=== PATIENT | female | born 1970 | race Caucasian/White ===

== ENCOUNTER 2024-04-03 21:15 | Emergency (ER) | payer OTHER, MEDICAID, SELFPAY ==
[2024-04-03 21:16] VITALS: BMI 37.0
[2024-04-03 21:31] VITALS: BP 151/87; PULSE 79; RESP 16; TEMP 36.4; O2SAT 96
--- NOTE | 2024-04-03 21:43 | XR_ITS ---
Examination: PA lateral chest 2 views Technique: Upright PA lateral chest 2 views Exam date and time: April 03, 2024 1006 hrs. Comparison 02/02/2024 Indications: Chest pain today. Findings: Bilateral perihilar basilar pneumonia with bilateral subsegmental atelectasis Minor prominence left ventricle Mild vascular congestion Impression: Bilateral perihilar bibasilar pneumonia
--- NOTE | 2024-04-03 21:43 | EKG_ITS ---
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) Order Number: [id number] Reading MD: Donald Staley ([facility]) Measurements Intervals [place] Rate: 77 P: 66 [place]: 153 QRS: 106 QRSD: 96 T: 66 QT: 331 QTc: 377 Interpretive Statements SINUS RHYTHM MARKED RIGHT AXIS DEVIATION [QRS AXIS > 100] LOW QRS VOLTAGE IN PRECORDIAL LEADS [QRS DEFLECTION < 1.0 mV IN CHEST LEADS] NONSPECIFIC T-WAVE ABNORMALITY Compared to ECG 02/02/2024 21:33:24 Right-axis deviation now present Low QRS voltage now present T-wave abnormality now present /store/S0/[id number]/ecg/[id number].pdf
--- NOTE | 2024-04-03 21:47 | PD.EDRME ---
Rapid Medical Screening Exam RME Arrival date/time: 04/03/24 21:15 53-year-old female with past medical history of diabetes hyperlipidemia and CHF presents emergency department complaining of chest pain has been ongoing for several months. Chief Complaint: Chest Pain Time Seen by Provider: 04/03/24 21:35 Vital signs: Vital Signs Temperature 97.5 F 04/03/24 21:31 Pulse Rate 79 04/03/24 21:31 Respiratory Rate 16 04/03/24 21:31 Blood Pressure 151/87 H 04/03/24 21:31 Pulse Oximetry (%) 96 04/03/24 21:31 Oxygen Delivery Method Room Air 04/03/24 21:31 Vital signs reviewed by provider: Yes
[2024-04-03 22:13] LABS: Collection Type, Urine Clean Catch
[2024-04-03 22:18] LABS: Basophils % (Auto) 0 % (0-2.5); Eosinophils # (Auto) 0.2 Thou/mm3 (0.0-0.5); Eosinophils % (Auto) 2 % (0-10); Hematocrit 41.3 % (36.0-46.0); Hemoglobin 13.4 g/dL (12.0-16.0); Immature Granulocytes % (Auto) 1 % (0-0); Immature Granulocytes Auto 0.05 Thou/mm3 (0.00-0.00); Lymphocytes # (Auto) 1.8 Thou/mm3 (1.0-4.8); Lymphocytes % (Auto) 18 % (10-50); Mean Corpuscular HGB Conc 32.4 g/dl (31.0-37.0); Mean Corpuscular Hemoglobin 30.2 pg (25.0-35.0); Mean Corpuscular Volume 93 fL (80-100); Monocytes # (Auto) 0.9 Thou/mm3 (0.0-0.8); Monocytes % (Auto) 9 % (0-12); Neutrophils # (Auto) 7.2 Thou/mm3 (1.8-7.7); Neutrophils % (Auto) 71 % (37-80); Nucleated Red Blood Cell % 0 /100 WBC (0); Platelet Count 313 Thou/mm3 (140-440); RDW Standard Deviation 46.6 fL (36.4-46.3); Red Blood Count 4.43 Miln/mm3 (4.00-5.20); White Blood Count 10.1 Thou/mm3 (3.6-11.0)
[2024-04-03 22:32] LABS: Bilirubin,Urine Negative (Negative); Blood,Urine Negative (Negative); Clarity,Urine Clear (Clear/Hazy); Color,Urine Colorless (Lt Yel-Yel); Glucose, Urine Negative (Negative); Ketones,Urine Negative (Negative); Leukocyte Esterase,Urine Negative (Negative); Nitrite,Urine Negative (Negative); Protein,Urine Negative (Neg - Trace); RBC,Urine 1 /hpf (0-3); Specific Gravity,Urine 1.006 (1.001-1.035); Squamous Epithelial Cell,Urine 1 /hpf (0-5); Urobilinogen,Urine Negative mg/dL (0.0-1.0); WBC,Urine < 1 /hpf (0-5)
[2024-04-03 22:34] LABS: INR 0.9 (0.9-1.3); Partial Thromboplastin Time 23.7 Seconds (22.0-36.0); Prothrombin Time 10.3 Seconds (9.0-12.2)
[2024-04-03 22:39] LABS: B-Type Natriuretic Peptide < 20 pg/mL (0-100)
[2024-04-03 22:47] LABS: Alanine Aminotransferase 21 U/L (10-49); Albumin, Serum 4.4 gm/dL (3.5-5.0); Albumin/Globulin Ratio 1.7 (1.2-2.2); Alkaline Phosphatase 105 U/L (46-116); Anion Gap 3 (7-16); Aspartate Amino Transferase 14 U/L (0-34); BUN/Creatinine Ratio 13 Ratio (12-20); Bilirubin,Total 0.2 mg/dL (0.3-1.2); Blood Urea Nitrogen 13 mg/dL (9-23); Calcium 10.7 mg/dL (8.3-10.6); Calcium (Corrected) 10.7 mg/dL (8.5-10.1); Chloride 100 mMol/L (98-107); Globulin 2.6 gm/dL (2.3-3.5); Glucose 183 mg/dL (74-106); Magnesium 1.7 mg/dL (1.6-2.6); Osmolality,Calculated 277 (275-295); Potassium 4.1 mMol/L (3.4-5.1); Sodium 136 mMol/L (136-145); Troponin I < 0.020 ng/mL (0.0-0.045); eGFR > 60 See Note
[2024-04-03 23:59] LABS: Amphetamine/Methamp Scrn,U Negative (Negative); Barbiturate Screen,Urine Negative (Negative); Benzodiazepines Screen,Urine Negative (Negative); Benzoylecgonine Screen, Ur Negative (Negative); Fentanyl Screen,Urine Positive (Negative); Opiate Screen,Urine Negative (Negative); THC Screen,Urine Positive (Negative)
--- NOTE | 2024-04-04 00:46 | PD.EDCHEST ---
ED Chest Pain RME/HPI General Chief Complaint: Chest Pain Stated Complaint: CHEST PAIN RADIATES TO BACK Time Seen by Provider: 04/03/24 21:35 Source: patient Arrival date/time: 04/03/24 21:15 53-year-old female with past medical history of diabetes hyperlipidemia and CHF presents emergency department complaining of chest pain has been ongoing for several months. Patient denies any fever, chills, shortness of breath, nausea vomiting, palpitations, or any other associated symptom. Mode of arrival: ambulatory Limitations: physical limitation RME / HPI RME / HPI narrative: 04/03/24 21:15 53-year-old female with past medical history of diabetes hyperlipidemia and CHF presents emergency department complaining of chest pain has been ongoing for several months. Related Data Home Medications ?Medication ?Instructions ?Recorded ?Confirmed lithium carbonate 300 mg 300 mg PO BID ##0 04/22/17 11/14/22 tablet,extended release montelukast 10 mg tablet 10 mg PO QDAY #0 tabs 05/31/17 11/14/22 (Singulair) dexlansoprazole 60 mg 60 mg PO DAILY 11/18/20 11/14/22 capsule,biphase delayed release (Dexilant) pregabalin 75 mg capsule 75 mg PO TID PRN Pain 11/18/20 11/14/22 risperidone 3 mg tablet 6 mg PO HS 11/18/20 11/14/22 atorvastatin 40 mg tablet 40 mg PO DAILY 12/08/21 11/14/22 ropinirole 5 mg tablet 5 mg PO HS 12/08/21 11/14/22 tizanidine 4 mg tablet 4 mg PO BID 12/08/21 11/14/22 levothyroxine 50 mcg tablet 50 mcg PO DAILY 12/09/21 11/14/22 naloxegol 25 mg tablet (Movantik) 25 mg PO DAILY 12/09/21 11/14/22 paroxetine HCl 40 mg tablet 40 mg PO HS 05/13/22 11/14/22 buspirone 15 mg tablet 15 mg PO TID 06/21/22 11/14/22 docusate sodium 100 mg capsule 100 mg PO TID 06/21/22 11/14/22 insulin glargine 100 unit/mL (3 36 unit subcut QPM 06/21/22 11/14/22 mL) subcutaneous pen (Basaglar KwikPen U-100 Insulin) lamotrigine 100 mg tablet 150 mg PO BID 06/21/22 11/14/22 metformin 500 mg tablet 500 mg PO BID 06/21/22 11/14/22 quetiapine 300 mg tablet 300 mg PO HS 06/21/22 11/14/22 trazodone 150 mg tablet 375 mg PO HS 06/21/22 11/14/22 Previous Rx's ?Medication ?Instructions ?Recorded acetaminophen 500 mg capsule 1,000 mg (2 x 500 mg) PO TID #30 12/15/22 caps benzonatate 200 mg capsule 200 mg PO TID PRN cough #20 caps 12/15/22 pantoprazole 40 mg tablet,delayed 40 mg PO QDAY #20 tabs 01/16/24 release (Protonix) levofloxacin 750 mg tablet 750 mg PO QDAY 5 days #5 tabs 04/04/24 Allergies Allergy/AdvReac Type Severity Reaction Status Date / Time chocolate flavor Allergy Severe BLISTERS Verified 12/25/23 19:12 IN MOUTH NSAIDS (Non-Steroidal Allergy Severe Nausea Verified 12/25/23 19:12 Anti-Inflamma gold Au 198 Allergy Intermediate RASH Verified 12/25/23 19:12 ibuprofen Allergy Intermediate NAUSEA AND Verified 12/25/23 19:12 VOMITING promethazine Allergy Mild RASH/SOB Verified 12/25/23 19:12 ketorolac AdvReac Unknown NAUSEA Verified 12/25/23 19:12 VOMITING, STOMACH UPSET Review of Systems Review of Systems Systems Reviewed: All systems reviewed, normal except as documented Constitutional Constitutional: Reports system reviewed and no additional complaints, except as documented, Denies body ache(s), Denies chills and Denies fever(s) Eyes Eyes: Reports system reviewed and no additional complaints, except as documented and Denies change in vision ENT Ears, Nose, Mouth, and Throat: Reports system reviewed and no additional complaints, except as documented, Denies disequilibrium, Denies dizziness, Denies sore throat and Denies vertigo Cardiovascular Cardiovascular: Reports system reviewed and no additional complaints, except as documented, Reports chest pain and Denies dyspnea Respiratory Respiratory: Reports system reviewed and no additional complaints, except as documented, Denies chest congestion, Denies cough and Denies dyspnea Gastrointestinal Gastrointestinal: Reports system reviewed and no additional complaints, except as documented, Denies abdominal pain, Denies nausea and Denies vomiting Musculoskeletal Musculoskeletal: Reports system reviewed and no additional complaints, except as documented, Denies abnormal gait and Denies arthralgias Integumentary/Breasts Skin/Breast: Reports system reviewed and no additional complaints, except as documented, Denies erythema, Denies rash and Denies wounds Neurologic Neurologic: Reports system reviewed and no additional complaints, except as documented, Denies abnormal gait, Denies disequilibrium, Denies dizziness and Denies vertigo Past Medical History Past Medical History NEUROLOGIC: Positive Neurological Disorders, Seizures, Spina Bifida, Migraine and Spinal Cord Injury CARDIAC: Positive Cardiac Disorders, Myocardial Infarction, Cardiac Arrhythmia, Angina, Hypercholesterolemia, Congestive Heart Failure, Edema and Hypertension RESPIRATORY: Positive Chronic Obstructive Pulmonary Disease (COPD), Asthma and Pneumonia GASTROINTESTINAL: Positive Gastrointestinal Disorders, Pancreatitis, Hiatal Hernia and Obesity; Negative Hepatitis GENITOURINARY: Negative Genitourinary Disorders or Renal Disease REPRODUCTIVE: Positive Previous Pregnancies MUSCULOSKELETAL: Positive Musculoskeletal Disorders, Arthritis, Fibromyalgia and Fractures ENT: Positive Cataracts ENDOCRINE: Positive Endocrine Disorders, Diabetes Mellitus Type 2 and Hypothyroidism; Negative Diabetes Mellitus Type 1 HEMATOLOGIC: Positive Blood Disorders and Anemia; Negative Sickle Cell Disease PSYCHO/SOCIAL: Positive Psychiatric Problems, Recreational Drug Use, Bipolar Disorder, Depression, Anxiety and Post Traumatic Stress Disorder; Negative Self-Mutilation or Depression OTHER HISTORY: Positive Hospitalization and Blood Transfusions; Negative Autoimmune Disease, Shingles, Falls, Blood Transfusion Reaction, Anesthesia Reactions, Chemotherapy, Radiation Therapy, MRSA, Chicken Pox, Measles, Mumps or Cancer Family History FAMILY HISTORY: Positive Family Cardiac Disorders and Family Surgery; Negative Family Psychiatric Problems, Family Respiratory Disorders, Family Gastrointestinal Problems, Family Cancer or Family Anesthesia Reaction Surgical History SURGICAL: Positive Hysterectomy, Tubal Ligation and Section; Negative Cardiac Surgery, Endocrine Surgery or Abdominal Surgery Social History SMOKING STATUS: Former smoker SUBSTANCE USE: marijuana ED Exam General Limitations: Present physical limitation General appearance: Present alert and in no apparent distress Head Head exam: Present atraumatic Eye Eye exam: Present normal appearance, PERRL and EOMI ENT ENT exam: Present normal exam, normal oropharynx and mucous membranes moist Neck Neck exam: Present normal inspection, full ROM and trachea midline Chest Chest inspection: Present normal inspection and symmetric chest wall rise Respiratory Respiratory exam: Present normal lung sounds bilaterally Cardiovascular Cardiovascular exam: Present regular rate, normal rhythm and normal heart sounds Abdominal Exam Abdominal exam: Present soft and normal bowel sounds Extremities Exam Extremities exam: Present normal inspection and full ROM Back Exam Back exam: Present normal inspection and full ROM Neurological Exam Neurological exam: Present alert, oriented X3 and CN II-XII intact Psychiatric Psychiatric exam: Present normal affect and normal mood Skin Skin exam: Present warm, dry, intact and normal color Course Quality Measures none Orders Category Date Time Status EKG (ED ONLY) *Do not use* NOW Care 04/03/24 21:43 Completed EKG (ED Only) Stat Exams 04/03/24 21:43 Draft XR chest 2V Stat Exams 04/03/24 21:43 Completed B-Type Natriuretic Peptide Stat Lab 04/03/24 21:56 Completed CBC Stat Lab 04/03/24 21:56 Completed Comprehensive Metabolic Panel Stat Lab 04/03/24 21:56 Completed Drug Screen,Urine Stat Lab 04/03/24 22:01 Completed LDH (Lactate Dehydrogenase) Stat Lab 04/03/24 21:56 Completed Magnesium Stat Lab 04/03/24 21:56 Completed Partial Thromboplastin Time Stat Lab 04/03/24 21:56 Completed Prothrombin Time with INR Stat Lab 04/03/24 21:56 Completed Troponin I Stat Lab 04/03/24 21:56 Completed Urinalysis Stat Lab 04/03/24 22:01 Completed cefTRIAXone [Rocephin] 1,000 mg Med 04/04/24 00:43 Discontinued Lidocaine 1% 20 ml [Xylocaine 1% 20 ML] 2.1 ml IM X1 Vital Signs Vital signs: Vital Signs Temperature 97.5 F 04/03/24 21:31 Pulse Rate 79 04/03/24 21:31 Respiratory Rate 16 04/03/24 21:31 Blood Pressure 151/87 H 04/03/24 21:31 Pulse Oximetry (%) 96 04/03/24 21:31 Oxygen Delivery Method Room Air 04/03/24 21:31 96% room air within normal limits Procedures -ED EKG Interpretation #1: Date of EK04/03/24 Time of EK:54 Rate: 77 Interpretation: Interpreted by me EKG Impression: Normal sinus rhythm, No acute ST-T changes, No ectopy and No ischemic changes Chest Pain MDM Narrative MDM Narrative:: 53-year-old female with past medical history of diabetes hyperlipidemia and CHF presents emergency department complaining of chest pain has been ongoing for several months. Patient denies any fever, chills, shortness of breath, nausea vomiting, palpitations, or any other associated symptom. CBC remarkable for any leukocytosis. CMP was unremarkable with BNP and troponin within normal limits. EKG normal sinus rhythm. Urinalysis was unremarkable. X-ray of chest findings Bilateral perihilar bibasilar pneumonia. Patient appears nontoxic and hemodynamically stable. Patient does not appear to be in any respiratory distress. Patient speaking in full sentences. Patient given IM Rocephin and discharged home on oral antibiotics. Instructed patient to have close follow-up with primary care provider in 24 to 48 hours and return to emergency department for any worsening symptoms or as needed. Patient data External records reviewed:: [facility] Clinical information provided by:: patient Social determinants that could affect healthcare access:: none Patient has the following chronic illnesses:: See chart How is presenting disease/condition affected by chronic disease/condition?: uneffected by Evaluation data The following diagnostics were reviewed and interpreted by me:: radiology exam(s) and EKG tracing(s) Lab and/or radiology exams considered but not ordered:: Ordered Interpretation Summary: Interpreted by me Medications / Prescriptions Medications or Prescriptions considered but not ordered:: Ordered Medication administrations:: Medication Administration History Discontinued Medications Ceftriaxone Sodium 1,000 mg/ (Lidocaine HCl 2.1 ml) 0 mg IM X1 ONE Stop: 04/04/24 00:44 Last Admin: 04/04/24 00:58 Dose: 1,000 mg Documented By: CARMEN Given Consultations Consultation(s) initiated? (list below): No Diagnosis Chest Pain Differential Diagnosis: stable angina, unstable angina pectoris, atypical chest pain, st elevation myocardial infarction, chest pain and biliary colic Most likely diagnosis given after review of the tests above:: Pneumonia Noncardiac chest pain Admission Indicated Admission indicated?: not indicated Admission Request Was there a request for admission?: No Disposition Plan Disposition Plan: Discharge Discharge Attestation Discharge Attestation: The patient and all family members were given an opportunity to ask questions and understood the discharge instructions. Discharge instructions specifically effects, indications for sooner follow up or return to the emergency department, and the expected course of current diagnosis. Patient condition: Stable Discharge Plan Plan Patient Disposition: HOME (Self Care) Disposition Comment: Stable Prescriptions/Referrals Prescriptions/Med Rec: New levofloxacin 750 mg tablet 750 mg PO QDAY 5 Days Qty: 5 0RF No Action lithium carbonate 300 MG tablet extended release 300 mg PO BID Qty: 0 montelukast [Singulair] 10 MG tablet 10 mg PO QDAY Qty: 0 risperidone 3 mg tablet 6 mg PO HS Patient Comments: TAKE TWO TABLETS BY MOUTH AT BED TIME pregabalin 75 mg capsule 75 mg PO TID PRN (Reason: Pain) Patient Comments: TAKE ONE TABLET BY MOUTH THREE TIMES DAILY dexlansoprazole [Dexilant] 60 mg capsule,biphase delayed releas 60 mg PO DAILY Patient Comments: TAKE ONE CAPSULE BY MOUTH EVERY DAY FOR HEARTBURN GASTRIC ACIDITY atorvastatin 40 mg tablet 40 mg PO DAILY tizanidine 4 mg tablet 4 mg PO BID Patient Comments: TAKE ONE TABLET BY MOUTH TWICE DAILY ropinirole 5 mg tablet 5 mg PO HS Patient Comments: TAKE ONE TABLET BY MOUTH AT BEDTIME levothyroxine 50 mcg tablet 50 mcg PO DAILY Patient Comments: TAKE ONE TABLET BY MOUTH EVERY MORNING 30 minutes BEFORE BREAKFAST Movantik 25 mg tablet 25 mg PO DAILY Patient Comments: TAKE ONE TABLET BY MOUTH EVERY DAY metformin 500 mg tablet 500 mg PO BID Patient Comments: TAKE ONE TABLET BY MOUTH TWICE DAILY FOR DIABETES quetiapine 300 mg Tablet 300 mg PO HS trazodone 150 mg Tablet 375 mg PO HS Rx Instructions: Take 2.5 tab po HS docusate sodium 100 mg Capsule 100 mg PO TID lamotrigine 100 mg Tablet 150 mg PO BID buspirone 15 mg Tablet 15 mg PO TID insulin glargine [Basaglar KwikPen U-100 Insulin] 100 unit/mL (3 mL) insulin pen 36 unit SUBCUT QPM Patient Comments: INJECT 36 UNITS SUBCUTANEOUSLY EVERY EVENING FOR DIABETES paroxetine HCl 40 mg tablet 40 mg PO HS Patient Comments: TAKE ONE TABLET BY MOUTH EVERY DAY AT BED TIME benzonatate 200 mg capsule 200 mg PO TID PRN (Reason: cough) Qty: 20 0RF acetaminophen 500 mg capsule 1,000 mg PO TID Qty: 30 0RF pantoprazole [Protonix] 40 mg tablet,delayed release (DR/EC) 40 mg PO QDAY Qty: 20 0RF Referrals: Scott Lara MD [Primary Care Provider] - In 1 week Problem List Clinical Impression: Pneumonia, Non-cardiac chest pain Patient/Caregiver Discharge Instructions Discharge Activity: activity as tolerated Education Materials: ED Pneumonia (Adult) Additional Instructions: Take medication as prescribed. Close follow-up with primary care provider in 24 to 48 hours. Return to emergency department for any worsening symptoms or as needed. Print Language: Turkish Stand Alone Forms: [employer] Award Info., Patient Portal Info Letter Attestation Attestation The patient was seen by the midlevel practitioner. I, the co-signing physician, was present during the entire ER visit. While I did not physically examine the patient, I was available for consultation as needed.
[2024-04-04] MEDS: cefTRIAXone 1,000 MG, LIDOCAINE 1% 20 ML 2.1 ML IM (00:58)
[2024-04-04 01:00] VITALS: BP 147/67; PULSE 87; RESP 18; TEMP 37.1; O2SAT 99
[2024-04-04 02:54] LABS: LDH (Lactate Dehydrogenase) 178 U/L (120-246)
== END 2024-04-04 01:03 | disposition home or self-care (01) ==
PROVIDERS: Emergency Provider Emergency Medicine; PCP Family Medicine
DX: J18.9 Pneumonia, unspecified organism (principal); R94.31 Abnormal electrocardiogram [ECG] [EKG]; I11.0 Hypertensive heart disease with heart failure; I50.9 Heart failure, unspecified; E78.00 Pure hypercholesterolemia, unspecified; I25.2 Old myocardial infarction; Z87.891 Personal history of nicotine dependence
CPT/HCPCS: 36415; 71046; 80053; 80307; 81001; 83615; 83735; 83880; 84484; 85025; 85610; 85730; 93005; 96372; 99283; J0696; J3490

== ENCOUNTER → 2024-05-28 | Outpatient (CLI) | payer OTHER, MEDICAID, SELFPAY ==
[2024-05-28 10:23] LABS: Alanine Aminotransferase 36 U/L (10-49); Albumin, Serum 4.2 gm/dL (3.5-5.0); Albumin/Globulin Ratio 1.8 (1.2-2.2); Alkaline Phosphatase 115 U/L (46-116); Anion Gap 6 (7-16); Aspartate Amino Transferase 19 U/L (0-34); BUN/Creatinine Ratio 12 Ratio (12-20); Bilirubin,Total < 0.2 mg/dL (0.3-1.2); Blood Urea Nitrogen 12 mg/dL (9-23); Calcium 9.6 mg/dL (8.3-10.6); Calcium (Corrected) 9.6 mg/dL (8.5-10.1); Carbon Dioxide 31.3 mMol/L (20.0-31.0); Cardiac Risk Estimate 3.7 RATIO (3.7-5.6); Chloride 103 mMol/L (98-107); Cholesterol 152 mg/dL (132-200); Free T4 (Free Thyroxine) 0.78 ng/dL (0.89-1.76); Globulin 2.3 gm/dL (2.3-3.5); Glucose 193 mg/dL (74-106); HDL Cholesterol 41 mg/dL (40-60); LDL Cholesterol,Calculated 64 mg/dL (0-130); Osmolality,Calculated 284 (275-295); Potassium 4.2 mMol/L (3.4-5.1); Sodium 140 mMol/L (136-145); Thyroid Stimulating Hormone 5.48 uIU/mL (0.55-4.78); Total Protein 6.5 gm/dL (5.7-8.2); Triglycerides 234 mg/dL (30-150); eGFR > 60 See Note
[2024-05-29 14:46] LABS: Vitamin D 25 Hydroxy Total 31.2 ng/mL (7.3-40.2)
[2024-06-03 06:54] LABS: Direct LDL* 70 mg/dL (<100)
== END | disposition home or self-care (01) ==
LOC: COPL 08:48
PROVIDERS: PCP Family Medicine; Referring Provider Psychiatry & Neurology Child & Adolescent Psychiatry; Visit Provider Psychiatry & Neurology Child & Adolescent Psychiatry
DX: Z15.81 Genetic susceptibility to multiple endocrine neoplasia [MEN] (principal); Z13.29 Encounter for screening for other suspected endocrine disorder; Z13.228 Encounter for screening for other metabolic disorders; Z79.899 Other long term (current) drug therapy
CPT/HCPCS: 36415; 80053; 80061; 82306; 83721; 84439; 84443

== ENCOUNTER 2024-07-06 00:51 | Emergency (ER) | payer OTHER, MEDICAID, SELFPAY ==
[2024-07-06 00:52] VITALS: BMI 38.0
[2024-07-06 01:45] VITALS: BP 120/66; PULSE 90; RESP 19; TEMP 36.4; O2SAT 92
--- NOTE | 2024-07-06 01:46 | PD.EDABDPN ---
ED Abdominal Pain RME/HPI General Chief Complaint: Abdominal Pain Stated complaint: WHOLE [place]ORSO PAIN Time seen by provider: 07/06/24 01:14 Arrival date/time: 07/06/24 00:51 RME / HPI RME / HPI narrative: This section includes all my notes and documentations, including HPI, PE, and ED course. Jose Luis Love MD HPI: 53yo female with a history of CHF, COPD, HTN, HLD, DM, asthma accompanied by her nephew presents to the ED for complaints of generalized chest pain and shortness of breath. Patient states she's had a productive cough with yellow phlegm, shortness of breath, and chest pain for the last 1 week, reporting it got significantly worse tonight, so she came in for evaluation. She reports associated chills. She denies any fever, body aches or any other associated symptoms. She is a current tobacco smoker. No other complaints reported. ROS: All negative except as documented in HPI. Physical Exam: General: Alert and oriented. No acute distress when remaining still. Eyes: Conjunctivae and lids clear. ENT: No nasal congestion. Neck: Supple. Heart: RRR. Lungs: No respiratory distress. Decreased air movement. Diffuse wheezing. No rhonchi, rales. Abdomen: Soft and nontender. Legs: No clubbing, cyanosis, edema. Skin: Warm and dry. Neuro: Alert and oriented X 3. I reviewed all diagnostic test results. My interpretation of the EKG is sinus rhythm no acute ST-T changes. My interpretation of the chest x-ray is infiltrates. Covid/Influenza negative. At this point, diagnoses include pneumonia. Treatment here included Tylenol with Codeine, Duoneb, Prednisone, Zithromax, and Cefdinir. Significant improvement noted. Recommended a trial of treatment at home. Based on my best medical judgment, made decision no further evaluation or treatment indicated at this time. Patient understands and agrees to the discharge instructions customized and printed, see below. Discharge instructions from Dr. Love: --No physical exertion for 3 days to help rest the lungs. ?No smoking or exposure to smoking or pets or dust or cold air. --Zithromax and cefdinir to kill the germs causing the bronchitis. --Prednisone to help decrease the swelling in the airways. --Tylenol with codeine for severe cough for severe pain. --Albuterol 2 puffs with the spacer every 4-6 hours for 3 days to help keep the airways open. Then as needed for cough or shortness of breath. --See a private doctor on 07/08/2024 for recheck and further care. --Seek immediate medical care with worsening or with any concerns. Jose Luis Love MD Related Data Home Medications ?Medication ?Instructions ?Recorded ?Confirmed lithium carbonate 300 mg 300 mg PO BID ##0 04/22/17 11/14/22 tablet,extended release montelukast 10 mg tablet 10 mg PO QDAY #0 tabs 05/31/17 11/14/22 (Singulair) dexlansoprazole 60 mg 60 mg PO DAILY 11/18/20 11/14/22 capsule,biphase delayed release (Dexilant) pregabalin 75 mg capsule 75 mg PO TID PRN Pain 11/18/20 11/14/22 risperidone 3 mg tablet 6 mg PO HS 11/18/20 11/14/22 atorvastatin 40 mg tablet 40 mg PO DAILY 12/08/21 11/14/22 ropinirole 5 mg tablet 5 mg PO HS 12/08/21 11/14/22 tizanidine 4 mg tablet 4 mg PO BID 12/08/21 11/14/22 levothyroxine 50 mcg tablet 50 mcg PO DAILY 12/09/21 11/14/22 naloxegol 25 mg tablet (Movantik) 25 mg PO DAILY 12/09/21 11/14/22 paroxetine HCl 40 mg tablet 40 mg PO HS 05/13/22 11/14/22 buspirone 15 mg tablet 15 mg PO TID 06/21/22 11/14/22 docusate sodium 100 mg capsule 100 mg PO TID 06/21/22 11/14/22 insulin glargine 100 unit/mL (3 36 unit subcut QPM 06/21/22 11/14/22 mL) subcutaneous pen (Samariaar Manda U-100 Insulin) lamotrigine 100 mg tablet 150 mg PO BID 06/21/22 11/14/22 metformin 500 mg tablet 500 mg PO BID 06/21/22 11/14/22 quetiapine 300 mg tablet 300 mg PO HS 06/21/22 11/14/22 trazodone 150 mg tablet 375 mg PO HS 06/21/22 11/14/22 Previous Rx's ?Medication ?Instructions ?Recorded acetaminophen 500 mg capsule 1,000 mg (2 x 500 mg) PO TID #30 12/15/22 caps benzonatate 200 mg capsule 200 mg PO TID PRN cough #20 caps 12/15/22 pantoprazole 40 mg tablet,delayed 40 mg PO QDAY #20 tabs 01/16/24 release (Protonix) acetaminophen 300 mg-codeine 30 mg 2 tab PO TID PRN pain #20 tabs 07/06/24 tablet albuterol sulfate 90 mcg/actuation 2 inh inhalation QID PRN shortness 07/06/24 aerosol inhaler of breath or wheezing #8.5 grams azithromycin 500 mg tablet 500 mg PO QDAY 3 days #3 tabs 07/06/24 (Zithromax TRI-JAYDEN) cefdinir 300 mg capsule 300 mg PO BID #14 caps 07/06/24 prednisone 20 mg tablet 40 mg PO BID 3 days #12 tabs 07/06/24 Allergies Allergy/AdvReac Type Severity Reaction Status Date / Time chocolate flavor Allergy Severe BLISTERS Verified 12/25/23 19:12 IN MOUTH NSAIDS (Non-Steroidal Allergy Severe Nausea Verified 12/25/23 19:12 Anti-Inflamma gold Au 198 Allergy Intermediate RASH Verified 12/25/23 19:12 ibuprofen Allergy Intermediate NAUSEA AND Verified 12/25/23 19:12 VOMITING promethazine Allergy Mild RASH/SOB Verified 12/25/23 19:12 ketorolac AdvReac Unknown NAUSEA Verified 12/25/23 19:12 VOMITING, STOMACH UPSET Review of Systems Review of Systems Systems Reviewed: All systems reviewed, normal except as documented Past Medical History Past Medical History NEUROLOGIC: Positive Neurological Disorders, Seizures, Spina Bifida, Migraine and Spinal Cord Injury CARDIAC: Positive Cardiac Disorders, Myocardial Infarction, Cardiac Arrhythmia, Angina, Hypercholesterolemia, Congestive Heart Failure, Edema and Hypertension RESPIRATORY: Positive Chronic Obstructive Pulmonary Disease (COPD), Asthma and Pneumonia GASTROINTESTINAL: Positive Gastrointestinal Disorders, Pancreatitis, Hiatal Hernia and Obesity; Negative Hepatitis GENITOURINARY: Negative Genitourinary Disorders or Renal Disease REPRODUCTIVE: Positive Previous Pregnancies MUSCULOSKELETAL: Positive Musculoskeletal Disorders, Arthritis, Fibromyalgia and Fractures ENT: Positive Cataracts ENDOCRINE: Positive Endocrine Disorders, Diabetes Mellitus Type 2 and Hypothyroidism; Negative Diabetes Mellitus Type 1 HEMATOLOGIC: Positive Blood Disorders and Anemia; Negative Sickle Cell Disease PSYCHO/SOCIAL: Positive Psychiatric Problems, Recreational Drug Use, Bipolar Disorder, Depression, Anxiety and Post Traumatic Stress Disorder; Negative Self-Mutilation or Depression OTHER HISTORY: Positive Hospitalization and Blood Transfusions; Negative Autoimmune Disease, Shingles, Falls, Blood Transfusion Reaction, Anesthesia Reactions, Chemotherapy, Radiation Therapy, MRSA, Chicken Pox, Measles, Mumps or Cancer Family History FAMILY HISTORY: Positive Family Cardiac Disorders and Family Surgery; Negative Family Psychiatric Problems, Family Respiratory Disorders, Family Gastrointestinal Problems, Family Cancer or Family Anesthesia Reaction Surgical History SURGICAL: Positive Hysterectomy, Tubal Ligation and Section; Negative Cardiac Surgery, Endocrine Surgery or Abdominal Surgery Social History SMOKING STATUS: Current every day smoker SUBSTANCE USE: marijuana ED Exam Narrative Physical exam: As noted in HPI. Course Course Course Narrative: CXR is ordered for determining the etiology of shortness of breath. Quality Measures none Orders Category Date Time Status Bedside COVID-19 Antigen Test NOW Care 07/06/24 01:47 Completed Bedside Influenza A&B Antigen Test NOW Care 07/06/24 01:47 Completed EKG (ED ONLY) *Do not use* NOW Care 07/06/24 01:47 Completed EKG (ED Only) Stat Exams 07/06/24 01:47 Draft XR chest 1V portable Stat Exams 07/06/24 01:47 Completed ACETAMINOPHEN w/COD 300-30 [Tylenol w/Cod #3] Med 07/06/24 01:47 Discontinued 2 tab PO X1 ONE Albuterol/Ipratr Rt Ignacia [Duoneb Rt Ignacia] Med 07/06/24 01:47 Discontinued 6 ml INH X1 ONE Azithromycin Po [Zithromax PO] Med 07/06/24 04:00 Discontinued 500 mg PO X1 ONE Cefdinir [Omnicef] Med 07/06/24 04:00 Discontinued 300 mg PO X1 ONE predniSONE Med 07/06/24 01:47 Discontinued 80 mg PO X1 ONE Vital Signs Vital signs: Vital Signs Temperature 97.6 F 07/06/24 01:45 Pulse Rate 90 07/06/24 01:45 Respiratory Rate 19 07/06/24 01:45 Blood Pressure 120/66 07/06/24 01:45 Pulse Oximetry (%) 92 L 07/06/24 01:45 Oxygen Delivery Method Room Air 07/06/24 01:45 Procedures -ED Smoking Cessation Time Spent Discussing Smoking Cessation w/Patient (min): 5 Patient Acknowledges Need for Cessation: Yes Additional Comments: The patient was counseled as to the multiple risks to their health from continued use of tobacco products. It was explained that continuing to smoke may lead to multiple short and half-way negative health consequences, including but not limited to mouth/esophageal/lung cancer, COPD, and heart disease. The patient states she/he understands these risks and also understands the options and resources available to them to help them stop smoking. Nicotine replacement therapy, local hotlines, and local resources were discussed as viable options for helping them stop their tobacco use. The total time spent counseling the patient regarding tobacco cessation was 5 minutes. Abdominal Pain MDM MDM Narrative MDM Narrative:: Scribe Attestation: 07/06/24 - Tara Mcdonough am scribing for and in the presence of Dr. Love. Patient data External records reviewed:: [facility] previous records (Per chart review, patient was seen here on 04/04/24 for non-cardiac chest pain.) Clinical information provided by:: patient Social determinants that could affect healthcare access:: substance use (current tobacco smoker) Patient has the following chronic illnesses:: CHF, COPD, HTN, HLD, DM, asthma How is presenting disease/condition affected by chronic disease/condition?: exacerbated by Evaluation data The following diagnostics were reviewed and interpreted by me:: lab results, radiology exam(s) and EKG tracing(s) (My interpretation of the EKG is: Sinus rhythm (87 bpm) with nonspecific ST-T changes. Jose Luis Love MD) Lab and/or radiology exams considered but not ordered:: none Interpretation Summary: Pneumonia Medications / Prescriptions Medications or Prescriptions considered but not ordered:: none Medication administrations:: Medication Administration History Discontinued Medications Acetaminophen/Codeine Phosphate (Acetaminophen W/Cod 300-30 Tablet) 2 tab PO X1 ONE Stop: 07/06/24 01:48 Last Admin: 07/06/24 02:44 Dose: 2 tab Documented By: ALEXANDR Albuterol/Ipratropium (Albuterol/Ipratropium (Duoneb) Rt Ignacia 3 Ml Nebu) 6 ml INH X1 ONE Stop: 07/06/24 01:48 Last Admin: 07/06/24 03:40 Dose: 6 ml Documented By: ELIZABETH Azithromycin (Azithromycin 250 Mg Tablet) 500 mg PO X1 ONE Stop: 07/06/24 04:01 Last Admin: 07/06/24 04:16 Dose: 500 mg Documented By: ALEXANDR Cefdinir (Cefdinir 250 Mg/5 Ml Ml) 300 mg PO X1 ONE Stop: 07/06/24 04:01 Last Admin: 07/06/24 04:16 Dose: Not Given Documented By: ALEXANDR Non-Admin Reason: Medication Not Available Prednisone (Prednisone 20 Mg Tablet) 80 mg PO X1 ONE Stop: 07/06/24 01:48 Last Admin: 07/06/24 02:45 Dose: 80 mg Documented By: ALEXANDR Tylenol with Codeine, Duoneb, Prednisone, Zithromax, Cefdinir Consultations Consultation(s) initiated? (list below): No Diagnosis Differential diagnosis abdominal pain: other (Pneumonia, Influenza, Covid, Bronchitis) Most likely diagnosis given after review of the tests above:: Pneumonia Admission Indicated Admission indicated?: not indicated Explain why admission is indicated or not indicated:: No criteria for admission. Admission Request Was there a request for admission?: No Admission Attestation Admission request attestation: No criteria for admission Disposition Plan Disposition Plan: Discharge Discharge Attestation Discharge Attestation: The patient and all family members were given an opportunity to ask questions and understood the discharge instructions. Discharge instructions specifically effects, indications for sooner follow up or return to the emergency department, and the expected course of current diagnosis. Patient condition: Stable Discharge Plan Plan Patient Disposition: HOME (Self Care) Prescriptions/Referrals Prescriptions/Med Rec: New acetaminophen-codeine 300-30 mg tablet 2 tab PO TID MDD 6 PRN (Reason: pain) Qty: 20 0RF albuterol sulfate 90 mcg/actuation HFA aerosol inhaler 2 inh inhalation QID PRN (Reason: shortness of breath or wheezing) Qty: 8.5 0RF cefdinir 300 mg capsule 300 mg PO BID Qty: 14 0RF azithromycin [Zithromax TRI-JAYDEN] 500 mg tablet 500 mg PO QDAY 3 Days Qty: 3 0RF prednisone 20 mg tablet 40 mg PO BID 3 Days Qty: 12 0RF Taper: Prednisone Taper 20 mg DAILY for 2 Days and 0 Hour 10 mg DAILY for 2 Days and 0 Hour 5 mg DAILY for 7 Days and 0 Hour No Action lithium carbonate 300 MG tablet extended release 300 mg PO BID Qty: 0 montelukast [Singulair] 10 MG tablet 10 mg PO QDAY Qty: 0 risperidone 3 mg tablet 6 mg PO HS Patient Comments: TAKE TWO TABLETS BY MOUTH AT BED TIME pregabalin 75 mg capsule 75 mg PO TID PRN (Reason: Pain) Patient Comments: TAKE ONE TABLET BY MOUTH THREE TIMES DAILY dexlansoprazole [Dexilant] 60 mg capsule,biphase delayed releas 60 mg PO DAILY Patient Comments: TAKE ONE CAPSULE BY MOUTH EVERY DAY FOR HEARTBURN GASTRIC ACIDITY atorvastatin 40 mg tablet 40 mg PO DAILY tizanidine 4 mg tablet 4 mg PO BID Patient Comments: TAKE ONE TABLET BY MOUTH TWICE DAILY ropinirole 5 mg tablet 5 mg PO HS Patient Comments: TAKE ONE TABLET BY MOUTH AT BEDTIME levothyroxine 50 mcg tablet 50 mcg PO DAILY Patient Comments: TAKE ONE TABLET BY MOUTH EVERY MORNING 30 minutes BEFORE BREAKFAST Movantik 25 mg tablet 25 mg PO DAILY Patient Comments: TAKE ONE TABLET BY MOUTH EVERY DAY metformin 500 mg tablet 500 mg PO BID Patient Comments: TAKE ONE TABLET BY MOUTH TWICE DAILY FOR DIABETES quetiapine 300 mg Tablet 300 mg PO HS trazodone 150 mg Tablet 375 mg PO HS Rx Instructions: Take 2.5 tab po HS docusate sodium 100 mg Capsule 100 mg PO TID lamotrigine 100 mg Tablet 150 mg PO BID buspirone 15 mg Tablet 15 mg PO TID insulin glargine [Basaglar KwikPen U-100 Insulin] 100 unit/mL (3 mL) insulin pen 36 unit SUBCUT QPM Patient Comments: INJECT 36 UNITS SUBCUTANEOUSLY EVERY EVENING FOR DIABETES paroxetine HCl 40 mg tablet 40 mg PO HS Patient Comments: TAKE ONE TABLET BY MOUTH EVERY DAY AT BED TIME benzonatate 200 mg capsule 200 mg PO TID PRN (Reason: cough) Qty: 20 0RF acetaminophen 500 mg capsule 1,000 mg PO TID Qty: 30 0RF pantoprazole [Protonix] 40 mg tablet,delayed release (DR/EC) 40 mg PO QDAY Qty: 20 0RF Referrals: Scott Lara MD [Primary Care Provider] - In 1 week Problem List Clinical Impression: Pneumonia Patient/Caregiver Discharge Instructions Discharge Activity: activity as tolerated Education Materials: ED Pneumonia (Adult) Additional Instructions: Discharge instructions from Dr. Love: --No physical exertion for 3 days to help rest the lungs. ?No smoking or exposure to smoking or pets or dust or cold air. --Zithromax and cefdinir to kill the germs causing the bronchitis. --Prednisone to help decrease the swelling in the airways. --Tylenol with codeine for severe cough for severe pain. --Albuterol 2 puffs with the spacer every 4-6 hours for 3 days to help keep the airways open. Then as needed for cough or shortness of breath. --See a private doctor on 07/08/2024 for recheck and further care. --Seek immediate medical care with worsening or with any concerns. Print Language: Upper Sorbian Stand Alone Forms: [employer] Award Info., Patient Portal Info Letter
--- NOTE | 2024-07-06 01:47 | EKG_ITS ---
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
--- NOTE | 2024-07-06 01:47 | XR_ITS ---
Examination: PA chest single view Technique: Upright PA chest single view Exam date and time: July 06, 2024 0206 hrs. Indication: Shortness of breath today. Findings: Mild heart failure Mild enlargement cardiac contour Prominent vascular congestion with early septal edema at the lung bases Impression: Mild heart failure
[2024-07-06] MEDS: ACETAMINOPHEN w/COD 300-30 TABLET 2 TAB PO (02:44)
[2024-07-06] MEDS: predniSONE 20 MG TABLET 80 MG PO (02:45)
[2024-07-06] MEDS: ALBUTEROL/IPRATROPIUM (Duoneb) RT SOL 3 ML NEBU 6 ML INH (03:40)
[2024-07-06 03:44] VITALS: PULSE 73; RESP 18; O2SAT 97
[2024-07-06] MEDS: AZITHROMYCIN 250 MG TABLET 500 MG PO (04:16)
== END 2024-07-06 04:19 | disposition home or self-care (01) ==
PROVIDERS: Emergency Provider Emergency Medicine; PCP Family Medicine
DX: J18.9 Pneumonia, unspecified organism (principal); J44.0 Chronic obstructive pulmonary disease with (acute) lower respiratory infection; I11.0 Hypertensive heart disease with heart failure; I50.9 Heart failure, unspecified; E78.5 Hyperlipidemia, unspecified; E11.9 Type 2 diabetes mellitus without complications; F17.290 Nicotine dependence, other tobacco product, uncomplicated
CPT/HCPCS: 71045; 87400; 87811; 93005; 94640; 99283; A9270; J7512

== ENCOUNTER 2024-11-04 09:55 | Inpatient (IN) | payer OTHER, MEDICARE, SELFPAY ==
[2024-11-04] VITALS (25 sets, daily range): BP systolic 118–170; BP diastolic 64–98; PULSE 68–99; RESP 15–89; TEMP 36.6–37; O2SAT 90–98; BMI 36.6; BMI 32.5
--- NOTE | 2024-11-04 10:29 | EKG_ITS ---
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
--- NOTE | 2024-11-04 10:29 | PD.EDAMS ---
Altered Mental Status RME/HPI General Chief Complaint: Altered Mental Status Stated Complaint: AMS, aphasia, last seen normal Time Seen by Provider: 11/04/24 10:04 Arrival date/time: 11/04/24 09:55 Limitations: no limitations RME / HPI RME / HPI narrative: 53 year old female with a medical history of CHF, hypertension, diabetes, hyperlipidemia, COPD, asthma, depression, chronic back pain presents to the ED with altered mental status. Patient was brought in by her son who reports that the patient began feeling unwell three days ago Monday. Consulted her PCP, who prescribed promethazine. Since then, the patient has reportedly been taking the promethazine directly from the bottle without measuring the dose. Family became concerned about possible overdose, especially given her use of a Fentanyl patch and [place] for chronic lower back pain. Although they discontinued the promethazine, her mental status did not improve. Today, the patient is noted to be slurring her speech and confused. Due to mental status, the patient is unable to provide any additional history. Related Data Home Medications ?Medication ?Instructions ?Recorded ?Confirmed lithium carbonate 300 mg 300 mg PO BID ##0 04/22/17 11/14/22 tablet,extended release montelukast 10 mg tablet 10 mg PO QDAY #0 tabs 05/31/17 11/14/22 (Singulair) dexlansoprazole 60 mg 60 mg PO DAILY 11/18/20 11/14/22 capsule,biphase delayed release (Dexilant) pregabalin 75 mg capsule 75 mg PO TID PRN Pain 11/18/20 11/14/22 risperidone 3 mg tablet 6 mg PO HS 11/18/20 11/14/22 atorvastatin 40 mg tablet 40 mg PO DAILY 12/08/21 11/14/22 ropinirole 5 mg tablet 5 mg PO HS 12/08/21 11/14/22 tizanidine 4 mg tablet 4 mg PO BID 12/08/21 11/14/22 levothyroxine 50 mcg tablet 50 mcg PO DAILY 12/09/21 11/14/22 naloxegol 25 mg tablet (Movantik) 25 mg PO DAILY 12/09/21 11/14/22 paroxetine HCl 40 mg tablet 40 mg PO HS 05/13/22 11/14/22 buspirone 15 mg tablet 15 mg PO TID 06/21/22 11/14/22 docusate sodium 100 mg capsule 100 mg PO TID 06/21/22 11/14/22 insulin glargine 100 unit/mL (3 36 unit subcut QPM 06/21/22 11/14/22 mL) subcutaneous pen (Basaglar KwikPen U-100 Insulin) lamotrigine 100 mg tablet 150 mg PO BID 06/21/22 11/14/22 metformin 500 mg tablet 500 mg PO BID 06/21/22 11/14/22 quetiapine 300 mg tablet 300 mg PO HS 06/21/22 11/14/22 trazodone 150 mg tablet 375 mg PO HS 06/21/22 11/14/22 Previous Rx's ?Medication ?Instructions ?Recorded acetaminophen 500 mg capsule 1,000 mg (2 x 500 mg) PO TID #30 12/15/22 caps benzonatate 200 mg capsule 200 mg PO TID PRN cough #20 caps 12/15/22 pantoprazole 40 mg tablet,delayed 40 mg PO QDAY #20 tabs 01/16/24 release (Protonix) acetaminophen 300 mg-codeine 30 mg 2 tab PO TID PRN pain #20 tabs 07/06/24 tablet albuterol sulfate 90 mcg/actuation 2 inh inhalation QID PRN shortness 07/06/24 aerosol inhaler of breath or wheezing #8.5 grams cefdinir 300 mg capsule 300 mg PO BID #14 caps 07/06/24 Allergies Allergy/AdvReac Type Severity Reaction Status Date / Time chocolate flavor Allergy Severe BLISTERS Verified 11/04/24 10:00 IN MOUTH NSAIDS (Non-Steroidal Allergy Severe Nausea Verified 11/04/24 10:00 Anti-Inflamma gold Au 198 Allergy Intermediate RASH Verified 11/04/24 10:00 ibuprofen Allergy Intermediate NAUSEA AND Verified 11/04/24 10:00 VOMITING promethazine Allergy Mild RASH/SOB Verified 11/04/24 10:00 ketorolac AdvReac Unknown NAUSEA Verified 11/04/24 10:00 VOMITING, STOMACH UPSET Review of Systems Review of Systems ROS Unobtainable: unobtainable due to mental status Past Medical History Past Medical History NEUROLOGIC: Positive Neurological Disorders, Seizures, Spina Bifida, Migraine and Spinal Cord Injury CARDIAC: Positive Cardiac Disorders, Myocardial Infarction, Cardiac Arrhythmia, Angina, Hypercholesterolemia, Congestive Heart Failure, Edema and Hypertension RESPIRATORY: Positive Respiratory Disorders, Chronic Obstructive Pulmonary Disease (COPD), Asthma and Pneumonia GASTROINTESTINAL: Positive Gastrointestinal Disorders, Pancreatitis, Hiatal Hernia and Obesity GENITOURINARY: Positive Renal Disease REPRODUCTIVE: Positive Previous Pregnancies MUSCULOSKELETAL: Positive Musculoskeletal Disorders, Arthritis, Fibromyalgia and Fractures ENT: Positive Cataracts ENDOCRINE: Positive Endocrine Disorders, Diabetes Mellitus Type 2 (Glucose is 257) and Hypothyroidism HEMATOLOGIC: Positive Blood Disorders and Anemia PSYCHO/SOCIAL: Positive Psychiatric Problems, Recreational Drug Use, Bipolar Disorder, Depression, Anxiety and Post Traumatic Stress Disorder OTHER HISTORY: Positive Hospitalization and Blood Transfusions Family History FAMILY HISTORY: Positive Family Cardiac Disorders and Family Surgery Surgical History SURGICAL: Positive Hysterectomy, Tubal Ligation and Section Social History SMOKING STATUS: Never smoker SUBSTANCE USE: marijuana ED Exam General Limitations: Present no limitations General appearance: Present other (Awake, eyes open, diffculty with answering questions, confused, not following directions well) Head Head exam: Present atraumatic Eye Eye exam: Present normal appearance, PERRL and EOMI ENT ENT exam: Present normal exam, normal oropharynx and mucous membranes moist Neck Neck exam: Present normal inspection, full ROM and trachea midline Chest Chest inspection: Present normal inspection and symmetric chest wall rise Respiratory Respiratory exam: Present normal lung sounds bilaterally Cardiovascular Cardiovascular exam: Present regular rate, normal rhythm and normal heart sounds Abdominal Exam Abdominal exam: Present soft and normal bowel sounds Extremities Exam Extremities exam: Present normal inspection and full ROM Back Exam Back exam: Present normal inspection and full ROM Neurological Exam Neurological exam: Present alert and other (Awake, eyes open, diffculty with answering questions, confused, couldnt follow directions well, unable to follow finger or set herself up for coordination testing, moving all extremities ) Skin Skin exam: Present warm, dry, intact and normal color Course Quality Measures none Orders Category Date Time Status Admit to Inpatient Status Routine Admission 11/04/24 13:14 Active Patient Condition Routine Admission 11/04/24 13:13 Ordered Bedside Blood Glucose NOW Care 11/04/24 10:29 Active COVID-19 Screening Questionnaire NOW Care 11/04/24 12:[address] Screening NOW Care 11/04/24 10:[address] Screening X1 Care 11/04/24 10:57 Active Chemical Instrumentation Officer NOW Care 11/04/24 10:29 Active Continuous Pulse Oximetry NOW Care 11/04/24 10:29 Completed Decision to Admit X1 Care 11/04/24 12:04 Active EKG (ED ONLY) *Do not use* NOW Care 11/04/24 10:29 Completed Flu & Pneumonia Vaccine Screen ONCE Care 11/04/24 13:23 Active In and Out Catheter NEEDED Care 11/04/24 10:29 Completed Insert IV NOW Care 11/04/24 10:29 Active MRI Screening NOW Care 11/04/24 11:50 Active NIH Stroke Scale now Care 11/04/24 10:29 Active NPO NOW Care 11/04/24 10:29 Active Neuro Check Q15MIN Care 11/04/24 10:29 Active Neuro Check Q2H Care 11/04/24 13:14 Active Notify provider NEEDED Care 11/04/24 13:13 Active Nurse Swallow Screen x1 Care 11/04/24 10:29 Active Seizure precautions NEEDED Care 11/04/24 13:14 Active Consult to Nephrology Urgent Cons 11/04/24 13:29 Ordered CA echo doppler complete Stat Exams 11/04/24 13:[address] head/brain wo con Stat Exams 11/04/24 10:57 Completed EKG (ED Only) Stat Exams 11/04/24 10:29 Draft MR head/brain wo con Stat Exams 11/04/24 Ordered Alcohol, Blood Medical Stat Lab 11/04/24 10:34 Completed B-Type Natriuretic Peptide Stat Lab 11/04/24 10:34 Completed CBC AM DRAW Lab 11/05/24 05:00 Ordered CBC AM DRAW Lab 11/06/24 05:00 Ordered CBC AM DRAW Lab 11/07/24 05:00 Ordered CBC Stat Lab 11/04/24 10:34 Completed Comprehensive Metabolic Panel Stat Lab 11/04/24 10:34 Completed Drug Screen,Urine Stat Lab 11/04/24 10:50 Completed Lipid Panel AM DRAW Lab 11/05/24 05:00 Ordered Magnesium AM DRAW Lab 11/05/24 05:00 Ordered Magnesium AM DRAW Lab 11/06/24 05:00 Ordered Magnesium AM DRAW Lab 11/07/24 05:00 Ordered Magnesium Stat Lab 11/04/24 10:34 Completed Partial Thromboplastin Time Stat Lab 11/04/24 12:10 Completed Prothrombin Time with INR Stat Lab 11/04/24 12:10 Completed Renal Function Panel Q4H Lab 11/05/24 05:00 Ordered Renal Function Panel Q4H Lab 11/05/24 09:00 Ordered Renal Function Panel Q4H Lab 11/05/24 13:00 Ordered Renal Function Panel Q4H Lab 11/05/24 17:00 Ordered Renal Function Panel Q4H Lab 11/05/24 21:00 Ordered Renal Function Panel Q4H Lab 11/06/24 01:00 Ordered Renal Function Panel Q4H Lab 11/06/24 05:00 Ordered Renal Function Panel Q4H Lab 11/06/24 09:00 Ordered Troponin I Stat Lab 11/04/24 10:34 Completed Urinalysis Stat Lab 11/04/24 10:50 Completed Urine Culture Stat Lab 11/04/24 10:50 Received Venous Blood Gas Stat Lab 11/04/24 10:34 Completed Acetaminophen Tab [Tylenol Tab] Med 11/04/24 13:13 Active 1,000 mg PO Q6H PRN Enoxaparin [Lovenox] Med 11/05/24 09:00 Active 30 mg SC QDAY Famotidine Inj [Pepcid Inj] Med 11/04/24 21:00 Active 20 mg IVP Q12HR Furosemide Inj [Lasix Inj] Med 11/04/24 11:57 Discontinued 40 mg IVP X1 ONE Hydrocortisone Sod Succ Inj [SoluCORTEF Inj] Med 11/04/24 11:57 Discontinued 100 mg IV X1 ONE NALOXONE INJ (Vial) [Narcan Inj (Vial)] Med 11/04/24 10:30 Discontinued 0.4 mg IV X1 ONE Ondansetron Inj [Zofran Inj] Med 11/04/24 10:29 Discontinued 4 mg IVP Q4HR PRN Ondansetron Inj [Zofran Inj] Med 11/04/24 13:23 Active 4 mg IVP Q6H PRN Pamidronate Inj [Aredia Inj] 90 mg Med 11/04/24 12:15 Active Sodium Chloride 0.9% 500 ml [Ns] 500 ml IV X1 Sodium Chloride 0.9% 1000 ml [Ns] 1,000 ml Med 11/04/24 11:57 Discontinued IV 999 mls/hr Sodium Chloride 0.9% 1000 ml [Ns] 1,000 ml Med 11/04/24 10:30 Discontinued IV Q10H Code Status Routine Oth 11/04/24 13:13 Ordered Oxygen Delivery NOW RT 11/04/24 10:29 Active Vital Signs Vital signs: Vital Signs Temperature 98.2 F 11/04/24 10:04 Pulse Rate 99 11/04/24 10:04 Respiratory Rate 18 11/04/24 10:04 Blood Pressure 123/67 11/04/24 10:04 Pulse Oximetry (%) 97 11/04/24 10:04 Altered Mental Status MDM Narrative MDM Narrative:: Ayala Mcdonough am scribing for and in the presence of Dr. Rainey. Patient data External records reviewed:: [facility] previous records (I reviewed ED visit on 07/06/2024 ) Clinical information provided by:: family (son) Social determinants that could affect healthcare access:: none Patient has the following chronic illnesses:: CHF, hypertension, diabetes, hyperlipidemia, COPD, asthma, depression, chronic back pain How is presenting disease/condition affected by chronic disease/condition?: exacerbated by Evaluation data The following diagnostics were reviewed and interpreted by me:: EKG tracing(s) (11/04/2024 @ 10:34 AM. Sinus rhythm, rate 93, no STEMI, DE 148 ms, QRS 110 ms, QT/QTc 262/313 ms. ) Lab and/or radiology exams considered but not ordered:: None Interpretation Summary: Ordering Physician: Ean Rainey MD Date of Service: 11/04/24 Procedure(s): CT head/brain wo con Accession Number(s): [id number] cc: Ean Rainey MD; Scott Lara MD; Josiah Marinelli MD~ Examination: CT brain head without contrast. 2-D sagittal coronal reconstructions Date and time of exam:November 04, 2024 1122 hours INDICATIONS: Onset altered mental status today CTDI: vol (mGy):55.9 DLP: (mGycm):1068 Technique: Multiple CT axial sections of the brain have been obtained, 5 mm slice thickness. Contrast has not been administered. 2-D sagittal, coronal reconstructions have been obtained Low dose protocols were performed. One or more of the following dose reduction techniques were used; automated exposure control, adjustment of the mA and/or KV according to patient size, use of iterative reconstruction technique. Findings: No significant ventricular enlargement. Intra-axial or extra-axial hemorrhage density is not seen. No mass effect or midline shift Basal cisterns are not remarkable. Fourth ventricle is midline. Cranial vault intact. 7 mm calcified mass right frontal convexity Impression: Negative for acute hemorrhage, mass effect or midline shift Suspicious for 7 mm right frontal incidental convexity meningioma If symptoms persist, consider brain MRI follow-up stroke protocol Dictated By: Josiah Marinelli MD Signed By: <Electronically signed by Josiah Marinelli MD in [place]> 11/04/24 1142 Ordering Physician: Xavier Petit MD Date of Service: 11/04/24 Procedure(s): XR abdomen 1V Accession Number(s): [id number] cc: Scott Lara MD; Josiah Marinelli MD; Xavier Petit MD~ Examination: Abdomen AP single view Technique: AP portable supine abdomen, single view Exam date and time: November 04, 2024 1423 hours INDICATIONS: Abdominal distention today. FINDINGS: Large amounts of stool throughout the colon No free air The osseous structures are intact Posterior lumbar fusion lower lumbar spine IMPRESSION: Large amounts of stool throughout the colon Dictated By: Josiah Marinelli MD Signed By: <Electronically signed by Josiah Marinelli MD in [place]> 11/04/24 1440 Medications / Prescriptions Medications or Prescriptions considered but not ordered:: None Medication administrations:: Medication Administration History Acetaminophen (Acetaminophen 325 Mg Tablet) 1,000 mg PO Q6H PRN PRN Reason: Fever >99.9 Stop: 12/04/24 13:12 Enoxaparin Sodium (Enoxaparin Sod Inj 30 Mg/0.3 Ml Syringe) 30 mg SC QDAY KETAN Stop: 11/19/24 08:59 Famotidine (Famotidine Inj 10 Mg/Ml Vial 2 Ml) 20 mg IVP Q12HR KETAN Stop: 12/04/24 20:59 Pamidronate Disodium 90 mg/ (Sodium Chloride) 510 mls @ 85 mls/hr IV X1 ONE Stop: 11/04/24 18:14 Last Admin: 11/04/24 13:54 Dose: 85 mls/hr Documented By: FABIAN Co-signed By: CAITY Sodium Chloride (Ns) 1,000 mls @ 125 mls/hr IV .Q8H [facility] Stop: 12/04/24 14:06 Ondansetron HCl (Ondansetron Inj 2 Mg/Ml Inj 2 Ml) 4 mg IVP Q6H PRN; Protocol PRN Reason: NAUSEA OR VOMITING Stop: 12/04/24 13:22 Discontinued Medications Calcitonin Elysian (Calcitonin, Elysian Synth Inj 1 Unit/0.005 Ml Vial) 400 unit SC X1 ONE Stop: 11/04/24 14:16 Last Admin: 11/04/24 15:02 Dose: 400 unit Documented By: SOL Furosemide (Furosemide Inj 10 Mg/Ml 4ml Vial) 40 mg IVP X1 ONE Stop: 11/04/24 11:58 Last Admin: 11/04/24 12:23 Dose: 40 mg Documented By: FABIAN Hydrocortisone Sodium Succinate (Hydrocortisone Sod Succ Inj 100 Mg Vial) 100 mg IV X1 ONE Stop: 11/04/24 11:58 Last Admin: 11/04/24 12:23 Dose: 100 mg Documented By: FABIAN Sodium Chloride (Ns) 1,000 mls @ 100 mls/hr IV Q10H [facility] Stop: 12/04/24 10:29 Last Infusion: 11/04/24 15:43 Dose: Infused Documented By: Admin: 11/04/24 10:48 Dose: 100 mls/hr Documented By: FABIAN Sodium Chloride (Ns) 1,000 mls @ 999 mls/hr IV .Q1H1M ONE Stop: 11/04/24 12:57 Last Infusion: 11/04/24 13:10 Dose: Infused Documented By: Admin: 11/04/24 12:24 Dose: 999 mls/hr Documented By: CG Sodium Chloride (Ns) 1,000 mls @ 999 mls/hr IV .Q1H1M ONE Stop: 11/04/24 15:09 Last Admin: 11/04/24 15:53 Dose: 999 mls/hr Documented By: FABIAN Naloxone HCl (Naloxone Inj 0.4 Mg/Ml Vial) 0.4 mg IV X1 ONE Stop: 11/04/24 10:31 Last Admin: 11/04/24 10:47 Dose: 0.4 mg Documented By: FABIAN Co-signed By: CAITY Ondansetron HCl (Ondansetron Inj 2 Mg/Ml Inj 2 Ml) 4 mg IVP Q4HR PRN PRN Reason: NAUSEA OR VOMITING Stop: 12/04/24 10:28 Last Admin: 11/04/24 10:47 Dose: 4 mg Documented By: FABIAN See above Consultations Consultation(s) initiated? (list below): Yes Consultation #1 (Physician, Specialty, Details): I spoke with plant wrapper Dr. Morrow. Discussed patients PMHx, HPI, ED course, exam findings, labs, and radiology results. He agrees to accept the patient for admission. Time: 12:00 Diagnosis Most likely diagnosis given after review of the tests above:: Hypercalcemia AMS hyperglycemia SHAY Leukocytosis Admission Indicated Admission indicated?: indicated Admission Request Was there a request for admission?: Yes Admission Attestation Admission request attestation: Discussed case with [] from Hospitalist service regarding admission. Discussed patients ED course, exam findings, labs, and radiology results. The Hospitalist [agrees,declines] to accept the patient for admission. Disposition Plan Disposition Plan: Admit Critical Care Time Critical Care Time Critical Care Time: Yes Total Critical Care Time (min.): 60 Attestation: The high probability of sudden, clinically significant deterioration in the patient's condition required the highest level of my preparedness to intervene urgently. The services I provided to this patient were to treat and/or prevent clinically significant deterioration. Services included the following: chart data review, reviewing nursing notes and/or old charts, documentation time, sec reporting consultant collaboration regarding findings and treatment options, medication orders and management, direct patient care, vital sign assessments and ordering, interpreting and reviewing diagnostic studies and lab tests. Aggregate critical care time includes only time during which I was engaged in work directly related to the patient's care, as described above, whether at bedside or elsewhere in the Emergency Department. It did not include time spent performing other reported procedures or the services of residents, students, nurses or physician assistants. Discharge Plan Plan Patient Disposition: Admit Acute Care w/in Hospital Problem List Clinical Impression: Hypercalcemia, Altered mental status, Hyperglycemia, SHAY (acute kidney injury)
[2024-11-04] MEDS: NALOXONE INJ 0.4 MG/ML VIAL IV (10:47)
[2024-11-04] MEDS: ONDANSETRON INJ 2 MG/ML INJ 2 ML 4 MG IVP (10:47)
[2024-11-04 10:48] LABS: Base Excess, Venous 4 (-3-3); Basophils % (Auto) 0 % (0-2.5); Eosinophils # (Auto) 0.1 Thou/mm3 (0.0-0.5); Eosinophils % (Auto) 1 % (0-10); Hemoglobin 14.4 g/dL (12.0-16.0); Immature Granulocytes % (Auto) 1 % (0-0); Immature Granulocytes Auto 0.06 Thou/mm3 (0.00-0.00); Lymphocytes # (Auto) 1.5 Thou/mm3 (1.0-4.8); Lymphocytes % (Auto) 12 % (10-50); Mean Corpuscular HGB Conc 32.7 g/dl (31.0-37.0); Mean Corpuscular Hemoglobin 30.2 pg (25.0-35.0); Mean Corpuscular Volume 92 fL (80-100); Monocytes # (Auto) 1.5 Thou/mm3 (0.0-0.8); Monocytes % (Auto) 12 % (0-12); Neutrophils % (Auto) 74 % (37-80); Nucleated Red Blood Cell % 0 /100 WBC (0); O2 Saturation, Venous 67 % (96-97); PCO2, Venous 50 mmHg (36-56); PO2, Venous 36 mmHg (15-58); Platelet Count 329 Thou/mm3 (140-440); RDW Standard Deviation 44.9 fL (36.4-46.3); Red Blood Count 4.77 Miln/mm3 (4.00-5.20); White Blood Count 12.1 Thou/mm3 (3.6-11.0); pH, Venous 7.39 (7.33-7.66)
[2024-11-04] MEDS: SODIUM CHLORIDE 0.9% 1000 ML 1,000 ML 100 ML IV (10:48)
--- NOTE | 2024-11-04 10:57 | XR_ITS ---
Examination: CT brain head without contrast. 2-D sagittal coronal reconstructions Date and time of exam:November 04, 2024 1122 hours INDICATIONS: Onset altered mental status today CTDI: vol (mGy):55.9 DLP: (mGycm):1068 Technique: Multiple CT axial sections of the brain have been obtained, 5 mm slice thickness. Contrast has not been administered. 2-D sagittal, coronal reconstructions have been obtained Low dose protocols were performed. One or more of the following dose reduction techniques were used; automated exposure control, adjustment of the mA and/or KV according to patient size, use of iterative reconstruction technique. Findings: No significant ventricular enlargement. Intra-axial or extra-axial hemorrhage density is not seen. No mass effect or midline shift Basal cisterns are not remarkable. Fourth ventricle is midline. Cranial vault intact. 7 mm calcified mass right frontal convexity Impression: Negative for acute hemorrhage, mass effect or midline shift Suspicious for 7 mm right frontal incidental convexity meningioma If symptoms persist, consider brain MRI follow-up stroke protocol
[2024-11-04 11:09] LABS: Alanine Aminotransferase 14 U/L (10-49); Albumin, Serum 4.6 gm/dL (3.5-5.0); Albumin/Globulin Ratio 1.9 (1.2-2.2); Alcohol, Blood Medical < 3.0 mg/dL (0-10.0); Alkaline Phosphatase 92 U/L (46-116); Anion Gap 5 (7-16); Aspartate Amino Transferase 22 U/L (0-34); BUN/Creatinine Ratio 13 Ratio (12-20); Bilirubin,Total 0.3 mg/dL (0.3-1.2); Blood Urea Nitrogen 25 mg/dL (9-23); Carbon Dioxide 30.2 mMol/L (20.0-31.0); Chloride 100 mMol/L (98-107); Creatinine (Component) 1.9 mg/dL (0.6-1.3); Estimated Creatinine Clearance 41.5 mL/min (>60); Globulin 2.4 gm/dL (2.3-3.5); Glucose 305 mg/dL (74-106); Magnesium 2.1 mg/dL (1.6-2.6); Osmolality,Calculated 285 (275-295); Potassium 3.9 mMol/L (3.4-5.1); Sodium 135 mMol/L (136-145); Troponin I < 0.020 ng/mL (0.0-0.045); eGFR 31 See Note
[2024-11-04 11:10] LABS: Calcium 17.3 mg/dL (8.3-10.6); Calcium (Corrected) 17.3 mg/dL (8.5-10.1)
[2024-11-04 11:32] LABS: Collection Type, Urine Catheter
[2024-11-04 11:33] LABS: B-Type Natriuretic Peptide 21 pg/mL (0-100)
[2024-11-04] MEDS: HYDROCORTISONE SOD SUCC INJ 100 MG VIAL IV (12:23)
[2024-11-04] MEDS: FUROSEMIDE INJ 10 MG/ML 4ML VIAL 40 MG IVP (12:23)
[2024-11-04] MEDS: SODIUM CHLORIDE 0.9% 1000 ML 1,000 ML 999 ML IV ×2 (12:24→15:53)
[2024-11-04 12:41] LABS: Amphetamine/Methamp Scrn,U Negative (Negative); Barbiturate Screen,Urine Negative (Negative); Benzodiazepines Screen,Urine Negative (Negative); Benzoylecgonine Screen, Ur Negative (Negative); Fentanyl Screen,Urine Positive (Negative); Opiate Screen,Urine Negative (Negative); THC Screen,Urine Positive (Negative)
[2024-11-04 12:48] LABS: Bilirubin,Urine Negative (Negative); Blood,Urine Negative (Negative); Clarity,Urine Clear (Clear/Hazy); Color,Urine Lt-Yellow (Lt Yel-Yel); Glucose, Urine 1+ (Negative); Hyaline Casts,Urine < 1 /hpf (0-1); Ketones,Urine Negative (Negative); Leukocyte Esterase,Urine Negative (Negative); Nitrite,Urine Negative (Negative); PH,Urine 5.5 (5.0-7.0); Protein,Urine Negative (Neg - Trace); RBC,Urine 2 /hpf (0-3); Specific Gravity,Urine 1.016 (1.001-1.035); Squamous Epithelial Cell,Urine 1 /hpf (0-5); Transitional Epi Cells,Urine < 1 /hpf (0-5); Urobilinogen,Urine Negative mg/dL (0.0-1.0); WBC,Urine 5 /hpf (0-5)
[2024-11-04 12:49] LABS: Partial Thromboplastin Time 20.4 Seconds (22.0-36.0); Prothrombin Time 10.7 Seconds (9.0-12.2)
--- NOTE | 2024-11-04 14:06 | XR_ITS ---
Examination: Abdomen AP single view Technique: AP portable supine abdomen, single view Exam date and time: November 04, 2024 1423 hours INDICATIONS: Abdominal distention today. FINDINGS: Large amounts of stool throughout the colon No free air The osseous structures are intact Posterior lumbar fusion lower lumbar spine IMPRESSION: Large amounts of stool throughout the colon
--- NOTE | 2024-11-04 14:10 | PD.RESCONSUL ---
HPI Data of Consult Consult date: 11/04/24 Requesting Physician: Xavier Peitt MD Admitting Provider: Xavier Petit MD Attending Provider: Xavier Petit MD Primary Care Provider: Scott Lara MD Consult Narrative Reason for consult: Hypercalcemia History of present illness: Limited HPI due to mental status, most of the information gathered from EMR chart review and patient's son Michael. The patient is a 53-year-old female with a past medical history of bipolar disorder, depression, PTSD, and CHF, COPD, hypertension, hyperlipidemia, asthma and diabetes mellitus who was brought into the emergency room due to chief complaint of altered mental status and aphasia. Per son, patient recently started Ozempic a couple weeks ago, and has been feeling sick to her stomach since then. Feels nauseous and has not been able to eat solid food, but states she is able to drink adequate fluids. Reported she has had diarrhea for most of the last month, after she ran out of her opioid medications and fentanyl patch, but since refilling her prescriptions, diarrhea has resolved. 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 Byrne. Per son, patient has no past medical history of cancer, unsure about Gold Au 198 allergy. In the ER, initial vitals blood pressure 123/67, pulse 99/min, Tmax 90 8.2F, saturating 97% on 4 L nasal cannula O2, initial labs pertinent for mild leukocytosis WBC 12.1, hemoglobin 14.4, platelets 329, CMP shows marked hypercalcemia and SHAY. Sodium 135, potassium 3.9, chloride 100, carbon oxide 30.2, BUN 25, creatinine 1.9, glucose 305, calcium corrected 17.3, magnesium 2.1. U tox positive for fentanyl and marijuana, urinalysis unremarkable for UTI. CT head shows suspicion for 7 mm right frontal meningioma, recommended MRI for follow-up. EKG shows sinus rhythm and nonspecific T wave abnormality, possible right ventricular hypertrophy. Past medical and surgical history: As noted above cc:: cc: Xavier Petit MD Review of Systems Review of Systems Narrative Review of Systems: Limited due to her altered mental status. Son at bedside. Denies any chest pain. Past Medical History Past Medical History NEUROLOGIC: Positive Neurological Disorders, Seizures, Spina Bifida, Migraine and Spinal Cord Injury CARDIAC: Positive Cardiac Disorders, Myocardial Infarction, Cardiac Arrhythmia, Angina, Hypercholesterolemia, Congestive Heart Failure, Edema and Hypertension RESPIRATORY: Positive Respiratory Disorders, Chronic Obstructive Pulmonary Disease (COPD), Asthma and Pneumonia GASTROINTESTINAL: Positive Gastrointestinal Disorders, Pancreatitis, Hiatal Hernia and Obesity; Negative Hepatitis GENITOURINARY: Positive Renal Disease; Negative Genitourinary Disorders REPRODUCTIVE: Positive Previous Pregnancies MUSCULOSKELETAL: Positive Musculoskeletal Disorders, Arthritis, Fibromyalgia and Fractures ENT: Positive Cataracts ENDOCRINE: Positive Endocrine Disorders, Diabetes Mellitus Type 2 (Glucose is 257) and Hypothyroidism; Negative Diabetes Mellitus Type 1 HEMATOLOGIC: Positive Blood Disorders and Anemia; Negative Sickle Cell Disease PSYCHO/SOCIAL: Positive Psychiatric Problems, Recreational Drug Use, Bipolar Disorder, Depression, Anxiety and Post Traumatic Stress Disorder; Negative Self-Mutilation or Depression OTHER HISTORY: Positive Hospitalization and Blood Transfusions; Negative Autoimmune Disease, Shingles, Falls, Blood Transfusion Reaction, Anesthesia Reactions, Chemotherapy, Radiation Therapy, MRSA, Chicken Pox, Measles, Mumps or Cancer Family History FAMILY HISTORY: Positive Family Cardiac Disorders and Family Surgery; Negative Family Psychiatric Problems, Family Respiratory Disorders, Family Gastrointestinal Problems, Family Cancer or Family Anesthesia Reaction Surgical History SURGICAL: Positive Hysterectomy, Tubal Ligation and Section; Negative Cardiac Surgery, Endocrine Surgery or Abdominal Surgery Social History SMOKING STATUS: Never smoker SUBSTANCE USE: marijuana Exam Vital Signs Temp Pulse Resp BP Pulse Ox O2 Del Method O2 Flow Rate 97.9 F 89 20 127/98 H 92 L Nasal Cannula 3 11/04/24 14:00 11/04/24 14:00 11/04/24 14:00 11/04/24 14:00 11/04/24 14:00 11/04/24 14:11/04/24 14:00 Narrative Exam General: Alert but oriented only in person, confused speech, able to move all 4 extremities. Currently seen in the emergency department. Skin: Intact, freckles all over, no cyanosis or edema noted. HEENT: Atraumatic/normocephalic, JULIA, neck supple Heart: RRR, S1 and S2 without clicks or murmurs Lungs: Clear on auscultation bilaterally, no difficulty breathing Abdomen: Mild abdominal tenderness right and left lower quadrants. Bowel sounds present . Vascular: Peripheral pulses palpable Neuro: No focal neurological deficits noted. Results Labs 11/05/24 04:50 11/05/24 08:45 Labs: Short CBC 11/04/24 Range/Units 10:34 WBC 12.1 H (3.6-11.0) Thou/mm3 Hgb 14.4 (12.0-16.0) g/dL Hct 44.0 (36.0-46.0) % Plt Count 329 (140-440) Thou/mm3 BMP 11/04/24 10:34 Sodium 135 L Potassium 3.9 Chloride 100 Carbon Dioxide 30.2 BUN 25 H Creatinine 1.9 H Glucose 305 H Calcium 17.3 H* Cardiac Enzymes 11/04/24 Range/Units 10:34 Troponin I < 0.020 (0.0-0.045) ng/mL Liver Function 11/04/24 Range/Units 10:34 Total Bilirubin 0.3 (0.3-1.2) mg/dL AST 22 (0-34) U/L ALT 14 (10-49) U/L Alkaline Phosphatase 92 (46-116) U/L Albumin 4.6 (3.5-5.0) gm/dL Urine 11/04/24 Range/Units 10:50 Urine Color Lt-Yellow (Lt Yel-Yel) Urine Clarity Clear (Clear/Hazy) Urine pH 5.5 (5.0-7.0) Ur Specific [place] 1.016 (1.001-1.035) Urine Protein Negative (Neg - Trace) Urine Glucose (UA) 1+ A (Negative) ABG Interpretation ABG results: 11/04/24 10:34 VBG pH 7.39 VBG pCO2 50 VBG pO2 36 VBG Base Excess 4 H Quality Measures Quality Measures VTE prophylaxis Medications Home Medications and Allergies Home Medications ?Medication ?Instructions ?Recorded ?Confirmed ?Type lithium carbonate 300 mg 300 mg PO BID ##0 04/22/17 11/05/24 History tablet,extended release montelukast 10 mg tablet 10 mg PO QDAY #0 tabs 05/31/17 11/05/24 History (Singulair) dexlansoprazole 60 mg 60 mg PO DAILY 11/18/20 11/05/24 History capsule,biphase delayed release (Dexilant) pregabalin 75 mg capsule 75 mg PO TID PRN Pain 11/18/20 11/05/24 History risperidone 3 mg tablet 6 mg PO HS 11/18/20 11/05/24 History atorvastatin 40 mg tablet 40 mg PO DAILY 12/08/21 11/05/24 History ropinirole 5 mg tablet 5 mg PO HS 12/08/21 11/05/24 History tizanidine 4 mg tablet 4 mg PO BID 12/08/21 11/05/24 History levothyroxine 50 mcg tablet 50 mcg PO DAILY 12/09/21 11/05/24 History naloxegol 25 mg tablet (Movantik) 25 mg PO DAILY 12/09/21 11/05/24 History paroxetine HCl 40 mg tablet 40 mg PO HS 05/13/22 11/05/24 History buspirone 15 mg tablet 15 mg PO TID 06/21/22 11/05/24 History docusate sodium 100 mg capsule 100 mg PO TID 06/21/22 11/05/24 History insulin glargine 100 unit/mL (3 36 unit subcut QPM 06/21/22 11/05/24 History mL) subcutaneous pen (Basaglar KwikPen U-100 Insulin) lamotrigine 100 mg tablet 150 mg PO BID 06/21/22 11/05/24 History metformin 500 mg tablet 500 mg PO BID 06/21/22 11/05/24 History quetiapine 300 mg tablet 300 mg PO HS 06/21/22 11/05/24 History trazodone 150 mg tablet 375 mg PO HS 06/21/22 11/05/24 History amitriptyline 50 mg tablet 50 mg PO HS 11/05/24 11/05/24 History calcium 600 mg (as 1 tab PO BID 11/05/24 11/05/24 History carbonate)-vitamin D3 10 mcg (400 unit) tablet clopidogrel 75 mg tablet 75 mg PO DAILY 11/05/24 11/05/24 History dicyclomine 20 mg tablet 20 mg PO TIDACHS 11/05/24 11/05/24 History diphenhydramine HCl 50 mg capsule 50 mg PO HS PRN allergic reaction 11/05/24 11/05/24 History (Banophen) famotidine 20 mg tablet 20 mg PO HS 11/05/24 11/05/24 History fentanyl 50 mcg/hr transdermal 50 mcg topical 3XD PRN back pain 11/05/24 11/05/24 History patch ferrous sulfate 325 mg (65 mg 325 mg PO BID 11/05/24 11/05/24 History iron) tablet (FeroSul) furosemide 20 mg tablet 20 mg PO QDAY 11/05/24 11/05/24 History insulin aspart U-100 100 unit/mL subcut 11/05/24 History (3 mL) subcutaneous pen insulin glargine 100 unit/mL (3 36 unit subcut QPM 11/05/24 11/05/24 History mL) subcutaneous pen (Lantus Solostar U-100 Insulin) lamotrigine 150 mg tablet 150 mg PO HS 11/05/24 11/05/24 History losartan 100 mg tablet 100 mg PO DAILY 11/05/24 11/05/24 History lubiprostone 24 mcg capsule 24 mcg PO BID 11/05/24 11/05/24 History mirtazapine 7.5 mg tablet 7.5 mg PO HS 11/05/24 11/05/24 History potassium chloride 10 mEq 10 meq PO HS 11/05/24 11/05/24 History capsule,extended release quetiapine 200 mg tablet 200 mg PO HS 11/05/24 11/05/24 History semaglutide 0.25 mg or 0.5 mg (2 0.25 mg subcut QWEEK 11/05/24 11/05/24 History mg/1.5 mL) subcutaneous pen injector (Ozempic) Allergies Allergy/AdvReac Type Severity Reaction Status Date / Time chocolate flavor Allergy Severe BLISTERS Verified 11/04/24 10:00 IN MOUTH NSAIDS (Non-Steroidal Allergy Severe Nausea Verified 11/04/24 10:00 Anti-Inflamma gold Au 198 Allergy Intermediate RASH Verified 11/04/24 10:00 ibuprofen Allergy Intermediate NAUSEA AND Verified 11/04/24 10:00 VOMITING promethazine Allergy Mild RASH/SOB Verified 11/04/24 10:00 ketorolac AdvReac Unknown NAUSEA Verified 11/04/24 10:00 VOMITING, STOMACH UPSET Visit Medications Acetaminophen (Acetaminophen 325 Mg Tablet) 1,000 mg PO Q6H PRN PRN Reason: Fever >99.9 Stop: 12/04/24 13:12 Calcitonin [place] (Calcitonin, [place] Synth Inj 1 Unit/0.005 Ml Vial) 20 unit SC X1 ONE Stop: 11/04/24 14:08 Enoxaparin Sodium (Enoxaparin Sod Inj 30 Mg/0.3 Ml Syringe) 30 mg SC QDAY KETAN Stop: 11/19/24 08:59 Famotidine (Famotidine Inj 10 Mg/Ml Vial 2 Ml) 20 mg IVP Q12HR [facility] Stop: 12/04/24 20:59 Pamidronate Disodium 90 mg/ (Sodium Chloride) 510 mls @ 85 mls/hr IV X1 ONE Stop: 11/04/24 18:14 Last Admin: 11/04/24 13:54 Dose: 85 mls/hr Sodium Chloride (Ns) 1,000 mls @ 125 mls/hr IV .Q8H KETAN Stop: 12/04/24 14:06 Sodium Chloride (Ns) 1,000 mls @ 999 mls/hr IV .Q1H1M ONE Stop: 11/04/24 15:09 Ondansetron HCl (Ondansetron Inj 2 Mg/Ml Inj 2 Ml) 4 mg IVP Q6H PRN; Protocol PRN Reason: NAUSEA OR VOMITING Stop: 12/04/24 13:22 Discontinued Medications Furosemide (Furosemide Inj 10 Mg/Ml 4ml Vial) 40 mg IVP X1 ONE Stop: 11/04/24 11:58 Last Admin: 11/04/24 12:23 Dose: 40 mg Hydrocortisone Sodium Succinate (Hydrocortisone Sod Succ Inj 100 Mg Vial) 100 mg IV X1 ONE Stop: 11/04/24 11:58 Last Admin: 11/04/24 12:23 Dose: 100 mg Sodium Chloride (Ns) 1,000 mls @ 100 mls/hr IV Q10H [facility] Stop: 12/04/24 10:29 Last Admin: 11/04/24 10:48 Dose: 100 mls/hr Sodium Chloride (Ns) 1,000 mls @ 999 mls/hr IV .Q1H1M ONE Stop: 11/04/24 12:57 Last Infusion: 11/04/24 13:10 Dose: Infused Naloxone HCl (Naloxone Inj 0.4 Mg/Ml Vial) 0.4 mg IV X1 ONE Stop: 11/04/24 10:31 Last Admin: 11/04/24 10:47 Dose: 0.4 mg Ondansetron HCl (Ondansetron Inj 2 Mg/Ml Inj 2 Ml) 4 mg IVP Q4HR PRN PRN Reason: NAUSEA OR VOMITING Stop: 12/04/24 10:28 Last Admin: 11/04/24 10:47 Dose: 4 mg Assessment & Plan Plan #Hypocalcemia?severe #Acute kidney injury Patient takes lithium, possible lithium induced hypercalcemia. Also takes vitamin D supplements. In the ED patient received 1 dose of pamidronate, IV furosemide 40 mg and 1 L IV fluid bolus ? Serum PTH levels ? Urine calcium, urine creatinine ? Serum vitamin D levels ? Aggressive IV fluids and strict input output ? Calcitonin 4 mcg/kg, SQ twice daily every 48 hours, pharmacy to dose #Concern for meningioma CT head shows 7 mm meningioma, recommended MRI with stroke protocol. ? Follow MRI findings #Abdominal pain Possibly related to hypercalcemia, x-ray abdomen showed large amount of stool throughout colon. ? Bowel regimen # History of psychiatric disorders, bipolar disorder, depression, PTSD ? Follow lithium levels ? Avoid nephrotoxic medications # History of asthma ?Management per primary team Plan of care discussed with attending Dr. Bridget Corona PGY 2 Attending Provider Attestation/Addendum Patient seen and examined with resident physician Dr. Corona. Note reviewed, agree with findings and recommendations. Patient with altered mental status, SHAY, hypercalcemia. Agree with continuing on IV fluids. No need for emergency dialysis. Spoke to son. Patient on multiple psychiatric medications. Thank you Dr. Morrow for allowing me to participate in the care of Ms. Lawrence
[2024-11-04 14:59] LABS: Parathyroid Hormone Intact 16.5 pg/ml (18.5-88.0)
[2024-11-04] MEDS: CALCITONIN, SALMON SYNTH INJ 1 UNIT/0.005 ML VIAL 400 UNIT SC (15:02)
[2024-11-04 15:04] LABS: Phosphorous 3.2 mg/dL (2.4-5.1)
[2024-11-04 15:04] LABS: Vitamin D 25 Hydroxy Total 29.1 ng/mL (7.3-40.2)
[2024-11-04 16:04] LABS: Calcium, Random Urine 30 mg/dL (2-18); Chloride,Urine Random < 20.0 mMol/L (55.0-125.0); Creatinine,Random Urine 97 mg/dL (30-125); Potassium,Urine Random 36 mMol/L (12-62); Sodium,Urine Random < 15.0 mMol/L (20.0-110.0)
--- NOTE | 2024-11-04 17:18 | ESHP_ITS ---
<Statement entered by Miguel A Morrow MD - 11/05/24 09:05> TOTAL CC TIME: 65 MIN I saw and evaluated the patient. I reviewed the resident?s note and agree with findings and plan as documented in the resident?s note. Upon my evaluation, this patient had a high probability of imminent or life- threatening deterioration due to severe hypercalcemia, which required my direct attention, intervention, and personal management. This time is exclusive of time spent on procedures, which are documented separately if performed. We suspect the severe hypercalcemia is largely due to Ingestion of calcium bicarbonate. However she does have mild elevations of calcium at baseline and outpatient hypercalcemia workup would be appropriate once her current severe hypercalcemia has resolved if her calcium does not go down as anticipated inpatient hypercalcemia workup may be required for other primary and secondary causes. Her slurred speech may be multifactorial due to home medications and hypercalcemia. She has symmetric motor exam findings with generalized weakness and we do not think acute CVA is on the differential. There was an incidental calcified 7 mm possible meningioma identified in the right frontal lobe on CT. Outpatient neuro follow-up was recommended as well Documentation for date of: 11/04/24 HPI History of Present Illness History of present illness: Chief complaint: Altered mentation HPI: Ms. Lawrence is a 53-year-old female who was brought in by family for change in mentation that started on Monday. Patient was noted to have slurred speech, which progressed to difficulty finding words and worsening confusion over the last 24 hours. As per son present at bedside, patient has never had the symptoms in the past. She is ambulatory at baseline, however has not left the bed since Monday. He states that that she also complains of epigastric discomfort that started about 48 hours ago, with intermittent nausea but no episodes of vomiting. She does have history of constipation, and as per son has not had a bowel movement over the last 4 days. Per son, she is fairly compliant with her medications, recently saw her sand control worker Dr. Byrne who recommended possible discontinuation of her antihypertensives due to low blood pressure. Patient denies any recent infections, travels or other systemic symptoms at this time. She remembered her name, date of tenderness her son at bedside, however was not oriented to place. In the ED, vitals showed blood pressure 159/84, HR 90s oxygen saturations 92-96% on 2 L oxygen via nasal cannula. On imaging, head CT was remarkable for 7 mm calcified right frontal meningioma. EKG shows sinus rhythm and nonspecific T wave abnormality, possible right ventricular hypertrophy. X-ray of the abdomen showed abundant stool throughout the colon. Initial body workup remarkable for leukocytosis WBC 12.1, SHAY: creatinine 1.9 and GFR 31 and severe hypercalcemia 17.3 corrected calcium. Parathyroid hormone was low at 16.5. Urinalysis fairly within normal limits. Urine lytes showed elevated calcium at 30 (normal 2?18). Patient was given 1 L IVF bolus in the ED and pamidronate x 1. Patient was admitted to the ICU for close monitoring and management of severe hypercalcemia causing risk of cardiac and neurological dysfunction. Nephrology consulted for SHAY and electrolyte normalities, pending recommendations. Past medical history: - Primary hypertension - Type 2 insulin-dependent diabetes mellitus - Chronic constipation - COPD/chronic smoker - Chronic back pain on fentanyl patch and opioids - Restless leg syndrome/fibromyalgia Past surgical history: s/p spinal fusion for lumbar stenosis Allergies: Chocolate -hives Social history: Tobacco?Use:?History of smoking > 40 pack years, quit 5 years ago ETOH?Use:?Denies Drug?Note:?Marijuana for pain Social?History?Note:?Lives?at home with son Family history: Unsure. Has not remained in touch with her family Review of Systems Review of Systems Narrative Review of Systems: GENERAL: Denies fevers/chills, diaphoresis. Confused HEENT: Denies headache or visual/hearing changes. Denies nasal discharge. NEURO: Denies unusual weakness, has difficulty speaking. CARDIO: Denies chest pain, palpitations. PULM: Denies SOB, cough, wheezing. GI: Epigastric abdominal pain, no N/V, no C/D. Reports having BMs URO: Denies burning/itching/pain/urinary changes. ACADEMIC ADVISER: Denies menstrual changes, hot flashes. MSK/EXT/SKIN: Denies skeletal/muscle pain, changes in upper or lower extremities, itchiness, superficial skin changes. PSYCH: Cooperative, pleasant mood & affect. The rest of the review of systems is otherwise negative. Exam Vital Signs Temp Pulse Resp BP Pulse Ox O2 Del Method O2 Flow Rate 98.2 F 97 20 125/97 H 92 L Nasal Cannula 3 11/04/24 16:11/04/24 16:00 11/04/24 16:00 11/04/24 16:00 11/04/24 16:00 11/04/24 16:00 11/04/24 16:00 Narrative Exam Constitutional Alert, oriented x2 to time and person. Obese HEENT Vision grossly intact, but unable to track with eyes. Patent nares. Trachea midline. Expressive aphasia Respiratory Chest normal on inspection and clear to auscultation bilaterally. 2 L oxygen via nasal cannula, sats 94-95% Cardiovascular S1 and S2 audible, RRR. No murmurs or carotid bruit. No gross JVD. Abdominal Soft and BS + ; distended, diffusely tender to palpation. Genitourinary No bladder tenderness, no flank pain. Normal to palpation. Musculoskeletal Extremities tone within normal limits. No LE edema. Neurological CN II - XII grossly intact. Extremity motor 5/5 and sensation grossly intact. G CS 13 . Normal reflexes Skin Warm, dry and intact. No apparent lesions. Results: Labs 11/04/24 10:34 11/04/24 17:19 Labs: Short CBC 11/04/24 Range/Units 10:34 WBC 12.1 H (3.6-11.0) Thou/mm3 Hgb 14.4 (12.0-16.0) g/dL Hct 44.0 (36.0-46.0) % Plt Count 329 (140-440) Thou/mm3 BMP 11/04/24 10:34 Sodium 135 L Potassium 3.9 Chloride 100 Carbon Dioxide 30.2 BUN 25 H Creatinine 1.9 H Glucose 305 H Calcium 17.3 H* Cardiac Enzymes 11/04/24 Range/Units 10:34 Troponin I < 0.020 (0.0-0.045) ng/mL Liver Function 11/04/24 Range/Units 10:34 Total Bilirubin 0.3 (0.3-1.2) mg/dL AST 22 (0-34) U/L ALT 14 (10-49) U/L Alkaline Phosphatase 92 (46-116) U/L Albumin 4.6 (3.5-5.0) gm/dL Urine 11/04/24 Range/Units 10:50 Urine Color Lt-Yellow (Lt Yel-Yel) Urine Clarity Clear (Clear/Hazy) Urine pH 5.5 (5.0-7.0) Ur Specific [place] 1.016 (1.001-1.035) Urine Protein Negative (Neg - Trace) Urine Glucose (UA) 1+ A (Negative) ABG Interpretation ABG results: 11/04/24 10:34 VBG pH 7.39 VBG pCO2 50 VBG pO2 36 VBG Base Excess 4 H Quality Measures Quality Measures none Medications Home Medications and Allergies Home Medications ?Medication ?Instructions ?Recorded ?Confirmed ?Type lithium carbonate 300 mg 300 mg PO BID ##0 04/22/17 0 11/14/22 History tablet,extended release montelukast 10 mg tablet 10 mg PO QDAY #0 tabs 11/14/22 History (Singulair) dexlansoprazole 60 mg 60 mg PO DAILY 11/18/2010/21 History capsule,biphase delayed release (Dexilant) pregabalin 75 mg capsule 75 mg PO TID PRN Pain 11/14/22 History risperidone 3 mg tablet 6 mg PO HS 11/18/20 11/14/22 History atorvastatin 40 mg tablet 40 mg PO DAILY 12/08/2110/21 History ropinirole 5 mg tablet 5 mg PO HS 12/08/21 11/14/22 History tizanidine 4 mg tablet 4 mg PO BID 12/08/21 3 History levothyroxine 50 mcg tablet 50 mcg PO DAILY 12/09/21 0 11/14/22 History naloxegol 25 mg tablet (Movantik) 25 mg PO DAILY 12/0911/14/22 History paroxetine HCl 40 mg tablet 40 mg PO HS 05/13/2211/14 History buspirone 15 mg tablet 15 mg PO TID 06/21/22 History docusate sodium 100 mg capsule 100 mg PO TID 06/21/22 11/14/22 History insulin glargine 100 unit/mL (3 36 unit subcut QPM 11/14/22 History mL) subcutaneous pen (Joshuaaglar JamarPen U-100 Insulin) lamotrigine 100 mg tablet 150 mg PO BID 06/21/2211/14 History metformin 500 mg tablet 500 mg PO BID 06/21/2211/14 History quetiapine 300 mg tablet 300 mg PO HS 06/21/22 History trazodone 150 mg tablet 375 mg PO HS 06/21/22 History Allergies Allergy/AdvReac Type Severity Reaction Status Date / Time chocolate flavor Allergy Severe BLISTERS Verified 11/04/24 10:00 IN MOUTH NSAIDS (Non-Steroidal Allergy Severe Nausea Verified 11/04/24 10:00 Anti-Inflamma gold Au 198 Allergy Intermediate RASH Verified 11/04/24 10:00 ibuprofen Allergy Intermediate NAUSEA AND Verified 11/04/24 10:00 VOMITING promethazine Allergy Mild RASH/SOB Verified 11/04/24 10:00 ketorolac AdvReac Unknown NAUSEA Verified 11/04/24 10:00 VOMITING, STOMACH UPSET Visit Medications Acetaminophen (Acetaminophen 325 Mg Tablet) 1,000 mg PO Q6H PRN PRN Reason: Fever >99.9 Stop: 12/04/24 13:12 Dextrose (Dextrose 50%-Water Inj 50 Ml Syringe) 50 ml IV Q15MIN PRN PRN Reason: BG <50 OR BG <70 & pt unresponsive Stop: 12/04/24 17:13 Enoxaparin Sodium (Enoxaparin Sod Inj 30 Mg/0.3 Ml Syringe) 30 mg SC QDAY KETAN Stop: 11/19/24 08:59 Famotidine (Famotidine Inj 10 Mg/Ml Vial 2 Ml) 20 mg IVP Q12HR [facility] Stop: 12/04/24 20:59 Glucagon (Glucagon Inj 1 Mg Vial) 1 mg IM Q15MIN PRN PRN Reason: BG <70, and no IV access Pamidronate Disodium 90 mg/ (Sodium Chloride) 510 mls @ 85 mls/hr IV X1 ONE Stop: 11/04/24 18:14 Last Admin: 11/04/24 13:54 Dose: 85 mls/hr Sodium Chloride (Ns) 1,000 mls @ 125 mls/hr IV .Q8H KETAN Stop: 12/04/24 14:06 Insulin Human Lispro (Insulin Lispro (Admelog) 1 Unit/0.01 Ml Unit) 0 unit SC AC KETAN; Protocol Stop: 12/05/24 07:29 Ondansetron HCl (Ondansetron Inj 2 Mg/Ml Inj 2 Ml) 4 mg IVP Q6H PRN; Protocol PRN Reason: NAUSEA OR VOMITING Stop: 12/04/24 13:22 Discontinued Medications Calcitonin [place] (Calcitonin, [place] Synth Inj 1 Unit/0.005 Ml Vial) 400 unit SC X1 ONE Stop: 11/04/24 14:16 Last Admin: 11/04/24 15:02 Dose: 400 unit Furosemide (Furosemide Inj 10 Mg/Ml 4ml Vial) 40 mg IVP X1 ONE Stop: 11/04/24 11:58 Last Admin: 11/04/24 12:23 Dose: 40 mg Hydrocortisone Sodium Succinate (Hydrocortisone Sod Succ Inj 100 Mg Vial) 100 mg IV X1 ONE Stop: 11/04/24 11:58 Last Admin: 11/04/24 12:23 Dose: 100 mg Sodium Chloride (Ns) 1,000 mls @ 100 mls/hr IV Q10H KETAN Stop: 12/04/24 10:29 Last Infusion: 11/04/24 15:43 Dose: Infused Sodium Chloride (Ns) 1,000 mls @ 999 mls/hr IV .Q1H1M ONE Stop: 11/04/24 12:57 Last Infusion: 11/04/24 13:10 Dose: Infused Sodium Chloride (Ns) 1,000 mls @ 999 mls/hr IV .Q1H1M ONE Stop: 11/04/24 15:09 Last Admin: 11/04/24 15:53 Dose: 999 mls/hr Naloxone HCl (Naloxone Inj 0.4 Mg/Ml Vial) 0.4 mg IV X1 ONE Stop: 11/04/24 10:31 Last Admin: 11/04/24 10:47 Dose: 0.4 mg Ondansetron HCl (Ondansetron Inj 2 Mg/Ml Inj 2 Ml) 4 mg IVP Q4HR PRN PRN Reason: NAUSEA OR VOMITING Stop: 12/04/24 10:28 Last Admin: 11/04/24 10:47 Dose: 4 mg Polyethylene Glycol (Polyethylene Glycol 17 Gm Packet) 17 gm PO X1 ONE Stop: 11/04/24 17:03 Assessment & Plan Plan Cousinstephany is a 53-year-old female who was brought in by family for change in mentation. Patient was admitted to the ICU for close monitoring and management of severe hypercalcemia causing risk of cardiac and neurological dysfunction. NEURO Acute metabolic encephalopathy Right frontal lobe meningioma Dx: - Brought in by son for altered mentation the started on 11/01/2024, which progressed to difficulty finding words and worsening confusion over the last 24 hours. As per son present at bedside, patient has never had the symptoms in the past. - Head CT : 7 mm calcified right frontal meningioma. - EKG shows sinus rhythm and nonspecific T wave abnormality, possible right ventricular hypertrophy. Rx: - Continue to monitor - MRIB ordered by ED, will follow up results - Speech evaluation ordered - May consult Neurology is mentation continues to get worse Chronic back pain Hx of lumbar spine fusion Dx: - Hx of chronic opiod use both oral and fentanyl patch for back pain - Patient had lumbar spine fusion performed a few years ago, is ambulatory w/o assistance at baseline. - Medication use hx: ropinirole, quetiapine, pregabalin, paroxetine, risperidone at home. Rx: - Lidocaine pain patch ordered - Will hold all opiods in the setting of encephalopathy and constipation - Follow up med rec to evaluate potential iatrogenic side effects CVS No active problems. PULM No active problems. Hx of COPD Hx of >40 pk years of smoking GI/Hep Abdominal pain Constipation 2/2 chronic opioid use Dx: - Hx of chronic opid use both oral and fentanyl patch for back pain - Abdo X-ray of the abdomen showed abundant stool throughout the colon. - On Calcium and Vit D supplements twice a day + also takes (TUMS) Calcium Carb frequently Rx: - Miralax x1 ordered - Pending swallow eval - Mineral oil enema x1 also ordered as significant back up - Will give Movantik if no BM recorded in the next 4-6 hours RENAL SHAY , likely prerenal Dx: - SHAY: creatinine 1.9 and GFR 31 - Baseline Cr 0.9 and GFR >60 Rx: - Patient was given 1 L IVF bolus in the ED - On maintenance IVF : NS @ 125 cc/h - Avoid LR as it may contain calcium - Renal panel q4H, closely monitor Severe hypercalcemia Dx: - Ca: 17.3 corrected calcium --> 13.8 - Parathyroid hormone : (low) 16.5. - Urinalysis fairly within normal limits. - Urine lytes showed elevated calcium at 30 (normal 2?18). - Patient takes Calcium and Vit D supplements twice a day + also takes (TUMS) Calcium Carb frequently - Other meds: ropinirole, quetiapine, pregabalin, paroxetine, risperidone at home. Rx: - Nephrology consulted, appreciate recommendations. - Was given pamidronate x 1 in ED + Calcitonin 400IU x 1 ordered - On maintenance IVF. Avoid LR as it may contain calcium - Likely medication induced. Possible differential can be cancer, will ask lab for PTHrP testing. - May benefit from tumor marker testing or Bloom CT - Will wait for med rec to be completed to evaluate potential causes of hypercalcemia - Renal panel q4H, will closely monitor HEME/ONC Leukocytosis Dx: leukocytosis WBC 12.1 Rx: - Likely reactive, UA is clean - Will order CXR for further evaluation. - Patient is afebrile for now. Will monitor ENDO T2 IDDM Dx: Insulin dependant. Home insulin: 36 units glargine, SSI lispro AC Rx: - Sw hold elevated allow evaluation ordered - Will start dysphagia 1 low-carb diet for now. Will avoid dairy, due to hypercalcemia - Started normal insulin sliding scale with Accu-Checks - Hypoglycemia protocol in place - HbA1c ordered for a.m. draw ID No active problems. MSK/DERM No active problems. ICU Health maintenance: Dispo: Admit to ICU for acute encephalopathy and severe hypercalcemia Diet: Low carb consistent dysphagia 1 DVT ppx: Enoxaparin 30mg SC daily GI ppx: Famotidine 20 mg every 12 IV lines: 2 pIV Code status: FULL CODE Plan of care discussed with contracting support specialist Dr Morrow, Xavier Petit MD PGY 2 This document was compiled using speech recognition software. Grammatical errors can be an occasional consequence of this system due to software limitations.
[2024-11-04 17:57] LABS: Albumin, Serum 4.2 gm/dL (3.5-5.0); Anion Gap 7 (7-16); BUN/Creatinine Ratio 10 Ratio (12-20); Blood Urea Nitrogen 17 mg/dL (9-23); Carbon Dioxide 25.6 mMol/L (20.0-31.0); Chloride 104 mMol/L (98-107); Creatinine (Component) 1.7 mg/dL (0.6-1.3); Estimated Creatinine Clearance 46.4 mL/min (>60); Glucose 346 mg/dL (74-106); Osmolality,Calculated 289 (275-295); Phosphorous 3.4 mg/dL (2.4-5.1); Potassium 3.9 mMol/L (3.4-5.1); Sodium 137 mMol/L (136-145); eGFR 36 See Note
[2024-11-04 17:59] LABS: Calcium 13.8 mg/dL (8.3-10.6)
[2024-11-04 18:00] LABS: Calcium (Corrected) 13.8 mg/dL (8.5-10.1)
--- NOTE | 2024-11-04 18:10 | XR_ITS ---
Examination: AP chest single view TECHNIQUE: AP portable semiupright chest single view Date and time: November 04, 2024 1822 hours Comparison July 06, 2024 INDICATIONS: Congestion coughing and shortness of breath today. FINDINGS: Diffuse significant bilateral pneumonia Mild prominence of ventricle Vascular congestion, moderate Moderate osteopenia IMPRESSION: Diffuse significant bilateral pneumonia
[2024-11-04] MEDS: SODIUM CHLORIDE 0.9% 1000 ML 1,000 ML 125 ML IV (18:45)
--- NOTE | 2024-11-04 19:21 | PC.NURSE ---
PER PATIENTS SON NASRIN BAEZ HE IS PRIMARY CAREGIVER AND MANAGES PATIENTS MEDICATION. UNABLE TO DETERMINE IF PATIENT SAFELY TAKES MEDICATION AND CURRENT LIVING CONDITION. DEMAND PLANNING MANAGER REFERRAL MADE.
--- NOTE | 2024-11-04 19:42 | PC.NURSE ---
MD Hammond, called to confirm if patient will be stroke alert due to ED RN completing NIH stroke scale for AMS and ordering MRI. MD Hammond verified that patient is not a stroke alert.
[2024-11-04] MEDS: Magnesium Sulfate 2 GM Ivpb 2 GM/50 ML BAG IV (20:10)
[2024-11-04] MEDS: POTASSIUM CHL 10 mEq IVPB 10 MEQ/100 ML BAG 100 MEQ IV (20:10)
[2024-11-04] MEDS: POLYETHYLENE GLYCOL 17 GM PACKET PO (20:52)
[2024-11-04] MEDS: FAMOTIDINE INJ 10 MG/ML VIAL 2 ML 20 MG IVP (20:53)
[2024-11-04] MEDS: POTASSIUM CHL 10 mEq IVPB 10 MEQ/100 ML BAG 50 MEQ IV (22:00)
[2024-11-04 22:08] LABS: Albumin, Serum 4.3 gm/dL (3.5-5.0); Anion Gap 4 (7-16); BUN/Creatinine Ratio 12 Ratio (12-20); Blood Urea Nitrogen 21 mg/dL (9-23); Carbon Dioxide 27.7 mMol/L (20.0-31.0); Chloride 105 mMol/L (98-107); Creatinine (Component) 1.7 mg/dL (0.6-1.3); Estimated Creatinine Clearance 43.7 mL/min (>60); Glucose 316 mg/dL (74-106); Osmolality,Calculated 288 (275-295); Phosphorous 2.9 mg/dL (2.4-5.1); Potassium 3.6 mMol/L (3.4-5.1); Sodium 137 mMol/L (136-145); eGFR 36 See Note
[2024-11-04 22:12] LABS: Calcium 14.2 mg/dL (8.3-10.6); Calcium (Corrected) 14.2 mg/dL (8.5-10.1)
[2024-11-05] VITALS (23 sets, daily range): BP systolic 142–175; BP diastolic 73–120; PULSE 75–102; RESP 14–27; TEMP 36.3–37.1; O2SAT 91–98; BMI 32.5; BMI 12.0
[2024-11-05] MEDS: CALCITONIN, SALMON SYNTH INJ 1 UNIT/0.005 ML VIAL 400 UNIT SC (01:30)
[2024-11-05 02:07] LABS: Albumin, Serum 4.1 gm/dL (3.5-5.0); Anion Gap 5 (7-16); BUN/Creatinine Ratio 13 Ratio (12-20); Blood Urea Nitrogen 21 mg/dL (9-23); Calcium 12.6 mg/dL (8.3-10.6); Calcium (Corrected) 12.6 mg/dL (8.5-10.1); Carbon Dioxide 27.9 mMol/L (20.0-31.0); Chloride 107 mMol/L (98-107); Creatinine (Component) 1.6 mg/dL (0.6-1.3); Estimated Creatinine Clearance 46.4 mL/min (>60); Glucose 261 mg/dL (74-106); Osmolality,Calculated 291 (275-295); Phosphorous 2.2 mg/dL (2.4-5.1); Potassium 3.7 mMol/L (3.4-5.1); Sodium 140 mMol/L (136-145); eGFR 38 See Note
[2024-11-05] MEDS: SODIUM CHLORIDE 0.9% 1000 ML 1,000 ML 125 ML IV (02:52)
[2024-11-05 05:25] LABS: Basophils % (Auto) 0 % (0-2.5); Eosinophils % (Auto) 1 % (0-10); Nucleated Red Blood Cell % 0 /100 WBC (0)
[2024-11-05 05:27] LABS: Lymphocytes # (Auto) 0.7 Thou/mm3 (1.0-4.8); Lymphocytes % (Auto) 6 % (10-50)
[2024-11-05 05:36] LABS: Eosinophils # (Auto) 0.2 Thou/mm3 (0.0-0.5); Hematocrit 39.6 % (36.0-46.0); Hemoglobin 13.5 g/dL (12.0-16.0); Immature Granulocytes % (Auto) 1 % (0-0); Immature Granulocytes Auto 0.09 Thou/mm3 (0.00-0.00); Mean Corpuscular HGB Conc 34.1 g/dl (31.0-37.0); Mean Corpuscular Hemoglobin 30.8 pg (25.0-35.0); Mean Corpuscular Volume 90 fL (80-100); Monocytes # (Auto) 1.2 Thou/mm3 (0.0-0.8); Monocytes % (Auto) 10 % (0-12); Neutrophils # (Auto) 9.9 Thou/mm3 (1.8-7.7); Neutrophils % (Auto) 82 % (37-80); Platelet Count 330 Thou/mm3 (140-440); RDW Standard Deviation 44.2 fL (36.4-46.3); Red Blood Count 4.39 Miln/mm3 (4.00-5.20); White Blood Count 12.1 Thou/mm3 (3.6-11.0)
[2024-11-05 05:53] LABS: Albumin, Serum 4.1 gm/dL (3.5-5.0); Anion Gap 8 (7-16); BUN/Creatinine Ratio 13 Ratio (12-20); Blood Urea Nitrogen 19 mg/dL (9-23); Calcium 12.2 mg/dL (8.3-10.6); Calcium (Corrected) 12.2 mg/dL (8.5-10.1); Carbon Dioxide 25.9 mMol/L (20.0-31.0); Cardiac Risk Estimate 5.5 RATIO (3.7-5.6); Chloride 107 mMol/L (98-107); Cholesterol 137 mg/dL (132-200); Creatinine (Component) 1.5 mg/dL (0.6-1.3); Estimated Creatinine Clearance 49.5 mL/min (>60); Glucose 272 mg/dL (74-106); HDL Cholesterol 25 mg/dL (40-60); LDL Cholesterol,Calculated 52 mg/dL (0-130); Magnesium 1.9 mg/dL (1.6-2.6); Osmolality,Calculated 293 (275-295); Phosphorous 2.1 mg/dL (2.4-5.1); Potassium 3.9 mMol/L (3.4-5.1); Sodium 141 mMol/L (136-145); Thyroid Stimulating Hormone 4.18 uIU/mL (0.55-4.78); Triglycerides 301 mg/dL (30-150); eGFR 41 See Note
[2024-11-05 05:58] LABS: Glucose Estimated Average 177 mg/dL (80-131); Hemoglobin A1C 7.8 % Hgb (4.8-6.0)
--- NOTE | 2024-11-05 08:26 | ESPR_ITS ---
<Statement entered by Miguel A Morrow MD - 11/05/24 18:12> = TOTAL TIME: 45MINUTES ON DIRECT MEDICAL CARE, MANAGEMENT - COORDINATION AND COUNSELING > 50% OF TOTAL TIME I saw and evaluated the patient. I reviewed the resident?s note and agree with findings and plan as documented in the resident?s note. improved - speech much clearer can transfer to med/surg do not replace fentanyl patch until we can confirm what type of patch she has will try opiod antagonist for consitpation (check if we have Relistor) HR / BP remain acceptable stable to transfer to med/surg Documentation for date of: 11/05/24 Subjective Subjective Interval history: Ms. Lawrence is a 53-year-old female who was brought in by family for change in mentation that started on Monday. Patient was noted to have slurred speech, which progressed to difficulty finding words and worsening confusion over the last 24 hours. As per son present at bedside, patient has never had the symptoms in the past. She is ambulatory at baseline, however has not left the bed since Monday. He states that that she also complains of epigastric discomfort that started about 48 hours ago, with intermittent nausea but no episodes of vomiting. She does have history of constipation, and as per son has not had a bowel movement over the last 4 days. Per son, she is fairly compliant with her medications, recently saw her executive relations specialist Dr. Byrne who recommended possible discontinuation of her antihypertensives due to low blood pressure. Patient denies any recent infections, travels or other systemic symptoms at this time. She remembered her name, date of tenderness her son at bedside, however was not oriented to place. In the ED, vitals showed blood pressure 159/84, HR 90s oxygen saturations 92-96% on 2 L oxygen via nasal cannula. On imaging, head CT was remarkable for 7 mm calcified right frontal meningioma. EKG shows sinus rhythm and nonspecific T wave abnormality, possible right ventricular hypertrophy. X-ray of the abdomen showed abundant stool throughout the colon. Initial body workup remarkable for leukocytosis WBC 12.1, SHAY: creatinine 1.9 and GFR 31 and severe hypercalcemia 17.3 corrected calcium. Parathyroid hormone was low at 16.5. Urinalysis fairly within normal limits. Urine lytes showed elevated calcium at 30 (normal 2?18). Patient was given 1 L IVF bolus in the ED and pamidronate x 1. Patient was admitted to the ICU for close monitoring and management of severe hypercalcemia causing risk of cardiac and neurological dysfunction. Nephrology consulted for SHAY and electrolyte normalities, pending recommendations. 11/05/2024: Overnight no events. Patient oriented to self and place, much improved from yesterday with no dysarthria. Tolerating dysphagia 2 diet. From telemetry review patient had PVCs overnight with rates between 70s?90s. CR improved to 1.5 from 1.7, corrected calcium improved from 17.3-12.2 and phosphorus decreased to 2.1. Restarted fentanyl patch at 25 mcg [of of home dose]. Will discontinue calcitonin, hypercalcemia seems most likely due to dehydration. Patient clinically stable to downgrade to the floor. Exam Vital Signs Temp Pulse Resp BP Pulse Ox O2 Del Method O2 Flow Rate 98.8 F 91 18 161/97 H 97 Nasal Cannula 3 11/05/24 04:01 11/05/24 07:01 11/05/24 07:01 11/05/24 06:00 11/05/24 07:01 11/04/24 17:45 11/05/24 07:01 Narrative Exam Constitutional Alert, oriented x2 to time and person. Obese HEENT Vision grossly intact, but unable to track with eyes. Patent nares. Trachea midline. Expressive aphasia Respiratory Chest normal on inspection and clear to auscultation bilaterally. 2 L oxygen via nasal cannula, sats 94-95% Cardiovascular S1 and S2 audible, RRR. No murmurs or carotid bruit. No gross JVD. Abdominal Soft, obese and nontender to palpation. BS + ; Genitourinary No bladder tenderness, no flank pain. Normal to palpation. Musculoskeletal Extremities tone within normal limits. No LE edema. Neurological CN II - XII grossly intact. Extremity motor 5/5 and sensation grossly intact. G CS 14 E4, V4 M6 . Normal reflexes Skin Warm, dry and intact. No apparent lesions. Objective Labs 11/05/24 04:50 11/05/24 04:50 Labs: Laboratory Results - last 24 hr 11/04/24 11/04/24 11/04/24 10:34 10:50 12:10 WBC 12.1 H RBC 4.77 Hgb 14.4 Hct 44.0 MCV 92 MCH 30.2 MCHC 32.7 RDW Std Deviation 44.9 Plt Count 329 Neut % (Auto) 74 Lymph % (Auto) 12 Gonzales % (Auto) 12 Eos % (Auto) 1 Baso % (Auto) 0 Neut # (Auto) 9.0 H Lymph # (Auto) 1.5 Gonzales # (Auto) 1.5 H Eos # (Auto) 0.1 Baso # (Auto) 0.0 Immature Gran # (Auto) 0.06 H Absolute Nucleated RBC 0.00 Immature Gran % 1 H Nucleated RBC % 0 PT 10.7 INR 1.0 APTT 20.4 L VBG pH 7.39 VBG pCO2 50 VBG pO2 36 VBG O2 Sat (Nitish) 67 L VBG Base Excess 4 H Sodium 135 L Potassium 3.9 Chloride 100 Carbon Dioxide 30.2 Anion Gap 5 L BUN 25 H Creatinine 1.9 H Estim Creat Clear Calc 41.5 L eGFR 31 L BUN/Creatinine Ratio [address]ucose [address] Glu mg/dL Hemoglobin A1c Calculated Osmolality 285 Calcium 17.3 H* Corrected Calcium 17.3 H* Phosphorus 3.2 Magnesium 2.1 Total Bilirubin 0.3 AST 22 ALT 14 Alkaline Phosphatase 92 Troponin I < 0.020 B-Natriuretic Peptide 21 Total Protein 7.0 Albumin 4.6 Globulin 2.4 Albumin/Globulin Ratio 1.9 Triglycerides Cholesterol LDL Cholesterol, Calc HDL Cholesterol Cholesterol/HDL Ratio 25-OH Vitamin D Total 29.1 TSH PTH Intact 16.5 L Ur Collection Type Catheter Urine Color Lt-Yellow Urine Clarity Clear Urine pH 5.5 Ur Specific Reva 1.016 Urine Protein Negative Urine Glucose (UA) 1+ A Urine Ketones Negative Urine Blood Negative Urine Nitrite Negative Urine Bilirubin Negative Urine Urobilinogen (Auto) Negative Ur Leukocyte Esterase Negative Urine RBC 2 Urine WBC 5 Ur Squamous Epith Cells 1 Ur Transition Epith Cell < 1 Urine Bacteria None Hyaline Casts < 1 Ur Random Creatinine 97 Ur Random Sodium < 15.0 L Ur Random Potassium 36 Ur Random Chloride < 20.0 L Ur Random Calcium 30 H Urine Opiates Screen Negative Urine Fentanyl Screen Positive A Ur Barbiturates Screen Negative U Amphetamin/Meth Scrn Negative U Benzodiazepines Scrn Negative [place] 0.60 L U Cocaine Metab Screen Negative U Marijuana (THC) Screen Positive A Ethyl Alcohol < 3.0 11/04/24 11/04/24 11/05/24 17:19 21:30 01:30 WBC RBC Hgb Hct MCV MCH MCHC RDW Std Deviation Plt Count Neut % (Auto) Lymph % (Auto) Gonzales % (Auto) Eos % (Auto) Baso % (Auto) Neut # (Auto) Lymph # (Auto) Gonzales # (Auto) Eos # (Auto) Baso # (Auto) Immature Gran # (Auto) Absolute Nucleated RBC Immature Gran % Nucleated RBC % PT INR APTT VBG pH VBG pCO2 VBG pO2 VBG O2 Sat (Nitish) VBG Base Excess Sodium 137 137 140 Potassium 3.9 3.6 3.7 Chloride 104 105 107 Carbon Dioxide 25.6 27.7 27.9 Anion Gap 7 4 L 5 L BUN 17 21 21 Creatinine 1.7 H 1.7 H 1.6 H Estim Creat Clear Calc 46.4 L 43.7 L 46.4 L eGFR 36 L 36 L 38 L BUN/Creatinine Ratio 10 L 12 13 Glucose 346 H [address] Glu mg/dL Hemoglobin A1c Calculated Osmolality 289 288 291 Calcium 13.8 H* D 14.2 H* 12.6 H D Corrected Calcium 13.8 H* D 14.2 H* 12.6 H D Phosphorus 3.4 2.9 2.2 L Magnesium Total Bilirubin AST ALT Alkaline Phosphatase Troponin I B-Natriuretic Peptide Total Protein Albumin 4.2 4.3 4.1 Globulin Albumin/Globulin Ratio Triglycerides Cholesterol LDL Cholesterol, Calc HDL Cholesterol Cholesterol/HDL Ratio 25-OH Vitamin D Total TSH PTH Intact Ur Collection Type Urine Color Urine Clarity Urine pH Ur Specific Reva Urine Protein Urine Glucose (UA) Urine Ketones Urine Blood Urine Nitrite Urine Bilirubin Urine Urobilinogen (Auto) Ur Leukocyte Esterase Urine RBC Urine WBC Ur Squamous Epith Cells Ur Transition Epith Cell Urine Bacteria Hyaline Casts Ur Random Creatinine Ur Random Sodium Ur Random Potassium Ur Random Chloride Ur Random Calcium Urine Opiates Screen Urine Fentanyl Screen Ur Barbiturates Screen U Amphetamin/Meth Scrn U Benzodiazepines Scrn [place] U Cocaine Metab Screen U Marijuana (THC) Screen Ethyl Alcohol 11/05/24 04:50 WBC 12.1 H RBC 4.39 Hgb 13.5 Hct 39.6 MCV 90 MCH 30.8 MCHC 34.1 RDW Std Deviation 44.2 Plt Count 330 Neut % (Auto) 82 H Lymph % (Auto) 6 L Gonzales % (Auto) 10 Eos % (Auto) 1 Baso % (Auto) 0 Neut # (Auto) 9.9 H Lymph # (Auto) 0.7 L Gonzales # (Auto) 1.2 H Eos # (Auto) 0.2 Baso # (Auto) 0.0 Immature Gran # (Auto) 0.09 H Absolute Nucleated RBC 0.00 Immature Gran % 1 H Nucleated RBC % 0 PT INR APTT VBG pH VBG pCO2 VBG pO2 VBG O2 Sat (Nitish) VBG Base Excess Sodium 141 Potassium 3.9 Chloride 107 Carbon Dioxide 25.9 Anion Gap 8 BUN 19 Creatinine 1.5 H Estim Creat Clear Calc 49.5 L eGFR 41 L BUN/Creatinine Ratio 13 [address]ucose [address] Glu mg/dL 177 H Hemoglobin A1c 7.8 H Calculated Osmolality 293 Calcium 12.2 H Corrected Calcium 12.2 H Phosphorus 2.1 L Magnesium 1.9 Total Bilirubin AST ALT Alkaline Phosphatase Troponin I B-Natriuretic Peptide Total Protein Albumin 4.1 Globulin Albumin/Globulin Ratio Triglycerides 301 H Cholesterol 137 LDL Cholesterol, Calc 52 HDL Cholesterol 25 L Cholesterol/HDL Ratio 5.5 25-OH Vitamin D Total TSH 4.18 PTH Intact Ur Collection Type Urine Color Urine Clarity Urine pH Ur Specific Reva Urine Protein Urine Glucose (UA) Urine Ketones Urine Blood Urine Nitrite Urine Bilirubin Urine Urobilinogen (Auto) Ur Leukocyte Esterase Urine RBC Urine WBC Ur Squamous Epith Cells Ur Transition Epith Cell Urine Bacteria Hyaline Casts Ur Random Creatinine Ur Random Sodium Ur Random Potassium Ur Random Chloride Ur Random Calcium Urine Opiates Screen Urine Fentanyl Screen Ur Barbiturates Screen U Amphetamin/Meth Scrn U Benzodiazepines Scrn [place] U Cocaine Metab Screen U Marijuana (THC) Screen Ethyl Alcohol ABG Interpretation ABG results: 11/04/24 10:34 VBG pH 7.39 VBG pCO2 50 VBG pO2 36 VBG Base Excess 4 H Quality Measures Quality Measures none Assessment & Plan Assessment Current Active Medications: Generic Name Dose Route Start Last Admin Trade Name Freq PRN Reason Stop Dose Admin Acetaminophen 1,000 mg 11/04/24 13:13 Acetaminophen 325 Mg Tablet PO 12/04/24 13:12 Q6H PRN Fever >99.9 Dextrose 50 ml 11/04/24 17:14 Dextrose 50%-Water Inj 50 Ml Syringe IV 12/04/24 17:13 Q15MIN PRN BG <50 OR BG <70 & pt unresponsive Enoxaparin Sodium 30 mg 11/05/24 09:00 Enoxaparin Sod Inj 30 Mg/0.3 Ml Syringe SC 11/19/24 08:59 QDAY KETAN Famotidine 20 mg 11/04/24 21:00 11/04/24 20:53 Famotidine Inj 10 Mg/Ml Vial 2 Ml IVP 12/04/24 20:59 20 mg Q12HR KETAN Administration Glucagon 1 mg 11/04/24 17:14 Glucagon Inj 1 Mg Vial IM Q15MIN PRN BG <70, and no IV access Insulin Human Lispro 0 unit 11/05/24 07:30 Insulin Lispro (Admelog) 1 Unit/0.01 Ml Unit SC 12/05/24 07:29 AC KETAN Protocol Lidocaine 1 patch 11/04/24 18:23 Lidocaine 5% 1 Patch TOP 12/04/24 18:22 UD PRN PAIN Ondansetron HCl 4 mg 11/04/24 13:23 Ondansetron Inj 2 Mg/Ml Inj 2 Ml IVP 12/04/24 13:22 Q6H PRN NAUSEA OR VOMITING Protocol Plan Ms. Lawrence is a 53-year-old female who was brought in by family for change in mentation. Patient was admitted to the ICU for close monitoring and management of severe hypercalcemia causing risk of cardiac and neurological dysfunction. NEURO Acute metabolic encephalopathy secondary to Hypercalcemia - resolving Right frontal lobe meningioma Dx: - Brought in by son for altered mentation the started on 11/01/2024, which progressed to difficulty finding words and worsening confusion over the last 24 hours. As per son present at bedside, patient has never had the symptoms in the past. - Head CT : 7 mm calcified right frontal meningioma. - EKG shows sinus rhythm and nonspecific T wave abnormality, possible right ventricular hypertrophy. Rx: - Continue to monitor - MRI Brain ordered by ED, will follow up results - Will need outpatient Neurology follow up for mentation and Incidentally found meningioma Chronic back pain Hx of lumbar spine fusion Dx: - Hx of chronic opiod use home dose oxycodone 20 Mg p.o. Q6 hourly as needed and fentanyl patch 50 mcg daily every 72 hours - Patient had lumbar spine fusion performed a few years ago, is ambulatory w/o assistance at baseline. - Medication use hx: ropinirole, quetiapine, pregabalin, paroxetine, risperidone at home. Rx: - Resumed fentanyl patch 25 mcg every 72 hours [ half of home dose]. To avoid withdrawal RRx: - Monitor for need for continued opiods and recommend to taper as outpatient CVS Frequent PVCs DDx: Hypercalcemia DX: On telemetry review patient had frequent PVCs overnight with HR 70?90s Rx: Will maintain K >4 and Mg >2 to prevent any further arrhythmias PULM Community-acquired pneumonia Dx: Chest x-ray showed diffuse bilateral pulmonary consolidation Rx: ? Started on ceftriaxone 1 g IV daily on [11/05? ? Started on azithromycin 500 Mg IV daily on [11/05? Hx of COPD Hx of >40 pk years of smoking GI/Hep Abdominal pain Constipation 2/2 chronic opioid use Dx: - Hx of chronic opid use both oral and fentanyl patch for back pain - Abdo X-ray of the abdomen showed abundant stool throughout the colon. - On Calcium and Vit D supplements twice a day + also takes (TUMS) Calcium Carb frequently Rx: - Movantik 25mg po x 1. Recommend to stop calcium and VitD supplementation RRx: - If no BM to schedule dosage RENAL SHAY , likely prerenal - resolving Dx: - SHAY: creatinine 1.9 -> 1.5 - Baseline Cr 0.9 and GFR >60 Rx: - On maintenance IVF : NS @ 125 cc/h - Renally dose medication - Avoid Nephrotoxic agents Severe hypercalcemia - resolving DDx: dehydration, multiple myeloma, solid organ malignancy Dx: - Ca: 17.3 corrected calcium --> 13.8 -->12.2 - Parathyroid hormone : (low) 16.5. - Urinalysis fairly within normal limits. - Urine lytes showed elevated calcium at 30 (normal 2?18). - Patient takes Calcium and Vit D supplements twice a day + also takes (TUMS) Calcium Carb frequently - Other meds: ropinirole, quetiapine, pregabalin, paroxetine, risperidone at home. Rx: - Nephrology consulted, appreciate recommendations. - Was given pamidronate x 1 in ED + Calcitonin 400IU x 1 ordered - Continue maintenance IVF RRx: Patient's severe hypercalcemia is resolving, clinically stable for downgrade to the medical floor. However she will still need further workup to identify a definitive etiology for her hypercalcemia, recommend outpatient follow-up. 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 Home insulin: 36 units glargine, SSI lispro AC Rx: - Glargine 10U SC at bedtime ? SSI ACHS ? Low-carb consistent diet ID See pulm MSK/DERM No active problems. ICU Health maintenance: Dispo: Patient's Hypercalcemia is resolving, clinically stable for downgrade to the floor Diet: Low carb consistent dysphagia 2 DVT ppx: Enoxaparin 30mg SC daily GI ppx: Famotidine 20 mg every 12 IV lines: 2 pIV Code status: FULL CODE Plan of care discussed with Attending Dr. Cristhian Roth MD PGY 1 Disclaimer: This note was dictated by speech recognition. Minor errors in fermenter champagne may be present due to voice recognition software.
[2024-11-05] MEDS: INSULIN LISPRO (AdmeLOG) 1 UNIT/0.01 ML UNIT SC ×3 (08:53→17:26)
[2024-11-05] MEDS: NAPH,KPH MBDB 1 PACKET (1.5 GM) 2 PACKET PO (08:55)
[2024-11-05] MEDS: ENOXAPARIN SOD INJ 30 MG/0.3 ML SYRINGE SC (08:55)
[2024-11-05] MEDS: FAMOTIDINE INJ 10 MG/ML VIAL 2 ML 20 MG IVP ×2 (08:55→21:00)
--- NOTE | 2024-11-05 09:09 | PCS.ST ---
Swallow Evaluation completed. See report for details. Change diet to Dysphagia 2/Reg liquids. ST to follow
[2024-11-05 09:17] LABS: Albumin, Serum 4.1 gm/dL (3.5-5.0); Anion Gap 5 (7-16); BUN/Creatinine Ratio 11 Ratio (12-20); Blood Urea Nitrogen 17 mg/dL (9-23); Calcium 11.4 mg/dL (8.3-10.6); Calcium (Corrected) 11.4 mg/dL (8.5-10.1); Carbon Dioxide 26.3 mMol/L (20.0-31.0); Chloride 107 mMol/L (98-107); Creatinine (Component) 1.5 mg/dL (0.6-1.3); Estimated Creatinine Clearance 49.5 mL/min (>60); Glucose 328 mg/dL (74-106); Osmolality,Calculated 290 (275-295); Phosphorous 1.9 mg/dL (2.4-5.1); Potassium 3.8 mMol/L (3.4-5.1); Sodium 138 mMol/L (136-145); eGFR 41 See Note
[2024-11-05] MEDS: NALOXEGOL OXALATE 25 MG TABLET (NON-FORMULARY) PO (10:05)
[2024-11-05] MEDS: fentaNYL 25 mCg TRANSDERMAL PATCH TOP (10:10)
[2024-11-05] MEDS: Magnesium Sulfate 2 GM Ivpb 2 GM/50 ML BAG IV (10:17)
[2024-11-05] MEDS: POTASSIUM CHL 10 mEq IVPB 10 MEQ/100 ML BAG 100 MEQ IV ×2 (10:18→11:28)
--- NOTE | 2024-11-05 11:14 | PC.SS ---
[employer] CONSULTANT conducted bedside contact with the patient conduct initial assessment and to discuss discharge planning.? At bedside with patient was son, Avery Prado .? Information obtained from patient?s son due to the patient being disoriented.? Patient resides at home with sonKarlo.? Patient utilizes a wheelchair to assist with mobility.? Patient utilizes home oxygen.? Patient requires assistance with the completion of ADL?s.? Patient?s son, Avery Prado; is the patient?s [facility] staff and provides assistance to the patient with completion of ADL?s and provides transportation on behalf of the patient.? Patient?s medical surrogate decision maker is Avery kaur.? Patient?s PCP is Dr. Lara.? The patient?s manager enterprise content management is Dr. Byrne.? ?The patient does not participate with dialysis.? Patient utilizes [facility] for medication services.? Discharge plan is for the patient to transition to SNF upon discharge.? No preferred SNF identified by the patient?s son.? Patient possesses history of depression, prescribed Paxil.? [employer] CONSULTANT informed patient?s son that authorization would need to be granted in order for patient to transition to SNF.? Placement will be short term.? Patient possesses coverage for ambulance transport to SNF upon discharge.? No further intervention required at this time, social work specialist will be available to address any further concerns.? Next of Kin: Avery Prado D/C Plan: SNF
--- NOTE | 2024-11-05 11:16 | PC.SS ---
Discharge plan is for SNF. Patient will require authorization ([employer]). Physical therapy note pending. SNF referral to be submitted on [facility].
--- NOTE | 2024-11-05 11:18 | PC.SS ---
Update: Patient to be downgraded from ICU today.
--- NOTE | 2024-11-05 13:23 | ECHO_ITS ---
Transthoracic Echo Report Ht (in): 66 Wt (lb): 202 Exam Location: Echo Lab Status: Inpatient Technical Communication Teacher: Siri Marlow Indications: Procedure Performed: BP: 161 / 97 HR: 91 Technical Quality: Technically Difficult Study MEASUREMENTS (Male / Female) Normal Values 2D ECHO LV Diastolic Diameter PLAX 5.0 cm 4.2 - 5.9 / 3.9 - 5.3 cm LV Systolic Diameter PLAX 2.6 cm IVS Diastolic Thickness 0.8 cm 0.6 - 1.0 / 0.6 - 0.9 cm LVPW Diastolic Thickness 0.6 cm 0.6 - 1.0 / 0.6 - 0.9 cm LV Relative Wall Thickness 0.3 LVOT Diameter 2.0 cm LA Volume Index 20.4 cm?/m? 16 - 28 cm?/m? Ascending Aorta Diameter 2.9 cm DOPPLER AV Peak Velocity 121.0 cm/s AV Peak Gradient 5.9 mmHg LVOT Peak Velocity 126.0 cm/s LVOT Peak Gradient 6.4 mmHg AV Area Cont Eq pk 3.3 cm? MV Area PHT 3.2 cm? Mitral E Point Velocity 104.0 cm/s Mitral A Point Velocity 100.0 cm/s Mitral E to A Ratio 1.0 LV E' Lateral Velocity 8.2 cm/s Mitral E to LV E' Lateral Ratio 12.7 LV E' Septal Velocity 6.4 cm/s Mitral E to LV E' Septal Ratio 16.2 PV Peak Velocity 78.7 cm/s PV Peak Gradient 2.5 mmHg FINDINGS Left Ventricle Normal left ventricular size, wall thickness, systolic function with no obvious regional wall motion abnormalities. Normal left ventricular diastolic filling pattern for age. The ejection fraction is visually estimated at 55 %. Right Ventricle The right ventricle is normal in size and systolic function. The estimated right ventricular systolic pressure can not be reported due to inadequate Doppler signal. Left Atrium The left atrium is normal by two-dimensional, color flow and Doppler imaging with no structural abnormalities, no thrombus formation present. Right Atrium The right atrium is normal by two-dimensional imaging, color flow and Doppler imaging with no structural abnormalities, no thrombus formation present. Atrial Septum The interatrial septum appears normal with no evidence of a shunt. Aorta The aorta is normal by two-dimensional, color flow and Doppler interrogation. Mitral Valve The mitral valve is normal by two-dimensional, color flow and Doppler interrogation. There is no significant mitral valve regurgitation, stenosis or prolapse. Aortic Valve The aortic valve is trileaflet and normal by two-dimensional, color flow and Doppler interrogation. There is no significant aortic valve regurgitation. Tricuspid Valve The tricuspid valve is normal by two-dimensional, color flow and Doppler interrogation. There is no significant tricuspid valve regurgitation. Pulmonic Valve The pulmonic valve is not well visualized. There is no significant pulmonic valve regurgitation. Vessels The pulmonary artery appears normal. The inferior vena cava measures the upper limits of normal. Pericardium The pericardium is normal by two-dimensional imaging. There is no significant pericardial effusion. CONCLUSIONS Indications: History of CHF Normal LV size and function. Estimated EF of 55 to 60%. Diastolic dysfunction indeterminate. Normal RV size and function. Inadequate TR to measure RVSP as well as diastolic dysfunction Trace MR and TR. No pericardial effusion. Jf Johnson (Electronically Signed) Final Date: 05 November 2024 18:51
--- NOTE | 2024-11-05 14:06 | PD.RESPRO ---
Documentation for date of: 11/05/24 Subjective Subjective Interval history: Leonidas Lawrence is a 53-year-old female PMH of hypertension, insulin-dependent type 2 diabetes, COPD, marijuana smoker, chronic back pain, fibromyalgia who presented to the ED on 11/04 due to altered mental status. The son is main caregiver and noticed that she had soiled herself and had slurred speech that was not making sense. In ED labs showed severe hypercalcemia of 17.3, PTH low 16.5. Nephrology Dr Gill consulted and patient started on calcitonin, admitted to ICU for close monitoring of cardiac dysfunction. EKGs remained normal with no signs of arrhythmia and calcium improved to 12. Mentation improved, tolerating dysphagia 2 diet. From telemetry review patient had PVCs overnight with rates between 70s?90s. Restarted fentanyl patch at 25 mcg [half of home dose]. Discontinued calcitonin and will continue IV fluids. Patient was clinically stable and downgraded to the floors. Today neurology Dr. Medeiros was consulted due to acute encephalopathy and findings of meningioma on CT head. She is not concerned at this time as previous imaging also showed the meningioma. Dr. 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 Exam Vital Signs Temp Pulse Resp BP Pulse Ox O2 Del Method O2 Flow Rate 98.4 F 86 26 H 156/93 H 98 Nasal Cannula 3 11/05/24 12:00 11/05/24 12:00 11/05/24 12:00 11/05/24 12:00 11/05/24 12:00 11/04/24 17:45 11/05/24 07:01 Narrative Exam General: Middle age female, obese, No acute distress HEENT: NCAT, No JVD noted. Mucosa moist. Pupils are equal and reactive to light bilaterally Cardiovascular: Normal S1 and S2. Regular rate and rhythm. Respiratory: Lungs are clear to auscultation bilaterally. No wheezing or crackles heard.2 L oxygen via nasal cannula, sats 94-95% Abdomen: Soft, nontender, not distended, normal bowel sounds. Skin: Warm to touch, dry, no rashes noted Musculoskeletal: No gross injuries. Able to move all 4 extremities. No pitting edema Neuro: Alert and oriented x2. Expressive aphasia. Objective Labs 11/05/24 04:50 11/05/24 08:45 Labs: Laboratory Results - last 24 hr 11/04/24 11/04/24 11/04/24 10:34 10:50 12:10 WBC RBC Hgb Hct MCV MCH MCHC RDW Std Deviation Plt Count Neut % (Auto) Lymph % (Auto) [place] % (Auto) Eos % (Auto) Baso % (Auto) Neut # (Auto) Lymph # (Auto) [place] # (Auto) Eos # (Auto) Baso # (Auto) Immature Gran # (Auto) Absolute Nucleated RBC Immature Gran % Nucleated RBC % Sodium Potassium Chloride Carbon Dioxide Anion Gap BUN Creatinine Estim Creat Clear Calc eGFR BUN/Creatinine Ratio Glucose Estimated Ave Glu mg/dL Hemoglobin A1c Calculated Osmolality Calcium Corrected Calcium Phosphorus 3.2 Magnesium Albumin Triglycerides Cholesterol LDL Cholesterol, Calc HDL Cholesterol Cholesterol/HDL Ratio 25-OH Vitamin D Total 29.1 TSH PTH Intact 16.5 L Ur Random Creatinine 97 Ur Random Sodium < 15.0 L Ur Random Potassium 36 Ur Random Chloride < 20.0 L Ur Random Calcium 30 H [place] 0.60 L 11/04/24 11/04/24 11/05/24 17:19 21:30 01:30 WBC RBC Hgb Hct MCV MCH MCHC RDW Std Deviation Plt Count Neut % (Auto) Lymph % (Auto) [place] % (Auto) Eos % (Auto) Baso % (Auto) Neut # (Auto) Lymph # (Auto) [place] # (Auto) Eos # (Auto) Baso # (Auto) Immature Gran # (Auto) Absolute Nucleated RBC Immature Gran % Nucleated RBC % Sodium 137 137 140 Potassium 3.9 3.6 3.7 Chloride 104 105 107 Carbon Dioxide 25.6 27.7 27.9 Anion Gap 7 4 L 5 L BUN 17 21 21 Creatinine 1.7 H 1.7 H 1.6 H Estim Creat Clear Calc 46.4 L 43.7 L 46.4 L eGFR 36 L 36 L 38 L BUN/Creatinine Ratio 10 L 12 13 Glucose 346 H [address] Glu mg/dL Hemoglobin A1c Calculated Osmolality 289 288 291 Calcium 13.8 H* D 14.2 H* 12.6 H D Corrected Calcium 13.8 H* D 14.2 H* 12.6 H D Phosphorus 3.4 2.9 2.2 L Magnesium Albumin 4.2 4.3 4.1 Triglycerides Cholesterol LDL Cholesterol, Calc HDL Cholesterol Cholesterol/HDL Ratio 25-OH Vitamin D Total TSH PTH Intact Ur Random Creatinine Ur Random Sodium Ur Random Potassium Ur Random Chloride Ur Random Calcium [place] 11/05/24 11/05/24 04:50 08:45 WBC 12.1 H RBC 4.39 Hgb 13.5 Hct 39.6 MCV 90 MCH 30.8 MCHC 34.1 RDW Std Deviation 44.2 Plt Count 330 Neut % (Auto) 82 H Lymph % (Auto) 6 L [place] % (Auto) 10 Eos % (Auto) 1 Baso % (Auto) 0 Neut # (Auto) 9.9 H Lymph # (Auto) 0.7 L [place] # (Auto) 1.2 H Eos # (Auto) 0.2 Baso # (Auto) 0.0 Immature Gran # (Auto) 0.09 H Absolute Nucleated RBC 0.00 Immature Gran % 1 H Nucleated RBC % 0 Sodium 141 138 Potassium 3.9 3.8 Chloride 107 107 Carbon Dioxide 25.9 26.3 Anion Gap 8 5 L BUN 19 17 Creatinine 1.5 H 1.5 H Estim Creat Clear Calc 49.5 L 49.5 L eGFR 41 L 41 L BUN/Creatinine Ratio 13 11 L Glucose [address] Glu mg/dL 177 H Hemoglobin A1c 7.8 H Calculated Osmolality 293 290 Calcium 12.2 H 11.4 H Corrected Calcium 12.2 H 11.4 H Phosphorus 2.1 L 1.9 L Magnesium 1.9 Albumin 4.1 4.1 Triglycerides 301 H Cholesterol 137 LDL Cholesterol, Calc 52 HDL Cholesterol 25 L Cholesterol/HDL Ratio 5.5 25-OH Vitamin D Total TSH 4.18 PTH Intact Ur Random Creatinine Ur Random Sodium Ur Random Potassium Ur Random Chloride Ur Random Calcium [place] ABG Interpretation ABG results: 11/04/24 10:34 VBG pH 7.39 VBG pCO2 50 VBG pO2 36 VBG Base Excess 4 H Quality Measures Quality Measures none Assessment & Plan Assessment Current Active Medications: Generic Name Dose Route Start Last Admin Trade Name Freq PRN Reason Stop Dose Admin Acetaminophen 1,000 mg 11/04/24 13:13 Acetaminophen 325 Mg Tablet PO 12/04/24 13:12 Q6H PRN Fever >99.9 Dextrose 50 ml 11/04/24 17:14 Dextrose 50%-Water Inj 50 Ml Syringe IV 12/04/24 17:13 Q15MIN PRN BG <50 OR BG <70 & pt unresponsive Enoxaparin Sodium 40 mg 11/06/24 09:00 Enoxaparin Sod Inj 40 Mg/0.4 Ml Syringe SC 11/20/24 08:59 QDAY [facility] Protocol Famotidine 20 mg 11/04/24 21:00 11/05/24 08:55 Famotidine Inj 10 Mg/Ml Vial 2 Ml IVP 12/04/24 20:59 20 mg Q12HR KETAN Administration Fentanyl 25 mcg 11/05/24 09:45 11/05/24 10:10 Fentanyl 25 Mcg Transdermal Patch TOP 11/10/24 09:44 25 mcg Q3D KETAN Administration Protocol Glucagon 1 mg 11/04/24 17:14 Glucagon Inj 1 Mg Vial IM Q15MIN PRN BG <70, and no IV access Ceftriaxone Sodium/Dextrose 1 gm in 50 mls @ 100 mls/hr 11/05/24 17:00 Rocephin/D5w 1gm Iv Premix IV 11/12/24 16:59 QDAY KETAN Azithromycin 500 mg/ Sodium 250 mls @ 250 mls/hr 11/05/24 15:00 Chloride IV 11/12/24 14:59 QDAY KETAN Insulin Glargine 10 unit 11/05/24 21:00 Insulin Glargine (Lantus) 5 Unit/0.05 Ml (Per 5 Units) SC 12/05/24 20:59 HS [facility] Insulin Human Lispro 0 unit 11/05/24 07:30 11/05/24 11:27 Insulin Lispro (Admelog) 1 Unit/0.01 Ml Unit SC 12/05/24 07:29 4 unit AC [facility] Administration Protocol Lidocaine 1 patch 11/04/24 18:23 Lidocaine 5% 1 Patch TOP 12/04/24 18:22 UD PRN PAIN Ondansetron HCl 4 mg 11/04/24 13:23 Ondansetron Inj 2 Mg/Ml Inj 2 Ml IVP 12/04/24 13:22 Q6H PRN NAUSEA OR VOMITING Protocol Plan Leonidas Lawrence is a 53-year-old female PMH of hypertension, insulin-dependent type 2 diabetes, COPD, marijuana smoker, chronic back pain, fibromyalgia who presented to the ED on 11/04 due to altered mental status. The son is main caregiver and noticed that she had soiled herself and had slurred speech that was not making sense. In ED labs showed severe hypercalcemia of 17.3, PTH low 16.5. Admitted to ICU for close monitoring of cardiac dysfunction. #Acute metabolic encephalopathy-improving #Meningioma Multifactorial due to electrolyte abnormalities hypercalcemia, polypharmacy, opiate overuse, excessive marijuana use Brought in by son due to altered mentation and slurred speech. Calcium 17.3 in ED. EKG is negative for any arrhythmias. ? Nephrology Dr Gill consulted, appreciate recs ? Continue IV fluids ? Has completed calcitonin doses ?Daily CBC CMP - Neurology consulted, appreciate recommendations #Severe hypercalcemia - resolving DDx: Dehydration, vitamin overuse, malignancy Ca: 17.3 corrected calcium --> 13.8 -->12.2 Parathyroid hormone : (low) 16.5. Urinalysis fairly within normal limits. Urine lytes showed elevated calcium at 30 (normal 2?18). Patient takes Calcium and Vit D supplements twice a day + also takes (TUMS) Calcium Carb frequently -IV fluids -daily CMP #Insulin dependent type 2 diabetes On admission initial glucose 300. Last A1c 7.8 on this admission. -Held home medications -Bedside blood glucose checks ACHS -glargine 10 HS -Insulin lispro sliding scale -Carb consistent low diet #CAP #COPD Chest x-ray showed diffuse bilateral pulmonary consolidation. ? Started on ceftriaxone 1 g IV daily on [11/05? ? Started on azithromycin 500 Mg IV daily on [11/05? #Chronic back pain Hx of chronic opiod use home dose oxycodone 20 Mg p.o. Q6 hourly as needed and fentanyl patch 50 mcg daily every 72 hours. Patient had lumbar spine fusion performed a few years ago, is ambulatory w/o assistance at baseline. Medication use hx: ropinirole, quetiapine, pregabalin, paroxetine, risperidone at home. -Resumed fentanyl patch 25 mcg every 72 hours (half of home dose) to avoid withdrawal - Recommend to taper outpatient #SHAY-resolving Likely prerenal due to decreased oral intake. 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 Sexton. Nay Syed, PGY-1 Attending Provider Attestation/Addendum I attest that I was physically present for the evaluation, physical examination, lab and imaging review of the patient with the residents. I discussed the case with the residents and agree with the findings and plans of care as documented above. Patient is a 53 years old female who was admitted to ICU for management of severe hyper calcium [place] acute metabolic encephalopathy.? Her initial calcium was 17.3, she also had SHAY.? Patient has recently been started on a decreased oral intake, nausea and vomiting.? Patient was started on IV hydration for SHAY and hypercalcemia.? Her calcium has improved to 12.2 this morning. ?Her mentation has also improved.? Patient was admitted to ICU for close monitoring in setting of severe hypercalcemia, she is transferred to floor today for further management.? At bedside, patient continues to be confused unable to follow all the commands.? Son at bedside states that patient is alert and awake, able to perform her finances at baseline and is not at her baseline currently. ?Continues to be on IV hydration, nephrology following closely, appreciate recommendations.? She is also noted to have right frontal lobe meningioma, which was not present on her last head CT.? We will obtain neurology consult for acute encephalopathy and evaluation of meningioma.? Continues to be on IV Rocephin and azithromycin for community-acquired pneumonia. Briana Sexton MD
--- NOTE | 2024-11-05 15:12 | PD.RESPRO ---
Documentation for date of: 11/05/24 Subjective Subjective Interval history: Limited HPI due to mental status, most of the information gathered from EMR chart review and patient's son Michael. The patient is a 53-year-old female with a past medical history of bipolar disorder, depression, PTSD, and CHF, COPD, hypertension, hyperlipidemia, asthma and diabetes mellitus who was brought into the emergency room due to chief complaint of altered mental status and aphasia. Per son, patient recently started Ozempic a couple weeks ago, and has been feeling sick to her stomach since then. Feels nauseous and has not been able to eat solid food, but states she is able to drink adequate fluids. Reported she has had diarrhea for most of the last month, after she ran out of her opioid medications and fentanyl patch, but since refilling her prescriptions, diarrhea has resolved. Denied fever, shortness of breath, but reported that patient frequently complains of chest discomfort, also reported she is being followed by decision support analyst Dr. Byrne. Per son, patient has no past medical history of cancer, unsure about [place] [employer] allergy. In the ER, initial vitals blood pressure 123/67, pulse 99/min, Tmax 90 8.2F, saturating 97% on 4 L nasal cannula O2, initial labs pertinent for mild leukocytosis WBC 12.1, hemoglobin 14.4, platelets 329, CMP shows marked hypercalcemia and SHAY. Sodium 135, potassium 3.9, chloride 100, carbon oxide 30.2, BUN 25, creatinine 1.9, glucose 305, calcium corrected 17.3, magnesium 2.1. U tox positive for fentanyl and marijuana, urinalysis unremarkable for UTI. CT head shows suspicion for 7 mm right frontal meningioma, recommended MRI for follow-up. EKG shows sinus rhythm and nonspecific T wave abnormality, possible right ventricular hypertrophy. 11/05/2024 the patient is evaluated at bedside, noted improvement in mental status, serum calcium improved to 12.2, serum sodium 141, potassium 3.9, BUN 19, creatinine 1.5. PTH levels within normal limit, 16.5, 2 5 hydroxy vitamin D3 in, 29.1, urine calcium to creatinine ratio 0.24, ruled out FHHC, lithium levels 0.60 continue with IV fluids, hold off on further administration of Exam Vital Signs Temp Pulse Resp BP Pulse Ox O2 Del Method O2 Flow Rate 98.4 F 86 26 H 156/93 H 98 Nasal Cannula 3 11/05/24 12:00 11/05/24 12:00 11/05/24 12:00 11/05/24 12:00 11/05/24 12:00 11/04/24 17:45 11/05/24 07:01 Narrative Exam General: Alert but oriented only in person, confused speech, able to move all 4 extremities. Skin: Intact, freckles all over, no cyanosis or edema noted. HEENT: Atraumatic/normocephalic, JUL[place], neck supple Heart: RRR, S1 and S2 without clicks or murmurs Lungs: Clear on auscultation bilaterally, no difficulty breathing Abdomen: Mild abdominal tenderness right and left lower quadrants. Bowel sounds present . Vascular: Peripheral pulses palpable Neuro: No focal neurological deficits noted. Objective Labs 11/05/24 04:50 11/05/24 08:45 Labs: Laboratory Results - last 24 hr 11/04/24 11/04/24 11/04/24 10:50 12:10 17:19 WBC RBC Hgb Hct MCV MCH MCHC RDW Std Deviation Plt Count Neut % (Auto) Lymph % (Auto) [place] % (Auto) Eos % (Auto) Baso % (Auto) Neut # (Auto) Lymph # (Auto) [place] # (Auto) Eos # (Auto) Baso # (Auto) Immature Gran # (Auto) Absolute Nucleated RBC Immature Gran % Nucleated RBC % Sodium 137 Potassium 3.9 Chloride 104 Carbon Dioxide 25.6 Anion Gap 7 BUN 17 Creatinine 1.7 H Estim Creat Clear Calc 46.4 L eGFR 36 L BUN/Creatinine Ratio 10 L Glucose [address] Glu mg/dL Hemoglobin A1c Calculated Osmolality 289 Calcium 13.8 H* D Corrected Calcium 13.8 H* D Phosphorus 3.4 Magnesium Albumin 4.2 Triglycerides Cholesterol LDL Cholesterol, Calc HDL Cholesterol Cholesterol/HDL Ratio TSH Ur Random Creatinine 97 Ur Random Sodium < 15.0 L Ur Random Potassium 36 Ur Random Chloride < 20.0 L Ur Random Calcium 30 H [place] 0.60 L 11/04/24 11/05/24 11/05/24 21:30 01:30 04:50 WBC 12.1 H RBC 4.39 Hgb 13.5 Hct 39.6 MCV 90 MCH 30.8 MCHC 34.1 RDW Std Deviation 44.2 Plt Count 330 Neut % (Auto) 82 H Lymph % (Auto) 6 L [place] % (Auto) 10 Eos % (Auto) 1 Baso % (Auto) 0 Neut # (Auto) 9.9 H Lymph # (Auto) 0.7 L [place] # (Auto) 1.2 H Eos # (Auto) 0.2 Baso # (Auto) 0.0 Immature Gran # (Auto) 0.09 H Absolute Nucleated RBC 0.00 Immature Gran % 1 H Nucleated RBC % 0 Sodium 137 140 141 Potassium 3.6 3.7 3.9 Chloride 105 107 107 Carbon Dioxide 27.7 27.9 25.9 Anion Gap 4 L 5 L 8 BUN 21 21 19 Creatinine 1.7 H 1.6 H 1.5 H Estim Creat Clear Calc 43.7 L 46.4 L 49.5 L eGFR 36 L 38 L 41 L BUN/Creatinine Ratio 12 13 13 Glucose 316 H 261 H D [address] Glu mg/dL 177 H Hemoglobin A1c 7.8 H Calculated Osmolality 288 291 293 Calcium 14.2 H* 12.6 H D 12.2 H Corrected Calcium 14.2 H* 12.6 H D 12.2 H Phosphorus 2.9 2.2 L 2.1 L Magnesium 1.9 Albumin 4.3 4.1 4.1 Triglycerides 301 H Cholesterol 137 LDL Cholesterol, Calc 52 HDL Cholesterol 25 L Cholesterol/HDL Ratio 5.5 TSH 4.18 Ur Random Creatinine Ur Random Sodium Ur Random Potassium Ur Random Chloride Ur Random Calcium [place] 11/05/24 08:45 WBC RBC Hgb Hct MCV MCH MCHC RDW Std Deviation Plt Count Neut % (Auto) Lymph % (Auto) [place] % (Auto) Eos % (Auto) Baso % (Auto) Neut # (Auto) Lymph # (Auto) [place] # (Auto) Eos # (Auto) Baso # (Auto) Immature Gran # (Auto) Absolute Nucleated RBC Immature Gran % Nucleated RBC % Sodium 138 Potassium 3.8 Chloride 107 Carbon Dioxide 26.3 Anion Gap 5 L BUN 17 Creatinine 1.5 H Estim Creat Clear Calc 49.5 L eGFR 41 L BUN/Creatinine Ratio 11 L Glucose [address] Glu mg/dL Hemoglobin A1c Calculated Osmolality 290 Calcium 11.4 H Corrected Calcium 11.4 H Phosphorus 1.9 L Magnesium Albumin 4.1 Triglycerides Cholesterol LDL Cholesterol, Calc HDL Cholesterol Cholesterol/HDL Ratio TSH Ur Random Creatinine Ur Random Sodium Ur Random Potassium Ur Random Chloride Ur Random Calcium [place] ABG Interpretation ABG results: 11/04/24 10:34 VBG pH 7.39 VBG pCO2 50 VBG pO2 36 VBG Base Excess 4 H Quality Measures Quality Measures none Assessment & Plan Assessment Current Active Medications: Generic Name Dose Route Start Last Admin Trade Name Freq PRN Reason Stop Dose Admin Acetaminophen 1,000 mg 11/04/24 13:13 Acetaminophen 325 Mg Tablet PO 12/04/24 13:12 Q6H PRN Fever >99.9 Dextrose 50 ml 11/04/24 17:14 Dextrose 50%-Water Inj 50 Ml Syringe IV 12/04/24 17:13 Q15MIN PRN BG <50 OR BG <70 & pt unresponsive Enoxaparin Sodium 40 mg 11/06/24 09:00 Enoxaparin Sod Inj 40 Mg/0.4 Ml Syringe SC 11/20/24 08:59 QDAY [facility] Protocol Famotidine 20 mg 11/04/24 21:00 11/05/24 08:55 Famotidine Inj 10 Mg/Ml Vial 2 Ml IVP 12/04/24 20:59 20 mg Q12HR KETAN Administration Fentanyl 25 mcg 11/05/24 09:45 11/05/24 10:10 Fentanyl 25 Mcg Transdermal Patch TOP 11/10/24 09:44 25 mcg Q3D KETAN Administration Protocol Glucagon 1 mg 11/04/24 17:14 Glucagon Inj 1 Mg Vial IM Q15MIN PRN BG <70, and no IV access Ceftriaxone Sodium/Dextrose 1 gm in 50 mls @ 100 mls/hr 11/05/24 17:00 Rocephin/D5w 1gm Iv Premix IV 11/12/24 16:59 QDAY [facility] Azithromycin 500 mg/ Sodium 250 mls @ 250 mls/hr 11/05/24 15:00 Chloride IV 11/12/24 14:59 QDAY [facility] Insulin Glargine 10 unit 11/05/24 21:00 Insulin Glargine (Lantus) 5 Unit/0.05 Ml (Per 5 Units) SC 12/05/24 20:59 HS [facility] Insulin Human Lispro 0 unit 11/05/24 07:30 11/05/24 11:27 Insulin Lispro (Admelog) 1 Unit/0.01 Ml Unit SC 12/05/24 07:29 4 unit AC [facility] Administration Protocol Lidocaine 1 patch 11/04/24 18:23 Lidocaine 5% 1 Patch TOP 12/04/24 18:22 UD PRN PAIN Ondansetron HCl 4 mg 11/04/24 13:23 Ondansetron Inj 2 Mg/Ml Inj 2 Ml IVP 12/04/24 13:22 Q6H PRN NAUSEA OR VOMITING Protocol Plan #Hypocalcemia?severe #Acute kidney injury Patient takes lithium, possible lithium induced hypercalcemia. Also takes vitamin D supplements. In the ED patient received 1 dose of pamidronate, IV furosemide 40 mg and 1 L IV fluid bolus ? Serum PTH levels WNL ? Urine calcium, urine creatinine, ratio 0.24, ruled out [facility] ? Serum vitamin D levels, WNL ? Aggressive IV fluids and strict input output ? Calcitonin discontinued #Concern for meningioma CT head shows 7 mm meningioma, recommended MRI with stroke protocol. ? Follow MRI findings #Abdominal pain Possibly related to hypercalcemia, x-ray abdomen showed large amount of stool throughout colon. ? Bowel regimen # History of psychiatric disorders, bipolar disorder, depression, PTSD ? Follow lithium levels ? Avoid nephrotoxic medications # History of asthma ?Management per primary team Plan of care discussed with attending Dr. Bridget Corona PGY 2 Attending Provider Attestation/Addendum Patient seen and examined with resident physician Dr. Corona. Note reviewed, agree with findings and recommendations. Patient with altered mental status, SHAY, hypercalcemia. Agree with continuing on IV fluids. Patient downgraded to medical floor. She is more alert and awake. Calcium levels markedly improved. Patient on multiple psychiatric medications.
[2024-11-05] MEDS: AZITHROMYCIN INJ 500 MG in SODIUM CHLORIDE 0.9% 250 ML 250 ML 250 MG IV (16:01)
--- NOTE | 2024-11-05 16:03 | PC.SS ---
SNF referral submitted on [facility]. Awaiting responses.
--- NOTE | 2024-11-05 16:09 | PC.SS ---
PASSR completed. Patient meets Level II criteria. PASSR follow up is pending.
[2024-11-05] MEDS: cefTRIAXone/D5w 1gm IV premix 1 GM/50 ML BAG IV (17:23)
[2024-11-05] MEDS: SODIUM CHLORIDE 0.9% 1000 ML 1,000 ML 90 ML IV (17:27)
--- NOTE | 2024-11-05 19:00 | PC.NURSE ---
Report received, pt resting in bed, restraints removed by day RN, pt needs frequent redirecting, avasure placed to monitor pt from pulling at IV lines and tele box.
[2024-11-05] MEDS: INSULIN GLARGINE (Lantus) 5 UNIT/0.05 ML (PER 5 UNITS) 10 UNIT SC (21:01)
--- NOTE | 2024-11-05 22:08 | PD.NEUROCONS ---
History of Present Illness Data of Consult Requesting Physician: Xavier Petit MD Primary Care Provider: Scott Lara MD Consult Narrative History of present illness: Ms. Lawrence is a 53-year-old female with DM, HTN and nonepileptic seizures got admitted with hypercalcemia on Monday when she came in with altered mental status. Patient was noted to have slurred speech, which progressed to difficulty finding words and worsening confusion over 24 hours prior. As per son present at bedside, patient has never had the symptoms in the past. She is ambulatory at baseline. Per son, she is fairly compliant with her medications, recently saw her dramatic coach Dr. Byrne and he took her off of antihypertensives from low BP. Workup: vitals: showed blood pressure 159/84, HR 90s oxygen saturations 92-96% on 2 L oxygen via nasal cannula. Labs: WBC 12.1, SHAY: creatinine 1.9 and GFR 31 and severe hypercalcemia 17.3 corrected calcium. Parathyroid hormone was low at 16.5. Urinalysis fairly within normal limits. Urine lytes showed elevated calcium at 30 (normal 2?18). Imaging, head CT was remarkable for 7 mm calcified right frontal meningioma. EKG shows sinus rhythm and nonspecific T wave abnormality, possible right ventricular hypertrophy. X-ray of the abdomen showed abundant stool throughout the colon. Patient was given 1 L IVF bolus and pamidronate x 1. Patient was admitted to the ICU for close monitoring and management of severe hypercalcemia. Neurology was consulted for evaluation of abnormal CT head with calcified meningioma. cc:: cc: Xavier Petit MD Review of Systems Review of Systems Systems Reviewed: All systems reviewed, normal except as documented Past Medical History Past Medical History NEUROLOGIC: Positive Neurological Disorders, Seizures, Spina Bifida, Migraine and Spinal Cord Injury CARDIAC: Positive Cardiac Disorders, Myocardial Infarction, Cardiac Arrhythmia, Angina, Hypercholesterolemia, Congestive Heart Failure, Edema and Hypertension RESPIRATORY: Positive Respiratory Disorders, Chronic Obstructive Pulmonary Disease (COPD), Asthma and Pneumonia GASTROINTESTINAL: Positive Gastrointestinal Disorders, Pancreatitis, Hiatal Hernia and Obesity; Negative Hepatitis GENITOURINARY: Positive Renal Disease; Negative Genitourinary Disorders REPRODUCTIVE: Positive Previous Pregnancies MUSCULOSKELETAL: Positive Musculoskeletal Disorders, Arthritis, Fibromyalgia and Fractures ENT: Positive Cataracts ENDOCRINE: Positive Endocrine Disorders, Diabetes Mellitus Type 2 (Glucose is 257) and Hypothyroidism; Negative Diabetes Mellitus Type 1 HEMATOLOGIC: Positive Blood Disorders and Anemia; Negative Sickle Cell Disease PSYCHO/SOCIAL: Positive Psychiatric Problems, Recreational Drug Use, Bipolar Disorder, Depression, Anxiety and Post Traumatic Stress Disorder; Negative Self-Mutilation or Depression OTHER HISTORY: Positive Hospitalization and Blood Transfusions; Negative Autoimmune Disease, Shingles, Falls, Blood Transfusion Reaction, Anesthesia Reactions, Chemotherapy, Radiation Therapy, MRSA, Chicken Pox, Measles, Mumps or Cancer Family History FAMILY HISTORY: Positive Family Cardiac Disorders and Family Surgery; Negative Family Psychiatric Problems, Family Respiratory Disorders, Family Gastrointestinal Problems, Family Cancer or Family Anesthesia Reaction Surgical History SURGICAL: Positive Hysterectomy, Tubal Ligation and Section; Negative Cardiac Surgery, Endocrine Surgery or Abdominal Surgery Social History SMOKING STATUS: Never smoker SUBSTANCE USE: marijuana Meds Home Medications and Allergies Home Medications ?Medication ?Instructions ?Recorded ?Confirmed ?Type lithium carbonate 300 mg 300 mg PO BID ##0 04/22/17 11/05/24 History tablet,extended release montelukast 10 mg tablet 10 mg PO QDAY #0 tabs 05/31/17 11/05/24 History (Singulair) dexlansoprazole 60 mg 60 mg PO DAILY 11/18/20 11/05/24 History capsule,biphase delayed release (Dexilant) pregabalin 75 mg capsule 75 mg PO TID PRN Pain 11/18/20 11/05/24 History risperidone 3 mg tablet 6 mg PO HS 11/18/20 11/05/24 History atorvastatin 40 mg tablet 40 mg PO DAILY 12/08/21 11/05/24 History ropinirole 5 mg tablet 5 mg PO HS 12/08/21 11/05/24 History tizanidine 4 mg tablet 4 mg PO BID 12/08/21 11/05/24 History levothyroxine 50 mcg tablet 50 mcg PO DAILY 12/09/21 11/05/24 History naloxegol 25 mg tablet (Movantik) 25 mg PO DAILY 12/09/21 11/05/24 History paroxetine HCl 40 mg tablet 40 mg PO HS 05/13/22 11/05/24 History buspirone 15 mg tablet 15 mg PO TID 06/21/22 11/05/24 History docusate sodium 100 mg capsule 100 mg PO TID 06/21/22 11/05/24 History insulin glargine 100 unit/mL (3 36 unit subcut QPM 06/21/22 11/05/24 History mL) subcutaneous pen (Basaglar KwikPen U-100 Insulin) lamotrigine 100 mg tablet 150 mg PO BID 06/21/22 11/05/24 History metformin 500 mg tablet 500 mg PO BID 06/21/22 11/05/24 History quetiapine 300 mg tablet 300 mg PO HS 06/21/22 11/05/24 History trazodone 150 mg tablet 375 mg PO HS 06/21/22 11/05/24 History amitriptyline 50 mg tablet 50 mg PO HS 11/05/24 11/05/24 History calcium 600 mg (as 1 tab PO BID 11/05/24 11/05/24 History carbonate)-vitamin D3 10 mcg (400 unit) tablet clopidogrel 75 mg tablet 75 mg PO DAILY 11/05/24 11/05/24 History dicyclomine 20 mg tablet 20 mg PO TIDACHS 11/05/24 11/05/24 History diphenhydramine HCl 50 mg capsule 50 mg PO HS PRN allergic reaction 11/05/24 11/05/24 History (Banophen) famotidine 20 mg tablet 20 mg PO HS 11/05/24 11/05/24 History fentanyl 50 mcg/hr transdermal 50 mcg topical 3XD PRN back pain 11/05/24 11/05/24 History patch ferrous sulfate 325 mg (65 mg 325 mg PO BID 11/05/24 11/05/24 History iron) tablet (FeroSul) furosemide 20 mg tablet 20 mg PO QDAY 11/05/24 11/05/24 History insulin aspart U-100 100 unit/mL subcut 11/05/24 History (3 mL) subcutaneous pen insulin glargine 100 unit/mL (3 36 unit subcut QPM 11/05/24 11/05/24 History mL) subcutaneous pen (Lantus Solostar U-100 Insulin) lamotrigine 150 mg tablet 150 mg PO HS 11/05/24 11/05/24 History losartan 100 mg tablet 100 mg PO DAILY 11/05/24 11/05/24 History lubiprostone 24 mcg capsule 24 mcg PO BID 11/05/24 11/05/24 History mirtazapine 7.5 mg tablet 7.5 mg PO HS 11/05/24 11/05/24 History potassium chloride 10 mEq 10 meq PO HS 11/05/24 11/05/24 History capsule,extended release quetiapine 200 mg tablet 200 mg PO HS 11/05/24 11/05/24 History semaglutide 0.25 mg or 0.5 mg (2 0.25 mg subcut QWEEK 11/05/24 11/05/24 History mg/1.5 mL) subcutaneous pen injector (Ozempic) Allergies Allergy/AdvReac Type Severity Reaction Status Date / Time chocolate flavor Allergy Severe BLISTERS Verified 11/04/24 10:00 IN MOUTH NSAIDS (Non-Steroidal Allergy Severe Nausea Verified 11/04/24 10:00 Anti-Inflamma gold Au 198 Allergy Intermediate RASH Verified 11/04/24 10:00 ibuprofen Allergy Intermediate NAUSEA AND Verified 11/04/24 10:00 VOMITING promethazine Allergy Mild RASH/SOB Verified 11/04/24 10:00 ketorolac AdvReac Unknown NAUSEA Verified 11/04/24 10:00 VOMITING, STOMACH UPSET Exam - Neurology Vital Signs Temp Pulse Resp BP Pulse Ox O2 Del Method O2 Flow Rate 97.3 F 93 20 167/97 H 97 Nasal Cannula 3 11/05/24 20:39 11/05/24 20:39 11/05/24 20:39 11/05/24 20:39 11/05/24 20:39 11/05/24 20:39 11/05/24 20:39 Narrative Exam GENERAL APPEARANCE: Well developed, obese built female in no acute distress. HEENT: Normocephalic, atraumatic, extraocular movements intact. Pupils: Equal reacting to light and accommodation NECK: Supple, no JVD or bruits. CARDIOVASULAR: Heart: S1, S2 heard, regular without S3-S4 or murmur no rubs or gallops. LUNGS/CHEST: Clear to auscultation bilaterally. No rails, rhonchi, or wheezing. Normal inspection. ABDOMEN: Soft, nontender, with normal bowel sounds. No pulsatile masses. No rebound, rigidity, or guarding. Normal inspection and palpation. EXTREMITIES: Normal inspection and palpation. No edema, clubbing or cyanosis. SKIN: Warm and dry without rashes. Normal inspection. MUSCULOSKELETAL: No cervical, thoracic, lumbar or midline bony tenderness. Normal inspection. NEURO: Alert, awake and oriented x3. Cranial nerves: II through XII grossly intact. Speech and language: Normal with no dysarthria or dysphasia. Motor system: Tone and bulk: Normal: Strength: 5 out of 5 in all 4 extremities; No pronator drift noted. Deep tendon reflexes: 2+ bilaterally symmetrical. Plantar reflex: Downgoing bilaterally. Sensory system: Intact to all modalities of sensation bilaterally. Coordination: Intact to kelwyl-[id number]-rgmyy and plgw-[id number]-[id number] test bilaterally. No ataxia, no dysmetria, or dysdiadochokinesia noted. No intention tremors noted. Gait: not tested. No signs of meningeal irritation noted. PSYCHIATRIC: Normal mood and affect. Results Labs 11/05/24 04:50 11/05/24 08:45 Labs: Short CBC 11/05/24 Range/Units 04:50 WBC 12.1 H (3.6-11.0) Thou/mm3 Hgb 13.5 (12.0-16.0) g/dL Hct 39.6 (36.0-46.0) % Plt Count 330 (140-440) Thou/mm3 BMP 11/04/24 11/05/24 11/05/24 21:30 01:30 04:50 Sodium 137 140 141 Potassium 3.6 3.7 3.9 Chloride 105 107 107 Carbon Dioxide 27.7 27.9 25.9 BUN 21 21 19 Creatinine 1.7 H 1.6 H 1.5 H Glucose 316 H 261 H D 272 H Calcium 14.2 H* 12.6 H D 12.2 H 11/05/24 08:45 Sodium 138 Potassium 3.8 Chloride 107 Carbon Dioxide 26.3 BUN 17 Creatinine 1.5 H Glucose 328 H D Calcium 11.4 H Liver Function 11/04/24 11/05/24 11/05/24 Range/Units 21:30 01:30 04:50 Albumin 4.3 4.1 4.1 (3.5-5.0) gm/dL 11/05/24 Range/Units 08:45 Albumin 4.1 (3.5-5.0) gm/dL ABG Interpretation ABG results: 11/04/24 10:34 VBG pH 7.39 VBG pCO2 50 VBG pO2 36 VBG Base Excess 4 H Assessment & Plan Assessment and plan (1) Altered mental status: Status: Resolved (2) Meningioma: Status: Chronic Assessment and plan: calcified meningioma from the CT head: noted in 2023 study as well. incidental tumor, not causing any symptoms. No need for any intervention/follow up imaging study. (3) Hypercalcemia: Status: Acute Assessment and plan: trending down (4) Diabetes mellitus: Status: Chronic Assessment and plan: needs strict control.
[2024-11-06] VITALS (12 sets, daily range): BP systolic 127–154; BP diastolic 74–100; PULSE 74–96; RESP 16–98; TEMP 36–36.7; O2SAT 92–98; BMI 11.0
--- NOTE | 2024-11-06 00:12 | PC.NURSE ---
Pt alarm sounded up to use restroom, educated pt has purwick, after multiple explanations pt verbalized understanding, sister remains at bedside.
[2024-11-06 05:10] LABS: Basophils % (Auto) 0 % (0-2.5); Eosinophils # (Auto) 0.2 Thou/mm3 (0.0-0.5); Eosinophils % (Auto) 3 % (0-10); Hematocrit 36.6 % (36.0-46.0); Hemoglobin 12.3 g/dL (12.0-16.0); Immature Granulocytes % (Auto) 1 % (0-0); Immature Granulocytes Auto 0.04 Thou/mm3 (0.00-0.00); Lymphocytes # (Auto) 0.8 Thou/mm3 (1.0-4.8); Lymphocytes % (Auto) 10 % (10-50); Mean Corpuscular HGB Conc 33.6 g/dl (31.0-37.0); Mean Corpuscular Hemoglobin 30.1 pg (25.0-35.0); Mean Corpuscular Volume 90 fL (80-100); Monocytes # (Auto) 0.9 Thou/mm3 (0.0-0.8); Monocytes % (Auto) 12 % (0-12); Neutrophils # (Auto) 5.6 Thou/mm3 (1.8-7.7); Neutrophils % (Auto) 75 % (37-80); Nucleated Red Blood Cell % 0 /100 WBC (0); Platelet Count 271 Thou/mm3 (140-440); RDW Standard Deviation 43.7 fL (36.4-46.3); Red Blood Count 4.08 Miln/mm3 (4.00-5.20); White Blood Count 7.6 Thou/mm3 (3.6-11.0)
[2024-11-06] MEDS: SODIUM CHLORIDE 0.9% 1000 ML 1,000 ML 90 ML IV (05:34)
[2024-11-06 05:48] LABS: Alanine Aminotransferase 12 U/L (10-49); Albumin/Globulin Ratio 1.9 (1.2-2.2); Alkaline Phosphatase 81 U/L (46-116); Anion Gap 7 (7-16); Aspartate Amino Transferase 19 U/L (0-34); BUN/Creatinine Ratio 12 Ratio (12-20); Bilirubin,Total 0.2 mg/dL (0.3-1.2); Blood Urea Nitrogen 15 mg/dL (9-23); Calcium 9.8 mg/dL (8.3-10.6); Calcium (Corrected) 9.8 mg/dL (8.5-10.1); Carbon Dioxide 25.9 mMol/L (20.0-31.0); Chloride 104 mMol/L (98-107); Creatinine (Component) 1.3 mg/dL (0.6-1.3); Estimated Creatinine Clearance 57.1 mL/min (>60); Globulin 2.1 gm/dL (2.3-3.5); Glucose 276 mg/dL (74-106); Magnesium 1.3 mg/dL (1.6-2.6); Osmolality,Calculated 284 (275-295); Potassium 3.4 mMol/L (3.4-5.1); Sodium 137 mMol/L (136-145); Total Protein 6.1 gm/dL (5.7-8.2); eGFR 49 See Note
[2024-11-06] MEDS: INSULIN LISPRO (AdmeLOG) 1 UNIT/0.01 ML UNIT SC ×4 (07:28→20:16)
[2024-11-06 09:01] LABS: Lithium 1.51 mEq/L (1.00-1.20)
[2024-11-06] MEDS: POTASSIUM CHLORIDE 20 mEq TABCR 40 MEQ PO (09:07)
[2024-11-06] MEDS: INSULIN LISPRO (AdmeLOG) 1 UNIT/0.01 ML UNIT 3 UNIT SC ×3 (09:07→16:46)
[2024-11-06] MEDS: NAPH,KPH MBDB 1 PACKET (1.5 GM) 2 PACKET PO (09:08)
[2024-11-06] MEDS: LOSARTAN POTASSIUM 25 MG TABLET 100 MG PO (09:08)
[2024-11-06] MEDS: cefTRIAXone/D5w 1gm IV premix 1 GM/50 ML BAG IV (09:09)
[2024-11-06] MEDS: ENOXAPARIN SOD INJ 40 MG/0.4 ML SYRINGE SC (09:09)
[2024-11-06] MEDS: FAMOTIDINE INJ 10 MG/ML VIAL 2 ML 20 MG IVP ×2 (09:09→20:18)
--- NOTE | 2024-11-06 09:26 | ESPR_ITS ---
Documentation for date of: 11/06/24 Subjective Subjective Interval history: Limited HPI due to mental status, most of the information gathered from EMR chart review and patient's son Michael. The patient is a 53-year-old female with a past medical history of bipolar disorder, depression, PTSD, and CHF, COPD, hypertension, hyperlipidemia, asthma and diabetes mellitus who was brought into the emergency room due to chief complaint of altered mental status and aphasia. Per son, patient recently started Ozempic a couple weeks ago, and has been feeling sick to her stomach since then. Feels nauseous and has not been able to eat solid food, but states she is able to drink adequate fluids. Reported she has had diarrhea for most of the last month, after she ran out of her opioid medications and fentanyl patch, but since refilling her prescriptions, diarrhea has resolved. Denied fever, shortness of breath, but reported that patient frequently complains of chest discomfort, also reported she is being followed by research laboratory specialist Dr. Byrne. Per son, patient has no past medical history of cancer, unsure about Gold Au 198 allergy. In the ER, initial vitals blood pressure 123/67, pulse 99/min, Tmax 98.2F, saturating 97% on 4 L nasal cannula O2, initial labs pertinent for mild leukocytosis WBC 12.1, hemoglobin 14.4, platelets 329, CMP shows marked hypercalcemia and SHAY. Sodium 135, potassium 3.9, chloride 100, carbon oxide 30.2, BUN 25, creatinine 1.9, glucose 305, calcium corrected 17.3, magnesium 2.1. U tox positive for fentanyl and marijuana, urinalysis unremarkable for UTI. CT head shows suspicion for 7 mm right frontal meningioma, recommended MRI for follow-up. EKG shows sinus rhythm and nonspecific T wave abnormality, possible right ventricular hypertrophy. 11/05/2024 the patient is evaluated at bedside, noted improvement in mental status, serum calcium improved to 12.2, serum sodium 141, potassium 3.9, BUN 19, creatinine 1.5. PTH levels within normal limit, 16.5, 2 5 hydroxy vitamin D3 in, 29.1, urine calcium to creatinine ratio 0.24, ruled out FHHC, lithium levels 0.60 continue with IV fluids, hold off on further administration of calcitonin. 11/06/2024, patient evaluated bedside, at baseline mental status alert and oriented x 3, complaining of abdominal discomfort localized to the epigastric region. 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 Recommend holding off on further calcitonin or IV fluids. Likely secondary to supplemental intake of calcium. Exam Vital Signs Temp Pulse Resp BP Pulse Ox O2 Del Method O2 Flow Rate 97.0 F 88 18 142/85 H 98 Room Air 3 11/06/24 08:00 11/06/24 09:08 11/06/24 08:00 11/06/24 09:08 11/06/24 08:00 11/06/24 08:00 11/06/24 04:00 Narrative Exam General: Alert and oriented x 3, able to move all 4 extremities. Skin: Intact, freckles all over, no cyanosis or edema noted. HEENT: Atraumatic/normocephalic, JULIA, neck supple Heart: RRR, S1 and S2 without clicks or murmurs Lungs: Clear on auscultation bilaterally, no difficulty breathing Abdomen: Mild abdominal tenderness right and left lower quadrants. Bowel sounds present . Vascular: Peripheral pulses palpable Neuro: No focal neurological deficits noted. Objective Labs 11/07/24 05:12 11/07/24 05:12 Labs: Laboratory Results - last 24 hr 11/05/24 11/06/24 08:45 04:52 WBC 7.6 RBC 4.08 Hgb 12.3 Hct 36.6 MCV 90 MCH 30.1 MCHC 33.6 RDW Std Deviation 43.7 Plt Count 271 D Neut % (Auto) 75 Lymph % (Auto) 10 [place] % (Auto) 12 Eos % (Auto) 3 Baso % (Auto) 0 Neut # (Auto) 5.6 Lymph # (Auto) 0.8 L [place] # (Auto) 0.9 H Eos # (Auto) 0.2 Baso # (Auto) 0.0 Immature Gran # (Auto) 0.04 H Absolute Nucleated RBC 0.00 Immature Gran % 1 H Nucleated RBC % 0 Sodium 138 137 Potassium 3.8 3.4 Chloride 107 104 Carbon Dioxide 26.3 25.9 Anion Gap 5 L 7 BUN 17 15 Creatinine 1.5 H 1.3 Estim Creat Clear Calc 49.5 L 57.1 L eGFR 41 L 49 L BUN/Creatinine Ratio 11 L 12 Glucose 328 H D 276 H D Calculated Osmolality 290 284 Calcium 11.4 H 9.8 D Corrected Calcium 11.4 H 9.8 D Phosphorus 1.9 L Magnesium 1.3 L Total Bilirubin 0.2 L AST 19 ALT 12 Alkaline Phosphatase 81 Total Protein 6.1 Albumin 4.1 4.0 Globulin 2.1 L Albumin/Globulin Ratio 1.9 [place] 1.51 H ABG Interpretation ABG results: 11/04/24 10:34 VBG pH 7.39 VBG pCO2 50 VBG pO2 36 VBG Base Excess 4 H Quality Measures Quality Measures none Assessment & Plan Assessment Current Active Medications: Generic Name Dose Route Start Last Admin Trade Name Freq PRN Reason Stop Dose Admin Acetaminophen 1,000 mg 11/04/24 13:13 Acetaminophen 325 Mg Tablet PO 12/04/24 13:12 Q6H PRN Fever >99.9 Dextrose 50 ml 11/04/24 17:14 Dextrose 50%-Water Inj 50 Ml Syringe IV 12/04/24 17:13 Q15MIN PRN BG <50 OR BG <70 & pt unresponsive Enoxaparin Sodium 40 mg 11/06/24 09:00 11/06/24 09:09 Enoxaparin Sod Inj 40 Mg/0.4 Ml Syringe SC 11/20/24 08:59 40 mg QDAY KETAN Administration Protocol Famotidine 20 mg 11/04/24 21:00 11/06/24 09:09 Famotidine Inj 10 Mg/Ml Vial 2 Ml IVP 12/04/24 20:59 20 mg Q12HR KETAN Administration Fentanyl 25 mcg 11/05/24 09:45 11/05/24 10:10 Fentanyl 25 Mcg Transdermal Patch TOP 11/10/24 09:44 25 mcg Q3D KETAN Administration Protocol Glucagon 1 mg 11/04/24 17:14 Glucagon Inj 1 Mg Vial IM Q15MIN PRN BG <70, and no IV access Ceftriaxone Sodium/Dextrose 1 gm in 50 mls @ 100 mls/hr 11/05/24 17:00 11/06/24 09:09 Rocephin/D5w 1gm Iv Premix IV 11/12/24 16:59 100 mls/hr QDAY KETAN Administration Azithromycin 500 mg/ Sodium 250 mls @ 250 mls/hr 11/05/24 15:00 11/05/24 16:01 Chloride IV 11/12/24 14:59 250 mls/hr QDAY KETAN Administration Sodium Chloride 1,000 mls @ 90 mls/hr 11/05/24 15:22 11/06/24 05:34 Ns IV 12/05/24 15:21 90 mls/hr .[id number] KETAN Administration Magnesium Sulfate 4 gm in 50 mls @ 12.5 mls/hr 11/06/24 08:05 Magnesium Sulfate Ivpb IV 11/06/24 12:04 X1 ONE Insulin Glargine 16 unit 11/06/24 21:00 Insulin Glargine (Lantus) 5 Unit/0.05 Ml (Per 5 Units) SC 12/06/24 20:59 HS KETAN Insulin Human Lispro 3 unit 11/06/24 08:00 11/06/24 09:07 Insulin Lispro (Admelog) 1 Unit/0.01 Ml Unit SC 12/06/24 07:59 3 unit TIDWM KETAN Administration Insulin Human Lispro 0 unit 11/06/24 11:30 Insulin Lispro (Admelog) 1 Unit/0.01 Ml Unit ME 12/06/24 11:29 ACHS KETAN Protocol Lidocaine 1 patch 11/04/24 18:23 Lidocaine 5% 1 Patch TOP 12/04/24 18:22 UD PRN PAIN Protocol Losartan Potassium 100 mg 11/06/24 09:00 11/06/24 09:08 Losartan Potassium 25 Mg Tablet PO 12/06/24 08:59 100 mg DAILY KETAN Administration Ondansetron HCl 4 mg 11/04/24 13:23 Ondansetron Inj 2 Mg/Ml Inj 2 Ml IVP 12/04/24 13:22 Q6H PRN NAUSEA OR VOMITING Protocol Plan #Hypocalcemia?severe #Acute kidney injury?improving Patient takes lithium, possible lithium induced hypercalcemia. Also takes vitamin D supplements. In the ED patient received 1 dose of pamidronate, IV furosemide 40 mg and 1 L IV fluid bolus ? Serum PTH levels WNL ? Urine calcium, urine creatinine, ratio 0.24, ruled out FHHC ? Serum vitamin D levels, WNL 11/06/2024 complaining of abdominal discomfort localized to the epigastric region. 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 Recommend holding off on further calcitonin or IV fluids. Likely secondary to supplemental intake of calcium. #Concern for meningioma CT head shows 7 mm meningioma, recommended MRI with stroke protocol. ? Follow MRI findings #Abdominal pain Possibly related to hypercalcemia, x-ray abdomen showed large amount of stool throughout colon. ? Bowel regimen # History of psychiatric disorders, bipolar disorder, depression, PTSD ? Follow lithium levels ? Avoid nephrotoxic medications # History of asthma ?Management per primary team Plan of care discussed with attending Dr. Bridget Corona PGY 2 Attending Provider Attestation/Addendum Patient seen and examined with resident physician Dr. Corona. Note reviewed, agree with findings and recommendations. Patient with altered mental status, SHAY, hypercalcemia. Agree with continuing on IV fluids. Patient downgraded to medical floor. She is more alert and awake. Calcium levels markedly improved. Patient on multiple psychiatric medications.
[2024-11-06] MEDS: AZITHROMYCIN INJ 500 MG in SODIUM CHLORIDE 0.9% 250 ML 250 ML 250 MG IV (09:51)
[2024-11-06] MEDS: Magnesium Sulfate 4 GM Ivpb 4 GM/50 ML BAG IV (09:54)
--- NOTE | 2024-11-06 10:13 | PC.SS ---
[employer] fielded phone call from [employer] staff, Victoriano Xie. [employer] Level II case to be closed. Online closure is pending.
[2024-11-06] MEDS: INSULIN GLARGINE (Lantus) 5 UNIT/0.05 ML (PER 5 UNITS) 10 UNIT SC ×2 (11:13→20:16)
--- NOTE | 2024-11-06 11:25 | PC.SS ---
Addendum entered by Radha Velázquez 11/06/24 11:31: SS follow up note; SS submitted authorization to [employer], awaiting response. Original Note: SS follow up note; SS followed up with patient's son, Avery in regards to SNF choice, patient's son reported he would want patient to discharge to [facility]. SS contacted Yady and informed her that SS would be submitting for auth today with [employer]. Patient will discharge possibly tomorrow, her electrolytes are being monitored.
--- NOTE | 2024-11-06 13:12 | ESPR_ITS ---
Documentation for date of: 11/06/24 Subjective Subjective Interval history: Patient examined at bedside. No events overnight. Mentation has improved with aphasia resolved. Blood sugars 300 this morning. Increase glargine to 10 units BID and add 3 lispro scheduled 3 times daily with meals. Uptitrate for goal 140?180. BP 154/100, resumed home dose losartan. Will monitor creatinine. Leukocytosis resolved WBC 7.6, SHAY resovled with Cr 1.3. Repleted potassium, Magnesium, and phosphate. Will continue IV fluids in setting of hypercalcemia. Today calcium is 9.8. Neurology was consulted for meningioma. Appears stable compared to last year CT head scan. Not causing any symptoms so no need for any intervention/follow up imaging study. Continue antibiotics for pneumonia. Anticipate discharge next 24hrs if mentation improves. Exam Vital Signs Temp Pulse Resp BP Pulse Ox O2 Del Method O2 Flow Rate 96.8 F 88 19 127/74 92 L Room Air 3 11/06/24 12:00 11/06/24 12:11/06/24 12:11/06/24 12:11/06/24 12:11/06/24 12:11/06/24 04:00 Narrative Exam General: Middle age female, obese, No acute distress HEENT: NCAT, No JVD noted. Mucosa moist. Pupils are equal and reactive to light bilaterally Cardiovascular: Normal S1 and S2. Regular rate and rhythm. Respiratory: Lungs are clear to auscultation bilaterally. No wheezing or crackles heard Abdomen: Soft, nontender, not distended,hypoactive bowel sounds Skin: Warm to touch, dry, no rashes noted Musculoskeletal: No gross injuries. Able to move all 4 extremities. No pitting edema Neuro: Alert and oriented x3. Objective Labs 11/06/24 04:52 11/06/24 04:52 Labs: Laboratory Results - last 24 hr 11/06/24 04:52 WBC 7.6 RBC 4.08 Hgb 12.3 Hct 36.6 MCV 90 MCH 30.1 MCHC 33.6 RDW Std Deviation 43.7 Plt Count 271 D Neut % (Auto) 75 Lymph % (Auto) 10 [place] % (Auto) 12 Eos % (Auto) 3 Baso % (Auto) 0 Neut # (Auto) 5.6 Lymph # (Auto) 0.8 L [place] # (Auto) 0.9 H Eos # (Auto) 0.2 Baso # (Auto) 0.0 Immature Gran # (Auto) 0.04 H Absolute Nucleated RBC 0.00 Immature Gran % 1 H Nucleated RBC % 0 Sodium 137 Potassium 3.4 Chloride 104 Carbon Dioxide 25.9 Anion Gap 7 BUN 15 Creatinine 1.3 Estim Creat Clear Calc 57.1 L eGFR 49 L BUN/Creatinine Ratio 12 Glucose 276 H D Calculated Osmolality 284 Calcium 9.8 D Corrected Calcium 9.8 D Magnesium 1.3 L Total Bilirubin 0.2 L AST 19 ALT 12 Alkaline Phosphatase 81 Total Protein 6.1 Albumin 4.0 Globulin 2.1 L Albumin/Globulin Ratio 1.9 [place] 1.51 H ABG Interpretation ABG results: 11/04/24 10:34 VBG pH 7.39 VBG pCO2 50 VBG pO2 36 VBG Base Excess 4 H Quality Measures Quality Measures none Assessment & Plan Assessment Current Active Medications: Generic Name Dose Route Start Last Admin Trade Name Freq PRN Reason Stop Dose Admin Acetaminophen 1,000 mg 11/04/24 13:13 Acetaminophen 325 Mg Tablet PO 12/04/24 13:12 Q6H PRN Fever >99.9 Dextrose 50 ml 11/04/24 17:14 Dextrose 50%-Water Inj 50 Ml Syringe IV 12/04/24 17:13 Q15MIN PRN BG <50 OR BG <70 & pt unresponsive Enoxaparin Sodium 40 mg 11/06/24 09:00 11/06/24 09:09 Enoxaparin Sod Inj 40 Mg/0.4 Ml Syringe SC 11/20/24 08:59 40 mg QDAY KETAN Administration Protocol Famotidine 20 mg 11/04/24 21:00 11/06/24 09:09 Famotidine Inj 10 Mg/Ml Vial 2 Ml IVP 12/04/24 20:59 20 mg Q12HR KETAN Administration Fentanyl 25 mcg 11/05/24 09:45 11/05/24 10:10 Fentanyl 25 Mcg Transdermal Patch TOP 11/10/24 09:44 25 mcg Q3D KETAN Administration Protocol Glucagon 1 mg 11/04/24 17:14 Glucagon Inj 1 Mg Vial IM Q15MIN PRN BG <70, and no IV access Ceftriaxone Sodium/Dextrose 1 gm in 50 mls @ 100 mls/hr 11/05/24 17:00 11/06/24 09:09 Rocephin/D5w 1gm Iv Premix IV 11/12/24 16:59 100 mls/hr QDAY KETAN Administration Azithromycin 500 mg/ Sodium 250 mls @ 250 mls/hr 11/05/24 15:00 11/06/24 09:51 Chloride IV 11/12/24 14:59 250 mls/hr QDAY KETAN Administration Sodium Chloride 1,000 mls @ 90 mls/hr 11/05/24 15:22 11/06/24 05:34 Ns IV 12/05/24 15:21 90 mls/hr .Q11H7M KETAN Administration Insulin Glargine 10 unit 11/06/24 10:00 11/06/24 11:13 Insulin Glargine (Lantus) 5 Unit/0.05 Ml (Per 5 Units) SC 12/06/24 09:59 10 unit BID KETAN Administration Insulin Human Lispro 3 unit 11/06/24 08:00 11/06/24 11:14 Insulin Lispro (Admelog) 1 Unit/0.01 Ml Unit SC 12/06/24 07:59 3 unit TIDWM KETAN Administration Insulin Human Lispro 0 unit 11/06/24 11:30 11/06/24 11:14 Insulin Lispro (Admelog) 1 Unit/0.01 Ml Unit SC 12/06/24 11:29 5 unit ACHS KETAN Administration Protocol Lidocaine 1 patch 11/04/24 18:23 Lidocaine 5% 1 Patch TOP 12/04/24 18:22 UD PRN PAIN Protocol Losartan Potassium 100 mg 11/06/24 09:00 11/06/24 09:08 Losartan Potassium 25 Mg Tablet PO 12/06/24 08:59 100 mg DAILY KETAN Administration Ondansetron HCl 4 mg 11/04/24 13:23 Ondansetron Inj 2 Mg/Ml Inj 2 Ml IVP 12/04/24 13:22 Q6H PRN NAUSEA OR VOMITING Protocol Plan Leonidas Lawrence is a 53-year-old female PMH of hypertension, insulin-dependent type 2 diabetes, COPD, marijuana smoker, chronic back pain, fibromyalgia who presented to the ED on 11/04 due to altered mental status. The son is main caregiver and noticed that she had soiled herself and had slurred speech that was not making sense. In ED labs showed severe hypercalcemia of 17.3, PTH low 16.5. Admitted to ICU for close monitoring of cardiac dysfunction. #Severe hypercalcemia - resolving DDx: Dehydration, vitamin overuse, malignancy Ca: 17.3 corrected calcium --> 13.8 -->12.2-->9.8 Parathyroid hormone : (low) 16.5. Urinalysis fairly within normal limits. Urine lytes showed elevated calcium at 30 (normal 2?18). Patient takes Calcium and Vit D supplements twice a day + also takes (TUMS) Calcium Carb frequently--discontinue at discharge. ? Nephrology Dr Gill consulted, appreciate rec ? Has completed calcitonin doses -IV fluids -daily CMP #Meningioma CT head shows 7 mm meningioma consitent from doc one year ago. -consulted neuro Dr. Medeiros, appreciate recs -Not causing any symptoms so no need for any intervention/follow up imaging study. #Insulin dependent type 2 diabetes On admission initial glucose 300. Last A1c 7.8 on this admission. -Held home medications -Bedside blood glucose checks ACHS -glargine 10 units BID -3 lispro TIDWM -Insulin lispro sliding scale -Carb consistent low diet #CAP #COPD Chest x-ray showed diffuse bilateral pulmonary consolidation. ? Started on ceftriaxone 1 g IV daily on [11/05? ? Started on azithromycin 500 Mg IV daily on [11/05? #Chronic back pain Hx of chronic opiod use home dose oxycodone 20 Mg p.o. Q6 hourly as needed and fentanyl patch 50 mcg daily every 72 hours. Patient had lumbar spine fusion performed a few years ago, is ambulatory w/o assistance at baseline. Medication use hx: ropinirole, quetiapine, pregabalin, paroxetine, risperidone at home. -Resumed fentanyl patch 25 mcg every 72 hours (half of home dose) to avoid withdrawal - Recommend to taper outpatient #SHAY-resolving Likely prerenal due to decreased oral intake. Creatinine 1.9 on admission. -maintenance fluids -avoid nephrotoxic agents -daily CMP #Psychiatric disorders, bipolar disorder, depression, PTSD Amitriptyline 50 mg at bedtime, buspirone 15 mg TID, lamotrigine 150 mg BID, lithium 300 mg BID, lubiprostone 24 mcg BID, mirtazapine 7.5 mgHS, paroxetine 40 mg HS, quetiapine 300 mg HS, risperidone 6 mg HS, ropinirole 5 mg HS, trazodone 375 mg HS ? Follow lithium levels ? needs close follow up with psych #Cannabis dependence -funeral pre arrangement counselor patient #Acute metabolic encephalopathy-resolved Health maintenance: Dispo: downgraded to tele 11/05, hypercalcemia FEN: dysphagia II DVT prophylaxis: Lovenox 40mg SC daily CODE STATUS: Full code The patient's management plan was discussed with my attending physician Dr. Sexton. Nay Syed, PGY-1 Attending Provider Attestation/Addendum I attest that I was physically present for the evaluation, physical examination, lab and imaging review of the patient with the residents. I discussed the case with the residents and agree with the findings and plans of care as documented above. At bedside today, patient appears more alert compared to yesterday. She is oriented and able to answer questions and follow commands appropriately. Calcium level and kidney function have been improving consistently. Neurology following closely, stated that her meningioma is stable compared to the last imaging and does not take any intervention or follow-up, appreciate recommendations. Nephrology following closely, patient continues to be on IV hydration, appreciate recommendations. Adjusted insulin regimen as patient has been hyperglycemic this morning. Continues to be on Rocephin and azithromycin for pneumonia. Briana Sexton MD
--- NOTE | 2024-11-06 14:39 | PC.SS ---
Addendum entered by Radha Velázquez 11/06/24 16:07: SS follow up note; SS sent updated PT notes to adjust. Original Note: SS follow up note; Electrolytes being monitored, patient is pending auth to [facility].
--- NOTE | 2024-11-06 16:14 | PC.NURSE ---
RN made aware that patient's son Gurpreet spoke to [facility] security directing security to prevent visitors to patient's room specifically the patient's sister. Patient wants sister to visit and has been reorienting patient frequently patient states she does want sister to visit. RN made Charge Nurse and SS aware. SS will speak to son and determine next course of action.
--- NOTE | 2024-11-06 16:28 | PC.SS ---
SS follow up note; SS was contacted by patients nurse Amelia, she reported that patient's son, Carol informed her that he did not want patient's sister there, however when speaking with patient she did not reports any concerns and is okay with her sister visiting, when asked who she would want as a Decision maker, patient listed her son Karlo. SS will stand by for further needs.
--- NOTE | 2024-11-06 21:11 | ESPR_ITS ---
Documentation for date of: 11/06/24 Subjective Subjective Interval history: Ms. Lawrence was seen in [facility] today at the bedside with her sister. No complaints other than intermittent confusion, anxiety and unsteadiness. Exam - Neurology Vital Signs Temp Pulse Resp BP Pulse Ox O2 Del Method O2 Flow Rate 97.0 F 88 18 135/90 H 97 Room Air 3 11/06/24 20:00 11/06/24 20:47 11/06/24 20:47 11/06/24 20:00 11/06/24 20:00 11/06/24 20:00 11/06/24 04:00 Narrative Exam GENERAL APPEARANCE: Well developed, obese built female in no acute distress. HEENT: Normocephalic, atraumatic, extraocular movements intact. Pupils: Equal reacting to light and accommodation NECK: Supple, no JVD or bruits. CARDIOVASULAR: Heart: S1, S2 heard, regular without S3-S4 or murmur no rubs or gallops. LUNGS/CHEST: Clear to auscultation bilaterally. No rails, rhonchi, or wheezing. Normal inspection. ABDOMEN: Soft, nontender, with normal bowel sounds. No pulsatile masses. No rebound, rigidity, or guarding. Normal inspection and palpation. EXTREMITIES: Normal inspection and palpation. No edema, clubbing or cyanosis. SKIN: Warm and dry without rashes. Normal inspection. MUSCULOSKELETAL: No cervical, thoracic, lumbar or midline bony tenderness. Normal inspection. NEURO: Alert, awake and oriented x3. Cranial nerves: II through XII grossly intact. Speech and language: Normal with no dysarthria or dysphasia. Motor system: Tone and bulk: Normal: Strength: 5 out of 5 in all 4 extremities; No pronator drift noted. Deep tendon reflexes: 2+ bilaterally symmetrical. Plantar reflex: Downgoing bilaterally. Sensory system: Intact to all modalities of sensation bilaterally. Coordination: Intact to [id number] and lhpy-[id number] test bilaterally. No ataxia, no dysmetria, or dysdiadochokinesia noted. No intention tremors noted. Gait: not tested. No signs of meningeal irritation noted. PSYCHIATRIC: Normal mood and affect. Objective Labs 11/07/24 05:12 11/07/24 05:12 Labs: Laboratory Results - last 24 hr 11/06/24 04:52 WBC 7.6 RBC 4.08 Hgb 12.3 Hct 36.6 MCV 90 MCH 30.1 MCHC 33.6 RDW Std Deviation 43.7 Plt Count 271 D Neut % (Auto) 75 Lymph % (Auto) 10 [place] % (Auto) 12 Eos % (Auto) 3 Baso % (Auto) 0 Neut # (Auto) 5.6 Lymph # (Auto) 0.[address] [place] # (Auto) 0.9 H Eos # (Auto) 0.2 Baso # (Auto) 0.0 Immature Gran # (Auto) 0.04 H Absolute Nucleated RBC 0.00 Immature Gran % 1 H Nucleated RBC % 0 Sodium 137 Potassium 3.4 Chloride 104 Carbon Dioxide 25.9 Anion Gap 7 BUN 15 Creatinine 1.3 Estim Creat Clear Calc 57.1 L eGFR 49 L BUN/Creatinine Ratio 12 Glucose 276 H D Calculated Osmolality 284 Calcium 9.8 D Corrected Calcium 9.8 D Magnesium 1.3 L Total Bilirubin 0.2 L AST 19 ALT 12 Alkaline Phosphatase 81 Total Protein 6.1 Albumin 4.0 Globulin 2.1 L Albumin/Globulin Ratio 1.9 [place] 1.51 H ABG Interpretation ABG results: 11/04/24 10:34 VBG pH 7.39 VBG pCO2 50 VBG pO2 36 VBG Base Excess 4 H Assessment & Plan Assessment and plan (1) Altered mental status: Status: Resolved (2) Meningioma: Status: Chronic Assessment and plan: calcified meningioma from the CT head: noted in 2023 study as well. incidental tumor, not causing any symptoms. No need for any intervention/follow up imaging study. (3) Hypercalcemia: Status: Acute Assessment and plan: trending down to normal range now (4) Diabetes mellitus: Status: Chronic Assessment and plan: needs strict control. Needs PT evaluation for ambulation safety prior to discharge.
[2024-11-07] VITALS (10 sets, daily range): BP systolic 118–162; BP diastolic 72–89; PULSE 82–107; RESP 16–98; TEMP 36.1–36.6; O2SAT 95–99; BMI 34.6
[2024-11-07 06:11] LABS: Alanine Aminotransferase 15 U/L (10-49); Albumin, Serum 3.8 gm/dL (3.5-5.0); Albumin/Globulin Ratio 1.8 (1.2-2.2); Alkaline Phosphatase 78 U/L (46-116); Anion Gap 8 (7-16); Aspartate Amino Transferase 18 U/L (0-34); BUN/Creatinine Ratio 14 Ratio (12-20); Bilirubin,Total < 0.2 mg/dL (0.3-1.2); Blood Urea Nitrogen 17 mg/dL (9-23); Calcium 8.7 mg/dL (8.3-10.6); Calcium (Corrected) 8.9 mg/dL (8.5-10.1); Carbon Dioxide 23.6 mMol/L (20.0-31.0); Chloride 105 mMol/L (98-107); Creatinine (Component) 1.2 mg/dL (0.6-1.3); Estimated Creatinine Clearance 63.8 mL/min (>60); Globulin 2.1 gm/dL (2.3-3.5); Glucose 311 mg/dL (74-106); Magnesium 1.4 mg/dL (1.6-2.6); Osmolality,Calculated 287 (275-295); Phosphorous 2.2 mg/dL (2.4-5.1); Potassium 3.8 mMol/L (3.4-5.1); Sodium 137 mMol/L (136-145); Total Protein 5.9 gm/dL (5.7-8.2); eGFR 54 See Note
[2024-11-07 06:14] LABS: Basophils % (Auto) 0 % (0-2.5); Eosinophils # (Auto) 0.3 Thou/mm3 (0.0-0.5); Eosinophils % (Auto) 4 % (0-10); Hematocrit 34.2 % (36.0-46.0); Hemoglobin 11.6 g/dL (12.0-16.0); Immature Granulocytes % (Auto) 1 % (0-0); Immature Granulocytes Auto 0.04 Thou/mm3 (0.00-0.00); Lymphocytes # (Auto) 0.9 Thou/mm3 (1.0-4.8); Lymphocytes % (Auto) 13 % (10-50); Mean Corpuscular HGB Conc 33.9 g/dl (31.0-37.0); Mean Corpuscular Hemoglobin 30.3 pg (25.0-35.0); Mean Corpuscular Volume 89 fL (80-100); Monocytes # (Auto) 1.1 Thou/mm3 (0.0-0.8); Monocytes % (Auto) 15 % (0-12); Neutrophils # (Auto) 4.9 Thou/mm3 (1.8-7.7); Neutrophils % (Auto) 68 % (37-80); Nucleated Red Blood Cell % 0 /100 WBC (0); Platelet Count 290 Thou/mm3 (140-440); RDW Standard Deviation 43.9 fL (36.4-46.3); Red Blood Count 3.83 Miln/mm3 (4.00-5.20); White Blood Count 7.3 Thou/mm3 (3.6-11.0)
[2024-11-07] MEDS: LOSARTAN POTASSIUM 25 MG TABLET 100 MG PO (08:49)
[2024-11-07] MEDS: INSULIN GLARGINE (Lantus) 5 UNIT/0.05 ML (PER 5 UNITS) 15 UNIT SC (08:49)
[2024-11-07] MEDS: ENOXAPARIN SOD INJ 40 MG/0.4 ML SYRINGE SC (08:49)
[2024-11-07] MEDS: cefTRIAXone/D5w 1gm IV premix 1 GM/50 ML BAG IV (08:49)
[2024-11-07] MEDS: INSULIN LISPRO (AdmeLOG) 1 UNIT/0.01 ML UNIT SC ×4 (08:50→20:17)
[2024-11-07] MEDS: INSULIN LISPRO (AdmeLOG) 1 UNIT/0.01 ML UNIT 6 UNIT SC ×3 (08:50→16:34)
[2024-11-07] MEDS: FAMOTIDINE INJ 10 MG/ML VIAL 2 ML 20 MG IVP (08:51)
--- NOTE | 2024-11-07 10:01 | PC.SS ---
SS follow up note; SS contacted Elsy from [facility] and she informed SS that she will review patient's updated PT notes and contact SS.
[2024-11-07] MEDS: POT PHOS 15 mMol in NS 250 ML 15 MMOL/250 ML BAG 62.5 MMOL IV ×2 (11:07→16:28)
[2024-11-07] MEDS: PANTOPRAZOLE INJ 40 MG VIAL IVP (11:07)
[2024-11-07] MEDS: AZITHROMYCIN INJ 500 MG in SODIUM CHLORIDE 0.9% 250 ML 250 ML 250 MG IV (11:07)
[2024-11-07] MEDS: Magnesium Sulfate 4 GM Ivpb 4 GM/50 ML BAG IV ×2 (11:07→17:28)
[2024-11-07 11:58] LABS: Magnesium 1.5 mg/dL (1.6-2.6); Phosphorous 2.3 mg/dL (2.4-5.1)
[2024-11-07] MEDS: INSULIN LISPRO (AdmeLOG) 1 UNIT/0.01 ML UNIT 10 UNIT SC (12:10)
--- NOTE | 2024-11-07 15:04 | PD.RESPRO ---
Documentation for date of: 11/07/24 Subjective Subjective Interval history: Patient examined at bedside. No events overnight. Alert and oriented x 3. Blood sugars 300 this morning. Increase glargine to 25 units BID and 6 lispro scheduled TID with meals. Uptitrate for goal 140?180. BP 140/86, after resuming losartan yesterday. Will monitor creatinine. SHAY resovled with Cr 1.2. Repleted magnesium and phosphate. W she is cleared to discharge from nephrology standpoint. Will discontinue any vitamin D supplement or calcium carbonate supplements. High concern of polypharmacy with multiple psychiatric medications. She will need to follow-up with PCP and psych closely at time of discharge. Continue antibiotics for pneumonia. Anticipate discharge next 24hrs. She ammenable for SNF placement for more PT. Exam Vital Signs Temp Pulse Resp BP Pulse Ox O2 Del Method O2 Flow Rate 97.6 F 97 18 140/86 H 97 Nasal Cannula 2 11/07/24 12:00 11/07/24 12:00 11/07/24 12:00 11/07/24 12:00 11/07/24 12:11/07/24 12:11/07/24 12:00 Narrative Exam General: Middle age female, obese, No acute distress HEENT: NCAT, No JVD noted. Mucosa moist. Pupils are equal and reactive to light bilaterally Cardiovascular: Normal S1 and S2. Regular rate and rhythm. Respiratory: Lungs are clear to auscultation bilaterally. No wheezing or crackles heard Abdomen: Soft, nontender, not distended,hypoactive bowel sounds Skin: Warm to touch, dry, no rashes noted Musculoskeletal: No gross injuries. Able to move all 4 extremities. No pitting edema Neuro: Alert and oriented x3. Objective Labs 11/08/24 04:54 11/08/24 04:54 Labs: Laboratory Results - last 24 hr 11/07/24 11/07/24 05:12 11:00 WBC 7.3 RBC 3.83 L Hgb 11.6 L Hct 34.2 L MCV 89 MCH 30.3 MCHC 33.9 RDW Std Deviation 43.9 Plt Count 290 Neut % (Auto) 68 Lymph % (Auto) 13 [place] % (Auto) 15 H Eos % (Auto) 4 Baso % (Auto) 0 Neut # (Auto) 4.9 Lymph # (Auto) 0.9 L [place] # (Auto) 1.1 H Eos # (Auto) 0.3 Baso # (Auto) 0.0 Immature Gran # (Auto) 0.04 H Absolute Nucleated RBC 0.00 Immature Gran % 1 H Nucleated RBC % 0 Sodium 137 Potassium 3.8 Chloride 105 Carbon Dioxide 23.6 Anion Gap 8 BUN 17 Creatinine 1.2 Estim Creat Clear Calc 63.8 eGFR 54 L BUN/Creatinine Ratio 14 Glucose 311 H Calculated Osmolality 287 Calcium 8.7 Corrected Calcium 8.9 Phosphorus 2.2 L 2.3 L Magnesium 1.4 L 1.5 L Total Bilirubin < 0.2 L AST 18 ALT 15 Alkaline Phosphatase 78 Total Protein 5.9 Albumin 3.8 Globulin 2.1 L Albumin/Globulin Ratio 1.8 ABG Interpretation ABG results: 11/04/24 10:34 VBG pH 7.39 VBG pCO2 50 VBG pO2 36 VBG Base Excess 4 H Quality Measures Quality Measures none Assessment & Plan Assessment Current Active Medications: Generic Name Dose Route Start Last Admin Trade Name Freq PRN Reason Stop Dose Admin Acetaminophen 1,000 mg 11/04/24 13:13 Acetaminophen 325 Mg Tablet PO 12/04/24 13:12 Q6H PRN Fever >99.9 Dextrose 50 ml 11/04/24 17:14 Dextrose 50%-Water Inj 50 Ml Syringe IV 12/04/24 17:13 Q15MIN PRN BG <50 OR BG <70 & pt unresponsive Enoxaparin Sodium 40 mg 11/06/24 09:00 11/07/24 08:49 Enoxaparin Sod Inj 40 Mg/0.4 Ml Syringe SC 11/20/24 08:59 40 mg QDAY KETAN Administration Protocol Fentanyl 25 mcg 11/05/24 09:45 11/05/24 10:10 Fentanyl 25 Mcg Transdermal Patch TOP 11/10/24 09:44 25 mcg Q3D KETAN Administration Protocol Glucagon 1 mg 11/04/24 17:14 Glucagon Inj 1 Mg Vial IM Q15MIN PRN BG <70, and no IV access Ceftriaxone Sodium/Dextrose 1 gm in 50 mls @ 100 mls/hr 11/05/24 17:00 11/07/24 08:49 Rocephin/D5w 1gm Iv Premix IV 11/12/24 16:59 100 mls/hr QDAY KETAN Administration Azithromycin 500 mg/ Sodium 250 mls @ 250 mls/hr 11/05/24 15:00 11/07/24 11:07 Chloride IV 11/12/24 14:59 250 mls/hr QDAY KETAN Administration Sodium Chloride 1,000 mls @ 90 mls/hr 11/05/24 15:22 11/06/24 05:34 Ns IV 12/05/24 15:21 90 mls/hr .Q11H7M KETAN Administration Potassium Phosphate 15 mmol in 250 mls @ 62.5 mls/hr 11/07/24 07:57 11/07/24 11:07 Pot Phos 15 Mmol In Ns 250 Ml IV 11/07/24 15:56 62.5 mls/hr Q4H KETAN Administration Insulin Glargine 25 unit 11/07/24 21:00 Insulin Glargine (Lantus) 5 Unit/0.05 Ml (Per 5 Units) SC 12/07/24 20:59 BID KETAN Insulin Human Lispro 0 unit 11/06/24 11:30 11/07/24 12:11 Insulin Lispro (Admelog) 1 Unit/0.01 Ml Unit SC 12/06/24 11:29 4 unit ACHS KETAN Administration Protocol Insulin Human Lispro 6 unit 11/07/24 08:00 11/07/24 12:11 Insulin Lispro (Admelog) 1 Unit/0.01 Ml Unit SC 12/07/24 07:59 6 unit TIDWM KETAN Administration Lidocaine 1 patch 11/04/24 18:23 Lidocaine 5% 1 Patch TOP 12/04/24 18:22 UD PRN PAIN Protocol Losartan Potassium 100 mg 11/06/24 09:00 11/07/24 08:49 Losartan Potassium 25 Mg Tablet PO 12/06/24 08:59 100 mg DAILY KETAN Administration Ondansetron HCl 4 mg 11/04/24 13:23 Ondansetron Inj 2 Mg/Ml Inj 2 Ml IVP 12/04/24 13:22 Q6H PRN NAUSEA OR VOMITING Protocol Pantoprazole Sodium 40 mg 11/07/24 09:15 11/07/24 11:07 Pantoprazole Inj 40 Mg Vial IVP 12/07/24 09:14 40 mg QDAY KETAN Administration Plan Leonidas Lawrence is a 53-year-old female PMH of hypertension, insulin-dependent type 2 diabetes, COPD, marijuana smoker, chronic back pain, fibromyalgia who presented to the ED on 11/04 due to altered mental status. The son is main caregiver and noticed that she had soiled herself and had slurred speech that was not making sense. In ED labs showed severe hypercalcemia of 17.3, PTH low 16.5. Admitted to ICU for close monitoring of cardiac dysfunction. #Meningioma CT head shows 7 mm [facility]. -consulted neuro Dr. Medeiros, appreciate recs -Not causing any symptoms so no need for any intervention/follow up imaging study. #Insulin dependent type 2 diabetes On admission initial glucose 300. Last A1c 7.8 on this admission. -Held home medications -Bedside blood glucose checks ACHS -glargine 25 units BID -6 lispro TIDWM -Insulin lispro sliding scale -Carb consistent low diet #CAP #COPD Chest x-ray showed diffuse bilateral pulmonary consolidation. ? Started on ceftriaxone 1 g IV daily on [11/05? ? Started on azithromycin 500 Mg IV daily on [11/05? #Chronic back pain Hx of chronic opiod use home dose oxycodone 20 Mg p.o. Q6 hourly as needed and fentanyl patch 50 mcg daily every 72 hours. Patient had lumbar spine fusion performed a few years ago, is ambulatory w/o assistance at baseline. Medication use hx: ropinirole, quetiapine, pregabalin, paroxetine, risperidone at home. -Resumed fentanyl patch 25 mcg every 72 hours (half of home dose) to avoid withdrawal - Recommend to taper outpatient #SHAY-resolving Likely prerenal due to decreased oral intake. Creatinine 1.9 on admission. -maintenance fluids -avoid nephrotoxic agents -daily CMP #Psychiatric disorders, bipolar disorder, depression, PTSD Amitriptyline 50 mg at bedtime, buspirone 15 mg TID, lamotrigine 150 mg BID, lithium 300 mg BID, lubiprostone 24 mcg BID, mirtazapine 7.5 mgHS, paroxetine 40 mg HS, quetiapine 300 mg HS, risperidone 6 mg HS, ropinirole 5 mg HS, trazodone 375 mg HS ? Follow lithium levels ? needs close follow up with psych #Cannabis dependence -delinquency counselor patient #Acute metabolic encephalopathy-resolved #Severe hypercalcemia-resolved Health maintenance: Dispo: downgraded to tele 11/05, hypercalcemia. Dc to SNF for PT FEN: dysphagia II DVT prophylaxis: Lovenox 40mg SC daily CODE STATUS: Full code The patient's management plan was discussed with my attending physician Dr. Sexton. Nay Syed, PGY-1 Attending Provider Attestation/Addendum I attest that I was physically present for the evaluation, physical examination, lab and imaging review of the patient with the residents. I discussed the case with the residents and agree with the findings and plans of care as documented above. At bedside today, patient appears comfortable, denies any new complaints. Calcium level and kidney function continues to be stable. But patient noted to have blood glucose above 300. Insulin increased to glargine 25 twice daily along with 6 units of lispro 3 times daily with meals. We will continue with insulin sliding scale. If blood glucose improves to a safer level tomorrow, we will plan for discharge. Briana Sexton MD
--- NOTE | 2024-11-07 16:11 | PD.RESPRO ---
Documentation for date of: 11/07/24 Subjective Subjective Interval history: Limited HPI due to mental status, most of the information gathered from EMR chart review and patient's son Michael. The patient is a 53-year-old female with a past medical history of bipolar disorder, depression, PTSD, and CHF, COPD, hypertension, hyperlipidemia, asthma and diabetes mellitus who was brought into the emergency room due to chief complaint of altered mental status and aphasia. Per son, patient recently started Ozempic a couple weeks ago, and has been feeling sick to her stomach since then. Feels nauseous and has not been able to eat solid food, but states she is able to drink adequate fluids. Reported she has had diarrhea for most of the last month, after she ran out of her opioid medications and fentanyl patch, but since refilling her prescriptions, diarrhea has resolved. Denied fever, shortness of breath, but reported that patient frequently complains of chest discomfort, also reported she is being followed by cost estimator Dr. Byrne. Per son, patient has no past medical history of cancer, unsure about Gold [employer] 198 allergy. In the ER, initial vitals blood pressure 123/67, pulse 99/min, Tmax 98.2F, saturating 97% on 4 L nasal cannula O2, initial labs pertinent for mild leukocytosis WBC 12.1, hemoglobin 14.4, platelets 329, CMP shows marked hypercalcemia and SHAY. Sodium 135, potassium 3.9, chloride 100, carbon oxide 30.2, BUN 25, creatinine 1.9, glucose 305, calcium corrected 17.3, magnesium 2.1. U tox positive for fentanyl and marijuana, urinalysis unremarkable for UTI. CT head shows suspicion for 7 mm right frontal meningioma, recommended MRI for follow-up. EKG shows sinus rhythm and nonspecific T wave abnormality, possible right ventricular hypertrophy. 11/05/2024 the patient is evaluated at bedside, noted improvement in mental status, serum calcium improved to 12.2, serum sodium 141, potassium 3.9, BUN 19, creatinine 1.5. PTH levels within normal limit, 16.5, 2 5 hydroxy vitamin D3 in, 29.1, urine calcium to creatinine ratio 0.24, ruled out FHHC, lithium levels 0.60 continue with IV fluids, hold off on further administration of calcitonin. 11/06/2024, patient evaluated bedside, at baseline mental status alert and oriented x 3, complaining of abdominal discomfort localized to the epigastric region. 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 Recommend holding off on further calcitonin or IV fluids. Likely secondary to supplemental intake of calcium. 11/07/2024, patient evaluated at bedside, at baseline mental status, still complaining of abdominal discomfort but reported improvement. Improvement in renal function, BUN 17, creatinine 1.2, calcium 8.9. The patient can be discharged from nephrology standpoint. Patient was counseled regarding discontinuing Tums, recommend gastroenterology consult on discharge as patient has chronic dyspepsia, may benefit from proton pump inhibitors for symptomatic relief. Exam Vital Signs Temp Pulse Resp BP Pulse Ox O2 Del Method O2 Flow Rate 97.6 F 97 18 140/86 H 97 Nasal Cannula 2 11/07/24 12:00 11/07/24 12:00 11/07/24 12:00 11/07/24 12:00 11/07/24 12:11/07/24 12:11/07/24 12:00 Narrative Exam General: Alert and oriented x 3, able to move all 4 extremities. Skin: Intact, freckles all over, no cyanosis or edema noted. HEENT: Atraumatic/normocephalic, JULIA, neck supple Heart: RRR, S1 and S2 without clicks or murmurs Lungs: Clear on auscultation bilaterally, no difficulty breathing Abdomen: Mild abdominal tenderness right and left lower quadrants. Bowel sounds present . Vascular: Peripheral pulses palpable Neuro: No focal neurological deficits noted. Objective Labs 11/07/24 05:12 11/07/24 05:12 Labs: Laboratory Results - last 24 hr 11/07/24 11/07/24 05:12 11:00 WBC 7.3 RBC 3.83 L Hgb 11.6 L Hct 34.2 L MCV 89 MCH 30.3 MCHC 33.9 RDW Std Deviation 43.9 Plt Count 290 Neut % (Auto) 68 Lymph % (Auto) 13 [place] % (Auto) 15 H Eos % (Auto) 4 Baso % (Auto) 0 Neut # (Auto) 4.9 Lymph # (Auto) 0.9 L [place] # (Auto) 1.1 H Eos # (Auto) 0.3 Baso # (Auto) 0.0 Immature Gran # (Auto) 0.04 H Absolute Nucleated RBC 0.00 Immature Gran % 1 H Nucleated RBC % 0 Sodium 137 Potassium 3.8 Chloride 105 Carbon Dioxide 23.6 Anion Gap 8 BUN 17 Creatinine 1.2 Estim Creat Clear Calc 63.8 eGFR 54 L BUN/Creatinine Ratio 14 Glucose 311 H Calculated Osmolality 287 Calcium 8.7 Corrected Calcium 8.9 Phosphorus 2.2 L 2.3 L Magnesium 1.4 L 1.5 L Total Bilirubin < 0.2 L AST 18 ALT 15 Alkaline Phosphatase 78 Total Protein 5.9 Albumin 3.8 Globulin 2.1 L Albumin/Globulin Ratio 1.8 ABG Interpretation ABG results: 11/04/24 10:34 VBG pH 7.39 VBG pCO2 50 VBG pO2 36 VBG Base Excess 4 H Quality Measures Quality Measures none Assessment & Plan Assessment Current Active Medications: Generic Name Dose Route Start Last Admin Trade Name Freq PRN Reason Stop Dose Admin Acetaminophen 1,000 mg 11/04/24 13:13 Acetaminophen 325 Mg Tablet PO 12/04/24 13:12 Q6H PRN Fever >99.9 Dextrose 50 ml 11/04/24 17:14 Dextrose 50%-Water Inj 50 Ml Syringe IV 12/04/24 17:13 Q15MIN PRN BG <50 OR BG <70 & pt unresponsive Enoxaparin Sodium 40 mg 11/06/24 09:00 11/07/24 08:49 Enoxaparin Sod Inj 40 Mg/0.4 Ml Syringe SC 11/20/24 08:59 40 mg QDAY KETAN Administration Protocol Fentanyl 25 mcg 11/05/24 09:45 11/05/24 10:10 Fentanyl 25 Mcg Transdermal Patch TOP 11/10/24 09:44 25 mcg Q3D KETAN Administration Protocol Glucagon 1 mg 11/04/24 17:14 Glucagon Inj 1 Mg Vial IM Q15MIN PRN BG <70, and no IV access Ceftriaxone Sodium/Dextrose 1 gm in 50 mls @ 100 mls/hr 11/05/24 17:00 11/07/24 08:49 Rocephin/D5w 1gm Iv Premix IV 11/12/24 16:59 100 mls/hr QDAY KETAN Administration Azithromycin 500 mg/ Sodium 250 mls @ 250 mls/hr 11/05/24 15:00 11/07/24 11:07 Chloride IV 11/12/24 14:59 250 mls/hr QDAY KETAN Administration Sodium Chloride 1,000 mls @ 90 mls/hr 11/05/24 15:22 11/06/24 05:34 Ns IV 12/05/24 15:21 90 mls/hr .Q11H7M KETAN Administration Magnesium Sulfate 4 gm in 50 mls @ 12.5 mls/hr 11/07/24 18:00 Magnesium Sulfate Ivpb IV 11/07/24 21:59 X1 ONE Insulin Glargine 25 unit 11/07/24 21:00 Insulin Glargine (Lantus) 5 Unit/0.05 Ml (Per 5 Units) SC 12/07/24 20:59 BID KETAN Insulin Human Lispro 0 unit 11/06/24 11:30 11/07/24 12:11 Insulin Lispro (Admelog) 1 Unit/0.01 Ml Unit SC 12/06/24 11:29 4 unit ACHS KETAN Administration Protocol Insulin Human Lispro 6 unit 11/07/24 08:00 11/07/24 12:11 Insulin Lispro (Admelog) 1 Unit/0.01 Ml Unit SC 12/07/24 07:59 6 unit TIDWM KETAN Administration Lidocaine 1 patch 11/04/24 18:23 Lidocaine 5% 1 Patch TOP 12/04/24 18:22 UD PRN PAIN Protocol Losartan Potassium 100 mg 11/06/24 09:00 11/07/24 08:49 Losartan Potassium 25 Mg Tablet PO 12/06/24 08:59 100 mg DAILY KETAN Administration Ondansetron HCl 4 mg 11/04/24 13:23 Ondansetron Inj 2 Mg/Ml Inj 2 Ml IVP 12/04/24 13:22 Q6H PRN NAUSEA OR VOMITING Protocol Pantoprazole Sodium 40 mg 11/07/24 09:15 11/07/24 11:07 Pantoprazole Inj 40 Mg Vial IVP 12/07/24 09:14 40 mg QDAY KETAN Administration Plan #Hypocalcemia?severe #Acute kidney injury?improving Patient takes lithium, possible lithium induced hypercalcemia. Also takes vitamin D supplements. In the ED patient received 1 dose of pamidronate, IV furosemide 40 mg and 1 L IV fluid bolus ? Serum PTH levels WNL ? Urine calcium, urine creatinine, ratio 0.24, ruled out FHHC ? Serum vitamin D levels, WNL 11/06/2024 complaining of abdominal discomfort localized to the epigastric region. 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 Recommend holding off on further calcitonin or IV fluids. Likely secondary to supplemental intake of calcium. 11/07/2024 Improvement in renal function, BUN 17, creatinine 1.2, calcium 8.9. The patient can be discharged from nephrology standpoint. Patient was counseled regarding discontinuing Tums, recommend gastroenterology consult on discharge as patient has chronic dyspepsia, may benefit from proton pump inhibitors for symptomatic relief. #Concern for meningioma CT head shows 7 mm meningioma, recommended MRI with stroke protocol. ? Follow MRI findings #Abdominal pain Possibly related to hypercalcemia, x-ray abdomen showed large amount of stool throughout colon. ? Bowel regimen # History of psychiatric disorders, bipolar disorder, depression, PTSD ? Follow lithium levels ? Avoid nephrotoxic medications # History of asthma ?Management per primary team Plan of care discussed with attending Dr. Bridget Corona PGY 2 Attending Provider Attestation/Addendum Patient seen and examined with resident physician Dr. Corona. Note reviewed, agree with findings and recommendations. Patient resting comfortably. Calcium and electrolytes stable. Discharge planning per primary team.
[2024-11-07] MEDS: INSULIN GLARGINE (Lantus) 5 UNIT/0.05 ML (PER 5 UNITS) 25 UNIT SC (20:15)
--- NOTE | 2024-11-07 23:50 | ESPR_ITS ---
Documentation for date of: 11/07/24 Subjective Subjective Interval history: Ms. Lawrence was seen in [facility] today at the bedside with her sister. No complaints other than generalized weakness. Exam - Neurology Vital Signs Temp Pulse Resp BP Pulse Ox O2 Del Method O2 Flow Rate 97.0 F 91 18 140/72 H 96 Nasal Cannula 2 11/07/24 20:00 11/07/24 20:00 11/07/24 20:00 11/07/24 20:00 11/07/24 20:00 11/07/24 20:00 11/07/24 20:00 Narrative Exam GENERAL APPEARANCE: Well developed, obese built female in no acute distress. HEENT: Normocephalic, atraumatic, extraocular movements intact. Pupils: Equal reacting to light and accommodation NECK: Supple, no JVD or bruits. CARDIOVASULAR: Heart: S1, S2 heard, regular without S3-S4 or murmur no rubs or gallops. LUNGS/CHEST: Clear to auscultation bilaterally. No rails, rhonchi, or wheezing. Normal inspection. ABDOMEN: Soft, nontender, with normal bowel sounds. No pulsatile masses. No rebound, rigidity, or guarding. Normal inspection and palpation. EXTREMITIES: Normal inspection and palpation. No edema, clubbing or cyanosis. SKIN: Warm and dry without rashes. Normal inspection. MUSCULOSKELETAL: No cervical, thoracic, lumbar or midline bony tenderness. Normal inspection. NEURO: Alert, awake and oriented x3. Cranial nerves: II through XII grossly intact. Speech and language: Normal with no dysarthria or dysphasia. Motor system: Tone and bulk: Normal: Strength: 5 out of 5 in all 4 extremities; No pronator drift noted. Deep tendon reflexes: 2+ bilaterally symmetrical. Plantar reflex: Downgoing bilaterally. Sensory system: Intact to all modalities of sensation bilaterally. Coordination: Intact to [id number] and [id number] test bilaterally. No ataxia, no dysmetria, or dysdiadochokinesia noted. No intention tremors noted. Gait: not tested. No signs of meningeal irritation noted. PSYCHIATRIC: Normal mood and affect. Objective Labs 11/07/24 05:12 11/07/24 05:12 Labs: Laboratory Results - last 24 hr 11/07/24 11/07/24 05:12 11:00 WBC 7.3 RBC 3.83 L Hgb 11.6 L Hct 34.2 L MCV 89 MCH 30.3 MCHC 33.9 RDW Std Deviation 43.9 Plt Count 290 Neut % (Auto) 68 Lymph % (Auto) 13 [place] % (Auto) 15 H Eos % (Auto) 4 Baso % (Auto) 0 Neut # (Auto) 4.9 Lymph # (Auto) 0.9 L [place] # (Auto) 1.1 H Eos # (Auto) 0.3 Baso # (Auto) 0.0 Immature Gran # (Auto) 0.04 H Absolute Nucleated RBC 0.00 Immature Gran % 1 H Nucleated RBC % 0 Sodium 137 Potassium 3.8 Chloride 105 Carbon Dioxide 23.6 Anion Gap 8 BUN 17 Creatinine 1.2 Estim Creat Clear Calc 63.8 eGFR 54 L BUN/Creatinine Ratio 14 Glucose 311 H Calculated Osmolality 287 Calcium 8.7 Corrected Calcium 8.9 Phosphorus 2.2 L 2.3 L Magnesium 1.4 L 1.5 L Total Bilirubin < 0.2 L AST 18 ALT 15 Alkaline Phosphatase 78 Total Protein 5.9 Albumin 3.8 Globulin 2.1 L Albumin/Globulin Ratio 1.8 ABG Interpretation ABG results: 11/04/24 10:34 VBG pH 7.39 VBG pCO2 50 VBG pO2 36 VBG Base Excess 4 H Assessment & Plan Assessment and plan (1) Altered mental status: Status: Resolved (2) Meningioma: Status: Chronic Assessment and plan: calcified meningioma from the CT head: noted in 2023 study as well. incidental tumor, not causing any symptoms. No need for any intervention/follow up imaging study. (3) Hypercalcemia: Status: Acute Assessment and plan: trending down to normal range now (4) Diabetes mellitus: Status: Chronic Assessment and plan: needs strict control. Needs PT evaluation for ambulation safety prior to discharge.
[2024-11-08] VITALS (10 sets, daily range): BP systolic 104–156; BP diastolic 76–96; PULSE 70–97; RESP 16–97; TEMP 36.1–36.5; O2SAT 96–98; BMI 34.1
[2024-11-08 05:43] LABS: Basophils % (Auto) 0 % (0-2.5); Eosinophils # (Auto) 0.3 Thou/mm3 (0.0-0.5); Eosinophils % (Auto) 5 % (0-10); Hemoglobin 11.4 g/dL (12.0-16.0); Immature Granulocytes % (Auto) 1 % (0-0); Immature Granulocytes Auto 0.03 Thou/mm3 (0.00-0.00); Lymphocytes # (Auto) 1.3 Thou/mm3 (1.0-4.8); Lymphocytes % (Auto) 19 % (10-50); Mean Corpuscular HGB Conc 33.5 g/dl (31.0-37.0); Mean Corpuscular Hemoglobin 30.6 pg (25.0-35.0); Mean Corpuscular Volume 91 fL (80-100); Monocytes # (Auto) 1.1 Thou/mm3 (0.0-0.8); Monocytes % (Auto) 16 % (0-12); Neutrophils # (Auto) 3.9 Thou/mm3 (1.8-7.7); Neutrophils % (Auto) 59 % (37-80); Nucleated Red Blood Cell % 0 /100 WBC (0); Platelet Count 294 Thou/mm3 (140-440); RDW Standard Deviation 44.2 fL (36.4-46.3); Red Blood Count 3.72 Miln/mm3 (4.00-5.20); White Blood Count 6.6 Thou/mm3 (3.6-11.0)
[2024-11-08 06:22] LABS: Alanine Aminotransferase 16 U/L (10-49); Albumin, Serum 3.7 gm/dL (3.5-5.0); Albumin/Globulin Ratio 1.8 (1.2-2.2); Alkaline Phosphatase 79 U/L (46-116); Anion Gap 8 (7-16); Aspartate Amino Transferase 14 U/L (0-34); BUN/Creatinine Ratio 18 Ratio (12-20); Bilirubin,Total < 0.2 mg/dL (0.3-1.2); Blood Urea Nitrogen 21 mg/dL (9-23); Calcium (Corrected) 8.2 mg/dL (8.5-10.1); Carbon Dioxide 25.1 mMol/L (20.0-31.0); Chloride 105 mMol/L (98-107); Creatinine (Component) 1.2 mg/dL (0.6-1.3); Estimated Creatinine Clearance 63.4 mL/min (>60); Globulin 2.1 gm/dL (2.3-3.5); Glucose 348 mg/dL (74-106); Osmolality,Calculated 292 (275-295); Potassium 4.3 mMol/L (3.4-5.1); Sodium 138 mMol/L (136-145); Total Protein 5.8 gm/dL (5.7-8.2); eGFR 54 See Note
[2024-11-08] MEDS: cefTRIAXone/D5w 1gm IV premix 1 GM/50 ML BAG IV (08:28)
[2024-11-08] MEDS: ENOXAPARIN SOD INJ 40 MG/0.4 ML SYRINGE SC (08:28)
[2024-11-08] MEDS: PANTOPRAZOLE INJ 40 MG VIAL IVP (08:28)
[2024-11-08] MEDS: LOSARTAN POTASSIUM 25 MG TABLET 100 MG PO (08:28)
[2024-11-08] MEDS: INSULIN GLARGINE (Lantus) 5 UNIT/0.05 ML (PER 5 UNITS) 30 UNIT SC (08:29)
[2024-11-08] MEDS: NAPH,KPH MBDB 1 PACKET (1.5 GM) PO (08:48)
[2024-11-08] MEDS: INSULIN LISPRO (AdmeLOG) 1 UNIT/0.01 ML UNIT SC ×4 (08:49→21:07)
[2024-11-08] MEDS: INSULIN LISPRO (AdmeLOG) 1 UNIT/0.01 ML UNIT 10 UNIT SC ×3 (08:49→17:59)
[2024-11-08] MEDS: AZITHROMYCIN INJ 500 MG in SODIUM CHLORIDE 0.9% 250 ML 250 ML 250 MG IV (08:49)
[2024-11-08] MEDS: Magnesium Sulfate 2 GM Ivpb 2 GM/50 ML BAG IV (09:16)
--- NOTE | 2024-11-08 09:33 | ESPR_ITS ---
Documentation for date of: 11/08/24 Subjective Subjective Interval history: Patient was seen and examined at bedside. No acute overnight events. Patient is AO x 3, labs and vitals were reviewed, CBC unremarkable, mild anemia, which appears to be stable, CMP unremarkable except hyperglycemia of 348 despite being on 25 units of Lantus twice daily and 6 units of 3 times daily with meal. Insulin regimen was adjusted, currently patient is on 35 units of Lantus twice daily, 10 units of lispro 3 times daily with meal was placed. Patient continue to get antibiotics ceftriaxone and azithromycin to cover community-acquired pneumonia. Hypercalcemia has resolved, currently patient is having hypocalcemia of 8.2, all home medication regimen was discussed in details with the patient. The patient appears to be on multiple psychiatric medications, with some documented at double dosages. She is a poor historian and unable to clearly report her current medication regimen. After medication review, several will be discontinued at discharge. For now, we will resume only paroxetine, buspirone, and lamotrigine. Final discharge regimen will be determined tomorrow. Millard will be held due to elevated serum levels. The patient requires close and urgent follow-up with both her primary care provider and psychiatrist to review and adjust her psychiatric medications appropriately. Exam Vital Signs Temp Pulse Resp BP Pulse Ox O2 Del Method O2 Flow Rate 97.2 F 89 16 115/85 H 98 Nasal Cannula 2 11/08/24 07:40 11/08/24 08:28 11/08/24 07:40 11/08/24 08:28 11/08/24 07:40 11/08/24 04:00 11/08/24 04:00 Narrative Exam General: Middle age female, obese, No acute distress HEENT: NCAT, No JVD noted. Mucosa moist. Pupils are equal and reactive to light bilaterally Cardiovascular: Normal S1 and S2. Regular rate and rhythm. Respiratory: Lungs are clear to auscultation bilaterally. No wheezing or crackles heard Abdomen: Soft, nontender, not distended,hypoactive bowel sounds Skin: Warm to touch, dry, no rashes noted Musculoskeletal: No gross injuries. Able to move all 4 extremities. No pitting edema Neuro: Alert and oriented x3. Objective Labs 11/08/24 04:54 11/08/24 04:54 Labs: Laboratory Results - last 24 hr 11/07/24 11/08/24 11:00 04:54 WBC 6.6 RBC 3.72 L Hgb 11.4 L Hct 34.0 L MCV 91 MCH 30.6 MCHC 33.5 RDW Std Deviation 44.2 Plt Count 294 Neut % (Auto) 59 Lymph % (Auto) 19 [place] % (Auto) 16 H Eos % (Auto) 5 Baso % (Auto) 0 Neut # (Auto) 3.9 Lymph # (Auto) 1.3 [place] # (Auto) 1.1 H Eos # (Auto) 0.3 Baso # (Auto) 0.0 Immature Gran # (Auto) 0.03 H Absolute Nucleated RBC 0.00 Immature Gran % 1 H Nucleated RBC % 0 Sodium 138 Potassium 4.3 D Chloride 105 Carbon Dioxide 25.1 Anion Gap 8 BUN 21 Creatinine 1.2 Estim Creat Clear Calc 63.4 eGFR 54 L BUN/Creatinine Ratio 18 Glucose 348 H Calculated Osmolality 292 Calcium 8.0 L Corrected Calcium 8.2 L Phosphorus 2.3 L Magnesium 1.5 L Total Bilirubin < 0.2 L AST 14 ALT 16 Alkaline Phosphatase 79 Total Protein 5.8 Albumin 3.7 Globulin 2.1 L Albumin/Globulin Ratio 1.8 ABG Interpretation ABG results: 11/04/24 10:34 VBG pH 7.39 VBG pCO2 50 VBG pO2 36 VBG Base Excess 4 H Quality Measures Quality Measures none Assessment & Plan Assessment Current Active Medications: Generic Name Dose Route Start Last Admin Trade Name Freq PRN Reason Stop Dose Admin Acetaminophen 1,000 mg 11/04/24 13:13 Acetaminophen 325 Mg Tablet PO 12/04/24 13:12 Q6H PRN Fever >99.9 Atorvastatin Calcium 40 mg 11/09/24 21:00 Atorvastatin Calcium 20 Mg Tablet PO 12/09/24 20:59 HS KETAN Buspirone HCl 15 mg 11/08/24 14:00 Buspirone Hcl 5 Mg Tablet PO 12/08/24 13:59 TID KETAN Clopidogrel Bisulfate 75 mg 11/08/24 09:30 Clopidogrel Bisulfate 75 Mg Tablet PO 12/08/24 09:29 DAILY KETAN Dextrose 50 ml 11/04/24 17:14 Dextrose 50%-Water Inj 50 Ml Syringe IV 12/04/24 17:13 Q15MIN PRN BG <50 OR BG <70 & pt unresponsive Enoxaparin Sodium 40 mg 11/06/24 09:00 11/08/24 08:28 Enoxaparin Sod Inj 40 Mg/0.4 Ml Syringe SC 11/20/24 08:59 40 mg QDAY KETAN Administration Protocol Fentanyl 25 mcg 11/05/24 09:45 11/05/24 10:10 Fentanyl 25 Mcg Transdermal Patch TOP 11/10/24 09:44 25 mcg Q3D KETAN Administration Protocol Glucagon 1 mg 11/04/24 17:14 Glucagon Inj 1 Mg Vial IM Q15MIN PRN BG <70, and no IV access Ceftriaxone Sodium/Dextrose 1 gm in 50 mls @ 100 mls/hr 11/05/24 17:00 11/08/24 08:28 Rocephin/D5w 1gm Iv Premix IV 11/12/24 16:59 100 mls/hr QDAY KETAN Administration Azithromycin 500 mg/ Sodium 250 mls @ 250 mls/hr 11/05/24 15:00 11/08/24 08:49 Chloride IV 11/12/24 14:59 250 mls/hr QDAY KETAN Administration Sodium Chloride 1,000 mls @ 90 mls/hr 11/05/24 15:22 11/06/24 05:34 Ns IV 12/05/24 15:21 90 mls/hr .Q11H7M KETAN Administration Magnesium Sulfate 2 gm in 50 mls @ 25 mls/hr 11/08/24 08:42 11/08/24 09:16 Magnesium Sulfate Ivpb IV 11/08/24 10:41 25 mls/hr X1 ONE Administration Insulin Glargine 30 unit 11/08/24 09:00 11/08/24 08:29 Insulin Glargine (Lantus) 5 Unit/0.05 Ml (Per 5 Units) SC 12/08/24 08:59 30 unit BID KETAN Administration Insulin Human Lispro 0 unit 11/06/24 11:30 11/08/24 08:49 Insulin Lispro (Admelog) 1 Unit/0.01 Ml Unit SC 12/06/24 11:29 5 unit ACHS KETAN Administration Protocol Insulin Human Lispro 10 unit 11/08/24 08:00 11/08/24 08:49 Insulin Lispro (Admelog) 1 Unit/0.01 Ml Unit SC 12/08/24 07:59 10 unit TIDWM KETAN Administration Lamotrigine 150 mg 11/08/24 21:00 Lamotrigine 100 Mg Tablet (Non-Form) PO 12/08/24 20:59 HS KETAN Lidocaine 1 patch 11/04/24 18:23 Lidocaine 5% 1 Patch TOP 12/04/24 18:22 UD PRN PAIN Protocol Losartan Potassium 100 mg 11/06/24 09:00 11/08/24 08:28 Losartan Potassium 25 Mg Tablet PO 12/06/24 08:59 100 mg DAILY KETAN Administration Ondansetron HCl 4 mg 11/04/24 13:23 Ondansetron Inj 2 Mg/Ml Inj 2 Ml IVP 12/04/24 13:22 Q6H PRN NAUSEA OR VOMITING Protocol Pantoprazole Sodium 40 mg 11/07/24 09:15 11/08/24 08:28 Pantoprazole Inj 40 Mg Vial IVP 12/07/24 09:14 40 mg QDAY KETAN Administration Paroxetine HCl 40 mg 11/08/24 21:00 Paroxetine Hcl 10 Mg Tablet PO 12/08/24 20:59 HS KETAN Plan Leonidas Lawrence is a 53-year-old female PMH of hypertension, insulin-dependent type 2 diabetes, COPD, marijuana smoker, chronic back pain, fibromyalgia who presented to the ED on 11/04 due to altered mental status. The son is main caregiver and noticed that she had soiled herself and had slurred speech that was not making sense. In ED labs showed severe hypercalcemia of 17.3, PTH low 16.5. Admitted to ICU for close monitoring of cardiac dysfunction. #Insulin dependent type 2 diabetes On admission initial glucose 300. Last A1c 7.8 on this admission. -Held home medications -Bedside blood glucose checks ACHS -Glargine 35 units BID -10 lispro TIDWM -Insulin lispro sliding scale -Carb consistent low diet #Meningioma CT head shows 7 mm [facility]ioma cons[facility] ago. -consulted neuro Dr. Medeiros, appreciate recs -Not causing any symptoms so no need for any intervention/follow up imaging study. #CAP #COPD Chest x-ray showed diffuse bilateral pulmonary consolidation. ? ceftriaxone 1 g IV daily on [11/05? ? azithromycin 500 Mg IV daily on [11/05? #Chronic back pain Hx of chronic opiod use home dose oxycodone 20 Mg p.o. Q6 hourly as needed and fentanyl patch 50 mcg daily every 72 hours. Patient had lumbar spine fusion performed a few years ago, is ambulatory w/o assistance at baseline. Medication use hx: ropinirole, quetiapine, pregabalin, paroxetine, risperidone at home. -Resumed fentanyl patch 25 mcg every 72 hours (half of home dose) to avoid withdrawal - Recommend to taper outpatient #SHAY-resolving Likely prerenal due to decreased oral intake. Creatinine 1.9 on admission. -avoid nephrotoxic agents -daily CMP #Psychiatric disorders, bipolar disorder, depression, PTSD Amitriptyline 50 mg at bedtime, buspirone 15 mg TID, lamotrigine 150 mg BID, lithium 300 mg BID, lubiprostone 24 mcg BID, mirtazapine 7.5 mgHS, paroxetine 40 mg HS, quetiapine 300 mg HS, risperidone 6 mg HS, ropinirole 5 mg HS, trazodone 375 mg HS Eleavted serum lithium level ? hold lithium - resume paroxetin, buspirone ? The patient appears to be on multiple psychiatric medications, with some documented at double dosages. She is a poor historian and unable to clearly report her current medication regimen. After medication review, several will be discontinued at discharge. For now, we will resume only paroxetine, buspirone, and lamotrigine. Final discharge regimen will be determined tomorrow. 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 Dc to SNF for PT FEN: dysphagia II DVT prophylaxis: Lovenox 40mg SC daily CODE STATUS: Full code The patient's management plan was discussed with my attending physician Dr. Sexton. Livier Davidson MD PGY-2 Attending Provider Attestation/Addendum I attest that I was physically present for the evaluation, physical examination, lab and imaging review of the patient with the residents. I discussed the case with the residents and agree with the findings and plans of care as documented above. At bedside today, patient states he is feeling well and denies any complaints. Vital signs are stable, saturating well on nasal cannula. Lab results are also stable. But patient's blood glucose continues to remain high above 300. Readjusted her Lantus regimen, increased it to 35 units twice daily glargine, lispro 10 units 3 times daily and sliding scale. Resumed some of her home medication including buspirone, clopidogrel, atorvastatin, lamotrigine, paroxetine. Plan to discharge tomorrow if glucose level improves. Briana Sexton MD
[2024-11-08] MEDS: CLOPIDOGREL BISULFATE 75 MG TABLET PO (11:26)
[2024-11-08] MEDS: fentaNYL 25 mCg TRANSDERMAL PATCH TOP (12:08)
--- NOTE | 2024-11-08 12:45 | PC.SS ---
SS follow up note; Patients blood sugars being monitored. Patient will discharge to [place] when medically cleared.
[2024-11-08] MEDS: BusPIRone HCL 5 MG TABLET 15 MG PO ×2 (15:03→21:09)
[2024-11-08] MEDS: PARoxetine HCL 10 MG TABLET 40 MG PO (21:08)
[2024-11-08] MEDS: INSULIN GLARGINE (Lantus) 5 UNIT/0.05 ML (PER 5 UNITS) 35 UNIT SC (21:08)
[2024-11-08] MEDS: lamoTRIgine 100 MG TABLET (NON-FORM) 150 MG PO (21:08)
[2024-11-09] VITALS (8 sets, daily range): BP systolic 130–167; BP diastolic 73–98; PULSE 74–92; RESP 17–99; TEMP 36.1–36.6; O2SAT 95–98
[2024-11-09] MEDS: ACETAMINOPHEN 325 MG TABLET 1000 MG PO (00:09)
[2024-11-09] MEDS: LIDOCAINE 5% 1 PATCH TOP (00:09)
[2024-11-09] MEDS: BusPIRone HCL 5 MG TABLET 15 MG PO ×2 (05:52→15:15)
[2024-11-09 06:18] LABS: Basophils % (Auto) 1 % (0-2.5); Eosinophils # (Auto) 0.3 Thou/mm3 (0.0-0.5); Eosinophils % (Auto) 4 % (0-10); Hematocrit 35.5 % (36.0-46.0); Hemoglobin 11.7 g/dL (12.0-16.0); Immature Granulocytes % (Auto) 1 % (0-0); Immature Granulocytes Auto 0.04 Thou/mm3 (0.00-0.00); Lymphocytes # (Auto) 1.3 Thou/mm3 (1.0-4.8); Lymphocytes % (Auto) 19 % (10-50); Mean Corpuscular Volume 91 fL (80-100); Monocytes # (Auto) 0.9 Thou/mm3 (0.0-0.8); Monocytes % (Auto) 13 % (0-12); Neutrophils # (Auto) 4.2 Thou/mm3 (1.8-7.7); Neutrophils % (Auto) 63 % (37-80); Nucleated Red Blood Cell % 0 /100 WBC (0); Platelet Count 359 Thou/mm3 (140-440); RDW Standard Deviation 45.1 fL (36.4-46.3); White Blood Count 6.7 Thou/mm3 (3.6-11.0)
[2024-11-09 06:54] LABS: Alanine Aminotransferase 17 U/L (10-49); Albumin, Serum 3.9 gm/dL (3.5-5.0); Albumin/Globulin Ratio 1.8 (1.2-2.2); Alkaline Phosphatase 78 U/L (46-116); Anion Gap 10 (7-16); Aspartate Amino Transferase 15 U/L (0-34); BUN/Creatinine Ratio 15 Ratio (12-20); Bilirubin,Total < 0.2 mg/dL (0.3-1.2); Blood Urea Nitrogen 15 mg/dL (9-23); Calcium 7.9 mg/dL (8.3-10.6); Carbon Dioxide 24.5 mMol/L (20.0-31.0); Chloride 104 mMol/L (98-107); Estimated Creatinine Clearance 76.1 mL/min (>60); Globulin 2.2 gm/dL (2.3-3.5); Glucose 220 mg/dL (74-106); Magnesium 1.6 mg/dL (1.6-2.6); Osmolality,Calculated 283 (275-295); Phosphorous 2.1 mg/dL (2.4-5.1); Potassium 4.1 mMol/L (3.4-5.1); Sodium 138 mMol/L (136-145); Total Protein 6.1 gm/dL (5.7-8.2); eGFR > 60 See Note
[2024-11-09] MEDS: LOSARTAN POTASSIUM 25 MG TABLET 100 MG PO (09:09)
[2024-11-09] MEDS: CLOPIDOGREL BISULFATE 75 MG TABLET PO (09:09)
[2024-11-09] MEDS: INSULIN LISPRO (AdmeLOG) 1 UNIT/0.01 ML UNIT SC ×2 (09:10→12:26)
[2024-11-09] MEDS: INSULIN LISPRO (AdmeLOG) 1 UNIT/0.01 ML UNIT 10 UNIT SC ×2 (09:11→12:27)
[2024-11-09] MEDS: NAPH,KPH MBDB 1 PACKET (1.5 GM) 2 PACKET PO (09:12)
[2024-11-09] MEDS: INSULIN GLARGINE (Lantus) 5 UNIT/0.05 ML (PER 5 UNITS) 40 UNIT SC (09:12)
[2024-11-09] MEDS: PANTOPRAZOLE INJ 40 MG VIAL IVP (09:12)
[2024-11-09] MEDS: cefTRIAXone/D5w 1gm IV premix 1 GM/50 ML BAG IV (09:13)
[2024-11-09] MEDS: ENOXAPARIN SOD INJ 40 MG/0.4 ML SYRINGE SC (09:16)
--- NOTE | 2024-11-09 09:29 | PD.RESDS ---
Planned Discharge Date 11/09/24 DS: Providers Provider Date of admission: 11/04/24 13:47 Primary care physician: Scott Lara MD Admitting Provider: Xavier Petit MD Attending Provider on Admission: Briana Sexton MD Consults: 11/04/24 13:29 Consult to Nephrology Urgent Comment: Consulting Provider: Elyse Gill 11/04/24 14:10 Referral Speech Therapy Stat Comment: swallow eval 11/04/24 18:24 Referral Physical Therapy Routine Comment: Physician Instructions: 11/04/24 19:43 Referral Wound Care Routine Comment: 11/05/24 10:58 Consult to Neurology / Tele-Neurology Routine Comment: Consulting Provider: To Medeiros Attending Provider on DC: Nay Syed MD Discharging Provider: Nay Syed MD DS: Diagnosis Problem List Completed Was Problem List Reviewed/Reconciled?: Yes Hospital Course Hospital Course Hospital course: Reason for hospitalization: AMS 2/2 Hypercalcemia Leonidas Lawrence is a 53-year-old female PMH of hypertension, insulin-dependent type 2 diabetes, COPD, marijuana smoker, chronic back pain, fibromyalgia, pseudoseizures, extensive psych history who presented to the ED on 11/04 due to altered mental status. The son is main caregiver and noticed that she had soiled herself and had slurred speech that was not making sense. In ED labs showed severe hypercalcemia of 17.3, PTH low 16.5. Nephrology Dr Gill consulted and patient started on calcitonin, admitted to ICU for close monitoring of cardiac dysfunction. EKGs remained normal with no signs of arrhythmia and calcium improved to 12. Her mentation improved and she was restarted fentanyl patch at 25 mcg [half of home dose]. Neurology Dr. Medeiros was consulted due to acute encephalopathy and findings of meningioma on CT head which was measuring 7 mm consistent with imaging from 1 year ago. Per neurology, no additional intervention or imaging needed as unlikely this was causing any symptoms. With aggressive fluids and discontinuation of any calcium, vitamin D supplements, Tums hypercalcemia resolved. Calcium on discharge was 8.0. Sugars were very poorly controlled with initial glucose 300, A1c 7.8. Insulin was uptitrated and patient now will be discharged with 35 units glargine BID and 10 units lispro TIDWM. She received diabetic education while in the hospital. Chest x-ray is consistent with bilateral pulmonary consolidation, suspicion of pneumonia. She was started on IV antibiotics. She appeared to be on multiple psychiatric medications with some dosages doubled. She reports Gasper, we were unable to clearly document up-to-date medication. Several medications were discontinued including lithium as serum levels were slightly elevated.he patient requires close and urgent follow-up with both her primary care provider and psychiatrist to review and adjust her psychiatric medications appropriately. Patient is now in stable condition and ready for discharge. Recommendations were given as below. Discharge Recommendations: Hospital Diagnoses: #Insulin dependent type 2 diabetes #Meningioma #CAP #COPD #Chronic back pain #SHAY-resolving #Psychiatric disorders, bipolar disorder, depression, PTSD #Cannabis dependence #Acute metabolic encephalopathy-resolved #Severe hypercalcemia-resolved The patient's management plan was discussed with my attending physician Dr. Sexton. Nay Syed MD, PGY-1 Time Spent with Patient Time attestation: Total time spent providing and/or coordinating discharge services: Time spent: Greater than 30 minutes Exam Vital Signs Temp Pulse Resp BP Pulse Ox O2 Del Method O2 Flow Rate 97.1 F 92 18 167/98 H 95 Room Air 2 11/09/24 08:00 11/09/24 09:09 11/09/24 08:00 11/09/24 09:09 11/09/24 08:00 11/09/24 08:00 11/09/24 06:51 Narrative Exam General: Middle age female, obese, No acute distress HEENT: NCAT, No JVD noted. Mucosa moist. Pupils are equal and reactive to light bilaterally Cardiovascular: Normal S1 and S2. Regular rate and rhythm. Respiratory: Lungs are clear to auscultation bilaterally. No wheezing or crackles heard Abdomen: Soft, nontender, not distended,hypoactive bowel sounds Skin: Warm to touch, dry, no rashes noted Musculoskeletal: No gross injuries. Able to move all 4 extremities. No pitting edema Neuro: Alert and oriented x3. Discharge Plan Plan Patient Disposition: Xfer Skilled Nsg Fac (SNF) Disposition Comment: SNF for PT Patient condition on transfer: Stable Prescriptions/Referrals Prescriptions/Med Rec: New fentanyl 25 mcg/hr patch 72 hour 25 mcg topical Q3D MDD 1 every 3 days Qty: 5 0RF amoxicillin-pot clavulanate 875-125 mg tablet 1 tab PO BID 1 Days Qty: 2 0RF magnesium 200 mg tablet 200 mg PO QDAY 4 Days Qty: 4 0RF potassium, sodium phosphates [Phos-NaK] 280-160-250 mg powder in packet 1 packet PO QDAY 4 Days Qty: 100 0RF insulin glargine [Lantus Solostar U-100 Insulin] 100 unit/mL (3 mL) insulin pen 35 unit subcut BID Qty: 15 0RF insulin lispro 100 unit/mL insulin pen 10 unit subcut TIDWMEAL Qty: 15 0RF (DME) pen needle, diabetic 29 gauge x 1/2 needle See Rx Instructions .ROUTE Qty: 100 0RF Rx Instructions: As directed (DME) FreeStyle Ravi 3 Plus Sensor Device See Rx Instructions .Route Qty: 2 0RF Rx Instructions: As directed QTY 2, use with moses (DME) FreeStyle Ravi 3 Thoreau Misc See Rx Instructions .ROUTE Qty: 2 0RF Rx Instructions: As directed Continued atorvastatin 40 mg tablet 40 mg PO DAILY ropinirole 5 mg tablet 5 mg PO HS Patient Comments: TAKE ONE TABLET BY MOUTH AT BEDTIME levothyroxine 50 mcg tablet 50 mcg PO DAILY Patient Comments: TAKE ONE TABLET BY MOUTH EVERY MORNING 30 minutes BEFORE BREAKFAST metformin 500 mg tablet 500 mg PO BID Patient Comments: TAKE ONE TABLET BY MOUTH TWICE DAILY FOR DIABETES docusate sodium 100 mg Capsule 100 mg PO TID buspirone 15 mg Tablet 15 mg PO TID paroxetine HCl 40 mg tablet 40 mg PO HS Patient Comments: TAKE ONE TABLET BY MOUTH EVERY DAY AT BED TIME pantoprazole [Protonix] 40 mg tablet,delayed release (DR/EC) 40 mg PO QDAY Qty: 20 0RF ferrous sulfate [FeroSul] 325 mg (65 mg iron) tablet 325 mg PO BID Patient Comments: TAKE ONE TABLET BY MOUTH TWICE DAILY VITAMIN WITH ORANGE JUICE lamotrigine 150 mg tablet 150 mg PO HS Patient Comments: TAKE ONE TABLET BY MOUTH AT BEDTIME quetiapine 200 mg tablet 200 mg PO HS Patient Comments: TAKE 2 AND 1/2 TABLETS BY MOUTH AT BEDTIME lubiprostone 24 mcg capsule 24 mcg PO BID Patient Comments: TAKE ONE CAPSULE BY MOUTH TWICE DAILY FOR CONSTIPATION losartan 100 mg tablet 100 mg PO DAILY Patient Comments: TAKE ONE TABLET BY MOUTH EVERY DAY FOR BLOOD PRESSURE clopidogrel 75 mg tablet 75 mg PO DAILY Patient Comments: TAKE ONE TABLET BY MOUTH EVERY DAY FOR THE HEART Held risperidone 3 mg tablet 6 mg PO HS Hold Instructions: Resume on 11/23/24. hold until follow up with psychiatry Patient Comments: TAKE TWO TABLETS BY MOUTH AT BED TIME trazodone 150 mg Tablet 375 mg PO HS Hold Instructions: Resume on 11/23/24. hold until follow up with psychiatry Rx Instructions: Take 2.5 tab po HS furosemide 20 mg tablet 20 mg PO QDAY Hold Instructions: Resume on 11/23/24. follow up with PCP Patient Comments: TAKE ONE TABLET BY MOUTH EVERY DAY IN THE AFTERNOON amitriptyline 50 mg tablet 50 mg PO HS Hold Instructions: Resume on 11/23/24. hold until follow up with physiatry Patient Comments: TAKE ONE TABLET BY MOUTH AT BEDTIME FOR SLEEP Discontinued lithium carbonate 300 MG tablet extended release 300 mg PO BID Qty: 0 montelukast [Singulair] 10 MG tablet 10 mg PO QDAY Qty: 0 pregabalin 75 mg capsule 75 mg PO TID PRN (Reason: Pain) Patient Comments: TAKE ONE TABLET BY MOUTH THREE TIMES DAILY dexlansoprazole [Dexilant] 60 mg capsule,biphase delayed releas 60 mg PO DAILY Patient Comments: TAKE ONE CAPSULE BY MOUTH EVERY DAY FOR HEARTBURN GASTRIC ACIDITY tizanidine 4 mg tablet 4 mg PO BID Patient Comments: TAKE ONE TABLET BY MOUTH TWICE DAILY Movantik 25 mg tablet 25 mg PO DAILY Patient Comments: TAKE ONE TABLET BY MOUTH EVERY DAY quetiapine 300 mg Tablet 300 mg PO HS lamotrigine 100 mg Tablet 150 mg PO BID insulin glargine [Basaglar JamarPen U-100 Insulin] 100 unit/mL (3 mL) insulin pen 36 unit SUBCUT QPM Patient Comments: INJECT 36 UNITS SUBCUTANEOUSLY EVERY EVENING FOR DIABETES benzonatate 200 mg capsule 200 mg PO TID PRN (Reason: cough) Qty: 20 0RF acetaminophen 500 mg capsule 1,000 mg PO TID Qty: 30 0RF acetaminophen-codeine 300-30 mg tablet 2 tab PO TID MDD 6 PRN (Reason: pain) Qty: 20 0RF albuterol sulfate 90 mcg/actuation HFA aerosol inhaler 2 inh inhalation QID PRN (Reason: shortness of breath or wheezing) Qty: 8.5 0RF cefdinir 300 mg capsule 300 mg PO BID Qty: 14 0RF potassium chloride 10 mEq capsule, extended release 10 meq PO HS Patient Comments: TAKE ONE TABLET BY MOUTH EVERY EVENING dicyclomine 20 mg tablet 20 mg PO TIDACHS Patient Comments: TAKE ONE TABLET BY MOUTH 30 MINUTES PRIOR TO THREE MEALS (THREE TIMES DAILY) UPSET STOMACH diphenhydramine HCl [Banophen] 50 mg capsule 50 mg PO HS PRN (Reason: allergic reaction) famotidine 20 mg tablet 20 mg PO HS Patient Comments: TAKE ONE TABLET BY MOUTH EVERY EVENING HEARTBURN GASTRIC ACIDITY calcium carbonate-vitamin D3 600 mg-10 mcg (400 unit) tablet 1 tab PO BID Patient Comments: TAKE ONE TABLET BY MOUTH TWICE DAILY VITAMIN mirtazapine 7.5 mg tablet 7.5 mg PO HS Patient Comments: TAKE ONE TABLET BY MOUTH AT BEDTIME insulin glargine [Lantus Solostar U-100 Insulin] 100 unit/mL (3 mL) insulin pen 36 unit subcut QPM Ozempic 0.25 mg or 0.5 mg(2 mg/1.5 mL) pen injector 0.25 mg subcut QWEEK Rx Instructions: for 4 weeks fentanyl 50 mcg/hr patch 72 hour 50 mcg TOPICAL 3XD PRN (Reason: back pain) Patient Comments: APPLY ONE PATCH TRANSDERMALLY EVERY 3 DAYS NEEDED FOR PAIN insulin aspart U-100 100 unit/mL (3 mL) insulin pen SUBCUT Patient Comments: INJECT 16 UNITS SUBCUTANEOUSLY FOR DIABETES Referrals: Scott Lara MD [Primary Care Provider] - Patient/Caregiver Discharge Instructions Other Discharge Activity Instructions:: Continue taking antibiotic Augmentin for one more day for pneumonia treatment. Use fentanyl patch 25mcg only once every three days. Take long acting insulin glargin 35 units BID and lispro 10 untis TIDWM. Monitor glucose levels with CGM. Continue magnesium supplement 200mg daily for 4 days. Continue KPhos packet 1 once a day for 4 days. Stop taking any vitamin D supplements or TUMS due to risk of hypercalcemia. Stop taking Ozempic due to side effects. Stop taking tizanidine and quetiapine. Follow up renal panel in 1 week Stop taking lithium until you see your psychiatrist. Your levels were high in the hosptial. Take only lamotrigine 150mg HS until you see your neurologist for any dose change. Continue levothyroxine 50mcg daily for treatment of hypothyroidism. Continue atorvastatin and clopidogrel. Follow up with PCP and psychiatrist in 1-2 weeks. Print Language: Georgian Stand Alone Forms: [employer] Award Info., Patient Portal Info Letter Discharge Order Discharge Orders: Discharge (Routine); Ordered 11/09/24 Ordered By: Livier Davidson Quality Discharge Quality Measures VTE prophylaxis MD Attestestation MD Attestation I attest that I was physically present for the evaluation, physical examination, lab and imaging review of the patient with the residents. I discussed the case with the residents and agree with the findings and plans of care as documented above. Briana Sexton MD
[2024-11-09] MEDS: AZITHROMYCIN INJ 500 MG in SODIUM CHLORIDE 0.9% 250 ML 250 ML 250 MG IV (10:25)
--- NOTE | 2024-11-09 12:24 | PC.NURSE ---
call to Dr. Sexton, pt's glucose is 155, do you still want the extra 10 units of lispro with lunch, he said yes
[2024-11-09] MEDS: Magnesium Sulfate 4 GM Ivpb 4 GM/50 ML BAG IV (12:26)
--- NOTE | 2024-11-09 14:56 | PC.SS ---
Addendum entered by Vera Sequeira 11/09/24 15:47: SS received call from [employer] who stated patient will be transported at 1700. EDUAR Knowles informed Original Note: SS informed patient is ready for discharge. SS contacted [facility] and she stated patient can be recieved today. SS met with patient and family at bedside to inform of discharge. Patient's son Avery stated he is unable to provide transportation at this time. SS contacted [facility] to inquire [facility], [facility]. MAYRA was obtained and PCS [facility] was [facility] to [facility] GENE Marks and EDUAR Knowles informed of transportation ETA.
--- NOTE | 2024-11-09 16:42 | PC.NURSE ---
called report to [place]
[2024-11-11 07:02] LABS: Vitamin D,1,25 (OH)2,Total <8 pg/mL (18-72); Vitamin D2, 1,25 (OH)2 <8 pg/mL; Vitamin D3, 1,25 (OH)2 <8 pg/mL
== END 2024-11-09 17:13 | disposition skilled nursing facility (03) | DRG 640 ==
LOC: SERX 11:31 → SERHOLD 13:50 → S2SX 17:37 → S3NX 11-05 14:57
PROVIDERS: Student in an Organized Health Care Education/Training Program; Admitting Provider Student in an Organized Health Care Education/Training Program; Emergency Provider Family Medicine; PCP Family Medicine; Visit Provider Student in an Organized Health Care Education/Training Program
DX: E83.52 Hypercalcemia (principal); G93.41 Metabolic encephalopathy; J18.9 Pneumonia, unspecified organism; N17.9 Acute kidney failure, unspecified; J44.0 Chronic obstructive pulmonary disease with (acute) lower respiratory infection; R47.01 Aphasia; E11.65 Type 2 diabetes mellitus with hyperglycemia; F31.9 Bipolar disorder, unspecified; F43.10 Post-traumatic stress disorder, unspecified; E83.51 Hypocalcemia; I11.0 Hypertensive heart disease with heart failure; I50.9 Heart failure, unspecified; K59.03 Drug induced constipation; G89.29 Other chronic pain; T40.2X5A Adverse effect of other opioids, initial encounter; E78.5 Hyperlipidemia, unspecified; F12.20 Cannabis dependence, uncomplicated; G25.81 Restless legs syndrome; M79.7 Fibromyalgia; D32.9 Benign neoplasm of meninges, unspecified; E66.9 Obesity, unspecified; Z78.1 Physical restraint status; Z87.891 Personal history of nicotine dependence; Z98.1 Arthrodesis status; Z90.710 Acquired absence of both cervix and uterus; Z98.51 Tubal ligation status; Z79.4 Long term (current) use of insulin; Z79.84 Long term (current) use of oral hypoglycemic drugs; Z79.890 Hormone replacement therapy; Z79.02 Long term (current) use of antithrombotics/antiplatelets; Z79.899 Other long term (current) drug therapy; Z88.6 Allergy status to analgesic agent; Z91.018 Allergy to other foods; Z68.34 Body mass index [BMI] 34.0-34.9, adult
CPT/HCPCS: 36415; 70450; 71045; 74018; 80053; 80061; 80069; 80178; 80307; 80320; 81001; 82306; 82340; 82436; 82570; 82652; 82803; 83036; 83735; 83880; 83970; 84100; 84133; 84300; 84443; 84484; 85025; 85610; 85730; 87081; 87086; 92526; 92610; 93005; 93306; 96361; 96372; 96374; 96375; 97162; 99291; J0456; J0630; J0696; J1650; J1720; J1815; J1938; J2310; J2405; J2430; J2470; J3475; J3480; J3490; J7030; J7050; J7999; A9270; G0480

== ENCOUNTER → 2025-04-22 | Outpatient (CLI) | payer OTHER, SELFPAY ==
[2025-04-22 11:09] LABS: Basophils # (Auto) 0.0 Thou/mm3 (0.0-0.2); Basophils % (Auto) 0 % (0-2.5); Eosinophils # (Auto) 0.1 Thou/mm3 (0.0-0.5); Eosinophils % (Auto) 1 % (0-10); Hematocrit 42.7 % (36.0-46.0); Hemoglobin 13.3 g/dL (12.0-16.0); Immature Granulocytes Auto 0.03 Thou/mm3 (0.00-0.00); Lymphocytes # (Auto) 1.8 Thou/mm3 (1.0-4.8); Lymphocytes % (Auto) 22 % (10-50); Mean Corpuscular HGB Conc 31.1 g/dl (31.0-37.0); Mean Corpuscular Hemoglobin 29.9 pg (25.0-35.0); Mean Corpuscular Volume 96 fL (80-100); Monocytes # (Auto) 0.9 Thou/mm3 (0.0-0.8); Monocytes % (Auto) 10 % (0-12); Neutrophils # (Auto) 5.6 Thou/mm3 (1.8-7.7); Neutrophils % (Auto) 66 % (37-80); Nucleated Red Blood Cell # 0.00 Thou/mm3 (0.00-0.00); Nucleated Red Blood Cell % 0 /100 WBC (0); Platelet Count 270 Thou/mm3 (140-440); RDW Standard Deviation 47.0 fL (36.4-46.3); Red Blood Count 4.45 Miln/mm3 (4.00-5.20); White Blood Count 8.5 Thou/mm3 (3.6-11.0)
[2025-04-22 11:27] LABS: Glucose Estimated Average 171 mg/dL (80-131); Hemoglobin A1C 7.6 % Hgb (4.8-6.0)
[2025-04-22 11:33] LABS: Creatinine MALB Rnd Ur 161 mg/dL (30-125); Microalbumin Creat Ratio 3 mg/gCrea (<30); Microalbumin, Random Urine 5 mg/L (0-300)
[2025-04-22 12:08] LABS: Alanine Aminotransferase 13 U/L (10-49); Albumin, Serum 4.6 gm/dL (3.5-5.0); Alkaline Phosphatase 74 U/L (46-116); Anion Gap 4 (7-16); Aspartate Amino Transferase 14 U/L (0-34); BUN/Creatinine Ratio 14 Ratio (12-20); Bilirubin,Direct < 0.1 mg/dL (0.0-0.3); Bilirubin,Total 0.2 mg/dL (0.3-1.2); Blood Urea Nitrogen 13 mg/dL (9-23); Calcium 9.3 mg/dL (8.3-10.6); Carbon Dioxide 29.7 mMol/L (20.0-31.0); Chloride 107 mMol/L (98-107); Creatinine (Component) 0.9 mg/dL (0.6-1.3); Free T4 (Free Thyroxine) 1.02 ng/dL (0.89-1.76); Glucose 168 mg/dL (74-106); Osmolality,Calculated 285 (275-295); Potassium 4.5 mMol/L (3.4-5.1); Sodium 141 mMol/L (136-145); Thyroid Stimulating Hormone 1.41 uIU/mL (0.55-4.78); eGFR > 60 See Note
[2025-04-22 13:55] LABS: Cardiac Risk Estimate 4.8 RATIO (3.7-5.6); Cholesterol 181 mg/dL (132-200); HDL Cholesterol 38 mg/dL (40-60); LDL Cholesterol,Calculated 86 mg/dL (0-130); Total Protein 6.6 gm/dL (5.7-8.2); Triglycerides 285 mg/dL (30-150)
== END | disposition home or self-care (01) ==
LOC: COPL 10:11
PROVIDERS: PCP Family Medicine; Referring Provider Internal Medicine Cardiovascular Disease; Visit Provider Family Medicine
DX: E11.65 Type 2 diabetes mellitus with hyperglycemia (principal); M48.061 Spinal stenosis, lumbar region without neurogenic claudication; E03.9 Hypothyroidism, unspecified; I10 Essential (primary) hypertension; E78.5 Hyperlipidemia, unspecified; E07.9 Disorder of thyroid, unspecified
CPT/HCPCS: 36415; 80048; 80061; 80076; 82043; 82570; 83036; 84439; 84443; 85025